=== PATIENT | female | born 2000 | race Caucasian/White ===

== ENCOUNTER 2025-01-25 10:46 | Outpatient (REF) | payer MEDICAID, SELFPAY ==
--- OUTSIDE RECORDS SUMMARY | 2025-01-26 12:17 | XMS_ITS | Encounter Summary ---
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/HCC) Brittni Vargas MD [address] [place] [address] Phone: tel: fax: Referral ID Status Reason Start Date Expiration Date Visits Requested Visits Authorized [id number] Authorized Specialty Services Required 01/25/2025 01/25/2026 1 1 * Hospital - Outpatient (Routine) - Authorized Specialty Diagnoses / Procedures Referred By Kwabena hall Referred To Contact Diagnoses Sleep apnea, unspecified type Procedures Home sleep test Brittni Vargas MD [address] [place] [address] Phone: tel: fax: [address] Phone: tel: fax: Referral ID Status Reason Start Date Expiration Date V isits Requested Visits Authorized [id number] Authorized 01/25/2025 01/25/2026 1 1 Reason for Visit * Reason Comments Cervical Cancer Screening Encounter Details Date Type Department Care Team (Latest Contact Info) Description 01/25/2025 11:00 AM EDT Procedure Visit [facility] [address] [place] [address] Brittni Vargas MD [address] [place] [address] Cervical cancer screening (Primary Dx); Sleep apnea, [...] 01/25/2025 11:26 AM E DT Respiratory Rate 01/25/2025 11:26 AM EDT Oxygen Saturation 98% [...] Exam Vitals reviewed. Exam conducted with a orientation and mobility instructor present. Constitutional: General: She is not in [...] in partial remission, most recent episode mixed ([facility]) Reports has not been able to obtain her psych medications given does not have her insurance card. Needs management by psychiatric provider, referral sent & called. Relevant Orders Referral to Behavioral Health Psychiatry Sleep apnea Patient reports was diagnosed with sleep apnea a couple of years ago in [place], reports she does nothave supplies, no reports [...] in partial remission, most recent episode mixed ([facility]) Reports has not been able to obtain her psych medications given does not have her insurance card. Needs management by psychiatric provider, referral sent & BH called. * Assessment & Plan Note - Brittni Vargas MD - 01/25/2025 12:00 PM EDT Associated Problem(s): Sleep apnea Patient reports was diagnosed with sleep apnea a couple of years ago in [place], reports she does nothave supplies, no reports available. At this moment will need to proceed with new study. Report using CPAP. documented in this encounter Plan of Treatment Upcoming Encounters Date Type Department Care Team (Late st Contact Info) Description 02/21/2025 1:15 PM EDT Office Visit [facility] [address] [place] [address] Brittni Vargas MD [address] [place] [address] Scheduled Orders Name Type Priority Associated Diagnoses Orde r Schedule Home sleep test Sleep Center Routine Sleep apnea, unspecified type Expected: 01/25/2025 (Approximate), Expires: 01/25/2026 STI testing add on (NG, CT, Trich) Pathology and Cytology Routine Cervical cancer screening Ordered: 01/25/2025 Pap Smear Pathology and Cytology Routine Cervical cancer screening Ordered: 01/25/2025 Scheduled Referrals Name Type Priority Associated Diagnoses Order Schedule Referral to Behavioral Health Psychiatry Outpatient Referral Routine Bipolar disorder, in partial remission, most recent episode mixed ([facility]) Expected: 01/25/2025 (Approximate), Expires: 01/25/2026 documented as of this encounter Procedures Procedure Name Priority Date/Time Associated Diagnosis Comments BACTERIAL VAGINOSIS PANEL Routine 01/25/2025 12:00 AM EDT Acute vaginitis documented in this encounter Results * Bacterial Vaginosis (01/25/2025 12:00 AM EDT) TRICHOMONAS VAGINALIS DETECTION BY PCR NOT DETECTED Not Detect [facility] BACTERIAL VAGINOSIS DETECTION BY PCR NEGATIVE Negative [facility] Comment:The BV organism targ ets of the Xpert Xpress MVP test can becommensal in women; Xpert Xpress MVP positive results forbacterial vaginosis should be considered in conjunction withother clinical and patient information to determine thedisease status. Organisms that are not detected by the XpertXpress MVP test have also been reported to be associatedwith BV and aerobic vaginitis.The Xpert Xpress MVP test performance has not been evaluatedin patients under the age of 14. QUYEN GROUP DETECTION BY PCR NOT DETECTED Not Detect [facility] Quyen glab krusei PCR NOT DETECTED Not Detect [facility] Swab Vaginal structure / Unknown 01/25/2025 01/25/2025 us Brittni Vargas MD LAB MICROBIOLOGY - GENERAL OR DERABLES Final Result [facility] [address] [place] [phone] documented in this encounter Visit Diagnoses Diagnosis Cervical cancer [...]
--- OUTSIDE RECORDS SUMMARY | 2025-01-26 12:17 | XMS_ITS | Clinical Summary ---
Author Organization [employer] Address [address] [facility] [address] [place] [address] Care Team Providers Care Residency Program Coordinator Name Role Phone Unavailable Primary Care [...] by mouth at bedtime. 90 tablet 01/12/20 25 Active FLUoxetine (PROzac) 20 MG capsule Take 2 capsules (40 mg) by mouth Once per day. 90 capsule 01/12/20 25 Active pramipexole (Mirapex) 0.25 MG tablet Take [...] Once per day. 28 tablet 3 01/12/20 25 Active metroNIDAZOLE (Flagyl) 500 MG tablet Take [...] Last pcp visit 6 months ago ER: stair fall April 2024 @ [facility] Hospitalizations: mental health 2023 Pmhx: autism, bipolar [...] Description 01/25/2025 11:00 AM EDT Procedure Visit [facility] [address] [place] [address] Brittni Vargas MD Cervical cancer screening (Primary Dx); Sleep apnea, unspecified type; Bipolar disorder, in partial remission, most recent episode mixed (CMS/HCC); Acute vaginitis 01/25/2025 Telephone [facility] [address] [place] [address] Brittni Vargas MD 01/25/2025 Travel 01/20/2025 Population Health Risk Score [facility] () Department [address] [place] [address] [phone] Provider, Population Health Generic 01/11/2025 1:00 PM EDT Telemedicine [facility] [address] [place] [address] Neville Barbosa MD Encounter for medical examination [...] Description 02/21/2025 1:15 PM EDT Office Visit [facility] [address] [place] [address] Brittni Vargas MD [address] [place] [address] Health Maintenance Due Date Last Done Comments SDOH Screening 1998 Disability Screening 1998 Alcohol/Substance Use Screening 2010 Family Planning (PISQ) 2013 HPV Vaccines (1 - 3-dose series) 2013 DTaP/Tdap/Td Vaccines (1 - Tdap) 2017 Hepatitis B Vaccines (1 of 3 - 19+ 3-dose series) 2017 Pap Smear 2019 COVID-19 Vaccine (1 - 2023-2 5 season) 2024 Influenza Vaccine (#1) 2024 Depression Screening 01/25/2026 01/25/2025, 01/25/2025 Tobacco Screening 01/25/2026 01/25/2025 Lipid Panel 01/25/2030 01/25/2025 Zoster Vaccines (1 of 2) 2048 RSV Patients and Patients Aged 60 years or older (1 - 1-dose 75+ series) 2073 HIV Screening Completed 01/25/2025 Hepatitis C Screening Completed 01/25/2025 HIB Vaccines Aged Out No longer eligi [...] on patient's age to complete this topic Procedures Procedure Name Priority Date/Time Associated Diagnosis Comments HEPATITIS C AB W/REFL TO HCV RNA, QN, PCR Routine 01/25/2025 1:22 PM EDT Encounter for medical examination to establish care HIV 1/2 ANTIGEN/ANTIBODY, FOURTH GENERATION W/RFL Routine 01/25/2025 1:22 PM EDT Encounter for medical examination to establish care TSH W/REFLEX TO FT4 Routine 01/25/2025 1 :22 PM EDT Encounter for medical examination to establish care LIPID PANEL, STANDARD Routine 01/25/2025 1:22 PM EDT Encounter for medical examination to establish care COMPREHENSIVE METABOLIC PANEL Routine 01/25/2025 1:22 PM EDT Encounter for medical examination to establish care HEMOGLOBIN A1C Routine 01/25/2025 1:22 PM EDT Encounter for medical examination to establish care HCG, TOTAL, QN Routine 01/25/2025 1:22 PM EDT Encounter for medical examination to establish care CBC WITH AUTO DIFFERENTIAL Routine 01/25/2025 1:22 PM EDT Encounter for medical examination to establish care BACTERIAL VAGINOSIS PANEL Routine 01/25/2025 12:00 AM EDT Acute vaginitis from Last 3 Months Results * TSH W/Reflex to FT4 (01/25/2025 1:22 PM EDT) Pathologist [facility] TSH reflex Free T4 2.37 0.32 - 4.0 uIU/mL [facility] Blood Venous blood specimen / Unknown 01/25/2025 1:22 PM EDT 01/25/2025 2:14 PM EDT Neville Monteiro MD LAB BLOOD ORDERABL ES Final Result [facility] [address] [place] [phone] * (ABNORMAL) CBC auto differential (01/25/2025 1:22 PM EDT) Pathologist [facility] White Blood Count 9.7 4.8 - 10.8 X10*3/uL [facility] Red Blood Count 4.60 4.20 - 5.50 X10*6/uL [facility] Hemoglobin 13.0 12.0 - 16.0 g/dl [facility] Hematocrit 38.2 37.0 - 47.0 % [facility] Mean Corpuscular Volume 83.0 80.0 - 98.0 fL [facility] Mean Corpuscular Hemoglobin 28.3 27.0 - 33.0 pg [facility] Mean Corpuscular HGB Conc 34.0 31.0 - 35.0 g/dl [facility] Red Cell Distribution Width 12.3 11.0 - 16.0 % [facility] Platelet Count 326 160 - 400 X10*3/uL [facility] Mean Platelet Volume 9.6 9.4 - 12.3 fL [facility] Neutrophils Percent Auto 68.9 45 - 73 % [facility] Imm Gran Pct Auto 0.9(H) 0.0 - 0.4 % [facility] Lymphocytes Percent Auto 23.0 20 - 40 % [facility] Monocytes Percent Auto 5.3 2 - 11 % [facility] Eosinophils Percent Auto 1.6 0 - 4 % [facility] Basophils Percent Auto 0.3 0 - 2 % [facility] NRBC Pct Auto 0.0 0.0 - 0.2 /100WBC [facility] Neutrophils Absolute Auto 6.7 2.0 - 8.3 x10*3/uL [facility] Imm Gran Abs Auto 0.09(H) 0.00 - 0.03 X10*3/uL [facility] Lymphocytes Absolute Auto 2.2 1.2 - 4.9 X10*3/uL [facility] Monocytes Absolute Auto 0.5 0.1 - 1.2 X10*3/uL [facility] Eosinophils Absolute Auto 0.2 0.0 - 0.4 X10*3/uL [facility] Basophils Absolute Auto 0.0 0.0 - 0.2 X10*3/uL [facility] NRBC Abs Auto 0.000 0.0 - 0.012 X10*3/uL [facility] Blood Venous blood specimen / Unknown 01/25/2025 1:22 PM EDT 01/25/2025 2:17 PM EDT us Neville Monteiro MD LAB BLOOD ORDERABL ES Final Result [facility] [address] [place] [phone] * Hepatitis C Antibody with Reflex to HCV, RNA, Quantitative, Real-Time PCR (01/25/2025 1:22 PM EDT) Hepatitis C Antibody Nonreactive Nonreactive [facility] Comment:Antibodies to HCV no t detected; does not exclude early acuteHCV infection. Blood Venous blood specimen / Unknown 01/25/2025 1:22 PM EDT 01/25/2025 2:14 PM EDT Neville Monteiro MD LAB BLOOD ORDERABL ES Final Result Performing Organization Address [facility] Co de Phone Number [facility] [address] [place] [phone] * HIV-1/2 Antigen and Antibodies, Fourth Generation, with Reflexes (01/25/2025 1:22 PM EDT) HIV AB/AG Nonreactive Nonreactive [facility] Comment:HIV-1 p24 Ag and/or HIV-1/HIV-2 Ab not detected.A test result that is nonreactive does not exclude thepossibility of exposure to or infection with HIV-1 and/orHIV-2. Nonreactive results in this assay for individualswith prior exposure to HIV-1 and/or HIV-2 may be due toantigen and antibody levels that are below the limit ofdetection of this assay.The [employer] HIV Ag/Ab Combo assay result andsupplemental assay results should be interpreted inconjunction with the patient's clinical presentation,history and other laboratory results. If the results areinconsistent with clinical evidence, additional testing issuggested to confirm the result. Blood Venous blood specimen / Unknown 01/25/2025 1:22 PM EDT 01/25/2025 2:14 PM EDT us Neville Monteiro MD LAB BLOOD ORDERABL ES Final Result Performing Organization Address [facility]/ZIP Co de Phone Number [facility] [address] [place] [phone] * hCG, Total, Quantitative (01/25/2025 1:22 PM EDT) HCG Quantitative <2 mIU/mL [facility] Comment:Weeks post LMP Appro ximate hCG(Last Menstrual Period) Range (mIU/ml)3 - 4 weeks 9 - 1304 - 5 weeks 75 - 2,6005 - 6 weeks 850 - 20,8006 - 7 weeks 4000 - 100,2007 - 12 weeks 11,500 - 289,94109 - 16 weeks 18,300 - 137,95320 - 29 weeks (2nd trimester) 1,400 - 53,48961 - 41 weeks (3rd trimester) 940 - 60,000The [employer] B- hCG assay is used for the early detection ofpregnancy; it cannot be used to diagnose any conditionunrelated to . If a B-hCG level is not supportedby the clinical evidence, results should be confirmed by analternative method (qualitative urine hCG, for example). Blood Venous blood specimen / Unknown 01/25/2025 1:22 PM EDT 01/25/2025 2:14 PM EDT Neville Monteiro MD LAB BLOOD ORDERABL ES Final Result [facility] [address] [place] [address] [phone] * Hemoglobin A1c (01/25/2025 1:22 PM EDT) Hemoglobin A1c 5.3 <6.0 % [facility] Comment:Hemoglobin A1C Refer ence Range Adults: 4.8 - 6.0 % Non diabetic: < 6.0 % Goal: < 7.0 %Additional Action Suggested: > 8.0 %Note: Hemoglobin A1c results are invalid for patients with abnormal amounts of HbF. Blood transfusions may impact the HbA1c concentration in the patient sample. Estimated Average Glucose 105 mg/dL [facility] Comment:eAG = Estimated ave rage glucose which is %A1C expressed asaverage glucose, using the formula of the K0E-FilprxcTeomsvv Glucose study (ADAG), Diabetes Care, Vol.31,#8,Apr. 2007 Blood Venous blood specimen / Unknown 01/25/2025 1:22 PM EDT 01/25/2025 2:17 PM EDT Neville Monteiro MD LAB BLOOD ORDERABL ES Final Result Performing Organization Address [facility]/ZIP Co de Phone Number [facility] [address] [place] [phone] * (ABNORMAL) Lipid Panel, Standard (01/25/2025 1:22 PM EDT) Triglycerides 93 <150 mg/dL [facility] Comment:Desirable Triglyceri de: less than 150 mg/dLBorderline High Triglyceride 150-199 mg/dLHigh Triglyceride: 200-499 mg/dLVery High Triglyceride: greater than or equal to 5OO mg/dL Cholesterol 161 <200 mg/dL [facility] Comment:Desirable Cholestero l: less than 200 mg/dLBorderline High Cholesterol: 200-239 mg/dLHigh Cholesterol: greater than 239 mg/dL LDL Cholesterol Calculated 114(H) <100 mg/dL [facility] Comment:Desirable LDL: less than 100 mg/dLNear Optimal/Above Optimal LDL: 110- 129 mg/dLBorderline High LDL: 130-159 mg/dLHigh LDL: 160-189 mg/dLVery High LDL: greater than or equal to 190 mg/dL HDL Cholesterol 29(L) >40 mg/dL [facility] Comment:Desirable HDL: great er than 40 mg/dL Note: This HDL assay may give artificially low results in patients with liver disease. Blood Venous blood specimen / Unknown 01/25/2025 1:22 PM EDT 01/25/2025 2:14 PM EDT Neville Monteiro MD LAB BLOOD ORDERABL ES Final Result Performing Organization Address City/[facility]/ZIP Co de Phone Number [facility] [address] [place] [phone] * (ABNORMAL) Comprehensive Metabolic Panel (01/25/2025 1:22 PM EDT) Sodium 138 135 - 145 mmol/L [facility] Potassium 4.3 3.3 - 5.1 mmol/L [facility] Chloride 108 96 - 108 mmol/L [facility] Carbon Dioxide 24 22 - 29 mmol/L [facility] Anion Gap 10(L) 12 - 20 [facility] Urea Nitrogen (BUN) 14 9 - 16 mg/dL [facility] Creatinine, Serum 0.72 0.5 - 1.4 mg/dL [facility] Estimated Glomerular Filt Rate >60 [facility] Comment:Chronic Kidney Disea se: Estimated GFR < 60 mL/min/1.51p8Uvftlg Kidney Disease: Estimated GFR < 15 mL/min/1.73m2 Glucose 94 60 - 115 mg/dL [facility] Calcium 9.1 8.4 - 10.2 mg/dL [facility] Bilirubin, Total 0.3 0.0 - 1.0 mg/dL [facility] Aspartate Amino Transferase 19 5 - 31 U/L [facility] Alanine Aminotransferase 15 0 - 31 U/L [facility] Total Protein 7.0 6.5 - 8.0 g/dL [facility] Albumin Level 3.9 3.5 - 5.0 g/dL [facility] Alkaline Phosphatase 60 39 - 117 U/L [facility] Blood Venous blood specimen / Unknown 01/25/2025 1:22 PM EDT 01/25/2025 2:14 PM EDT us Neville Monteiro MD LAB BLOOD ORDERABL ES Final Result [facility] [address] [place] [phone] * Bacterial Vaginosis (01/25/2025 12:00 AM EDT) TRICHOMONAS VAGINALIS DETECTION BY PCR NOT DETECTED Not Detect [facility] BACTERIAL VAGINOSIS DETECTION BY PCR NEGATIVE Negative [facility] Comment:The BV organism targ ets [...] DETECTION BY PCR NOT DETECTED Not Detect [facility] Quyen glab krusei PCR NOT DETECTED Not Detect [facility] Swab Vaginal structure / Unknown 01/25/2025 01/25/2025 us Brittni Vargas MD LAB MICROBIOLOGY - GENERAL OR DERABLES Final Result [facility] [address] [place] [phone] from Last 3 Months Insurance [facility] C3
--- OUTSIDE RECORDS SUMMARY | 2025-01-26 12:17 | XMS_ITS | Encounter Summary ---
Author Organization [employer] [facility] Address [address] [facility] [address] [place] [address] Care Team Providers Care Nutrition Educator Name Role Phone Unavailable Primary Care Provider [...] Author 11 01/25/2025 1:24 PM EDT Jabier Cordon * How difficult have these problems made [...] or on edge 3 01/25/2025 1:15 PM EDJabier Concepcion Not being able to stop or control [...] happen 1 01/25/2025 1:15 PM EDT Jabier Thurston GLENNA-7 Total Score 15 01/25/2025 1:15 PM EDT Jabier [place] documented as of this encounter Plan of Treatment Upcoming Encounters Date Type Department Care Team (Late st Contact Info) Description 02/21/2025 1:15 PM EDT Office Visit [facility] [address] [place] [address] Brittni Vargas MD [address] [place] [address] documented as of this encounter Visit Diagnoses Not on filedocumented in this encounter Additional Health Concerns Assessment Noted Time PHQ-9 Depression Total Score: 11 025 1:24 PM EDT documented as of this encounter
--- OUTSIDE RECORDS SUMMARY | 2025-01-26 12:17 | XMS_ITS | Encounter Summary ---
Author Organization [employer] Address [address] [facility] [address] [place] [address] Care Team Providers Care Coffee Taster Name Role Phone Unavailable Primary Care Provider Unavailabl e Encounter Details Date Type Department Care Team (Late st Contact Info) Description 01/25/2025 Telephone [facility] [address] [place], [place] [phone] Brittni Vargas MD [address] [place], [place] [phone] Social History Tobacco Use Types Packs/Day Years [...] t o TP appt next month with Dr Varags. * Telephone Encounter - Savanah Coppola RN [...] Description 02/21/2025 1:15 PM EDT Office Visit [facility]S [address] [place] [address] Brittni Vargas MD [address] [place] [address] documented as of this encounter Visit Diagnoses Not on filedocumented in this encounter Additional Health Concerns Assessment Noted Time PHQ-9 Depression Total Score: 11 025 1:24 PM EDT documented as of this encounter
[2025-01-27 19:48] LABS: C. trachomatis RNA TMA NOT DETECTED (NOT DETECTED); N. gonorrhoeae RNA TMA NOT DETECTED (NOT DETECTED); Trichomonas (NAAT) NOT DETECTED (NOT DETECTED)
== END 2025-01-25 10:47 | disposition home or self-care (01) ==
LOC: HO.HHCLNP 10:46
PROVIDERS: Visit Provider Family Medicine
DX: Z12.4 Encounter for screening for malignant neoplasm of cervix (principal); Z11.3 Encounter for screening for infections with a predominantly sexual mode of transmission
CPT/HCPCS: 87491; 87591; 87661; 88175

== ENCOUNTER 2025-01-25 13:12 | Outpatient (REF) | payer MEDICAID, SELFPAY ==
[2025-01-25 14:19] LABS: MANUAL DIFF FLAG NO
--- OUTSIDE RECORDS SUMMARY | 2025-01-25 14:22 | XMS_ITS | Encounter Summary ---
Author Organization [employer] Address [address] [facility] [address] [place] [address] Care Team Providers Care Aoc Plans Intelligence Officer Chief Name Role Phone Unavailable Primary Care Provider Unavailabl e Encounter Details Date Type Department Care Team ([facility] st Contact Info) Description 01/25/2025 Telephone [facility] MED & PEDS [address] [place] [address] Brittni Vargas MD [address] [place] [address] Social History Tobacco Use Types Packs/Day Years Used Date Smoking Tobacco: Never Smokeless Tobacco: Current Snuff Alcohol Use Standard Drinks/Week Comments Never 0 (1 standard drink = 0.6 oz pur e alcohol) Depression Answer Date Recorded Patient Health Questionnaire-9 Score 11 01/25/2025 Patient Health Questionnaire-9 Score 11 01/25/2025 Last PHQ-9: Questionnaire Data Not on file 0 01/25/2025 Depression Answer Date Recorded Patient Health Questionnaire-2 Score 6 01/25/2025 Comments Unknown Sex and Gender Information Value Date Recorded Sex Assigned at Female 01/07/2025 3:10 PM EDT Legal Sex Female 3:10 PM EDT Gender Identity Female 01/10/2025 2:25 PM EDT Sexual Orientation Don't know 01/10/2025 2: 25 PM EDT documented as of this encounter Miscellaneous Notes * Telephone Encounter - Savanah Coppola RN - 01/25/2025 11:23 AM EDT Pt came in for PAP. Pt was advised to come to [facility] to get TP appt scheduled . Pt agrees t o TP appt next month with . * Telephone Encounter - Savanah Coppola RN - 01/25/2025 11:23 AM EDT ----- Message from Lesvia Forrest sent at 01/11/2025 2:38 PM EDT ----- Regarding: wrap up Joo Young, This pt had a tele with on 01/11/25. Patient would like to be followed by a women provider. ( Follow up in about 3 months (around 04/13/2025) for 3-4 months, patient wants to be seen by a female provider. ) Thank you Kindly, documented in this encounter Plan of Treatment Upcoming Encounters Date Type Department Care Team (Late st Contact Info) Description 02/21/2025 1:15 PM EDT Office Visit [facility] MED & PEDS [address] [place] [address] Brittni Vargas MD [address] [place] [address] documented as of this encounter Visit Diagnoses Not on filedocumented in this encounter Additional Health Concerns Assessment Noted Time PHQ-9 Depression Total Score: 11 025 1:24 PM EDT documented as of this encounter
--- OUTSIDE RECORDS SUMMARY | 2025-01-25 14:22 | XMS_ITS | Clinical Summary ---
Author Organization [employer] Address [address] [facility] [address] [place] [address] Care Team Providers Care Site Safety Representative Name Role Phone Unavailable Primary Care Provider Unavailabl e Allergies Active Allergy Reactions Criticality Noted Date Comments Juniper Berries Anaphylaxis High 01/11/2025 Medications * This document contains information received from the source organization and may not represent a complete record from that organization. methocarbamol (Robaxin) 750 MG tablet Take 750 mg by mouth if needed each day for muscle spasms. Active diclofenac (Voltaren) 75 MG EC tablet Take 75 mg by mouth if needed in the morning and at bedtime (pain). Do not crush, chew, or split. Active propranolol (Inderal) 20 MG tabletIndicati ons:Anxiety Take 20 mg by mouth 2 times daily. Active traZODone (Desyrel) 100 MG tablet Take 200 mg by mouth at bedtime. Active montelukast (Singulair) 10 MG tablet Take 10 mg by mouth at bedtime. Active hyoscyamine (Levsin) 0.125 MG/5ML elixir Take 125 mcg by mouth every 12 (twelve) hours if needed for bladder spasms. Active hydrOXYzine HCl (Atarax) 25 MG tablet Take 1 tablet (25 mg) by mouth every 8 (eight) hours if needed for anxiety. 90 tablet 3 01/12/20 25 026 Active ferrous gluconate (Fergon) 324 (38 Fe) MG tablet Take 1 tablet (324 mg) by mouth with breakfast. 90 tablet 01/12/20 25 Active amphetamine-de xtroamphetamin e XR (Adderall XR) 15 MG 24 hr capsule Take 1 capsule (15 mg) by mouth in the morning. Do not crush or chew. 30 capsule 01/12/20 25 Active haloperidol (Haldol) 1 MG tablet Take 1 tablet (1 mg) by mouth at bedtime. 90 tablet 01/12/20 Active FLUoxetine (PROzac) 20 MG capsule Take 2 capsules (40 mg) by mouth Once per day. 90 capsule 01/12/20 Active pramipexole (Mirapex) 0.25 MG tablet Take 3 tablets (0.75 mg) by mouth Once per day. 90 tablet 01/12/20 25 Active albuterol 108 (90 Base) MCG/ACT inhaler Inhale 2 puffs every 6 (six) hours if needed for wheezing. 18 g 01/12/20 25 Active ketoconazole (NIZOral) 2 % cream Apply 1 Application. topically Once per day. Active drospirenone-e thinyl estradiol (Alejandrina, Gianvi) 3-0.02 MG tablet Take 1 tablet by mouth Once per day. 28 tablet 3 01/12/20 026 Active metroNIDAZOLE (Flagyl) 500 MG tablet Take 1 tablet (500 mg) by mouth 2 times daily for 7 days. 14 tablet 01/26/20 25 025 Active hydrOXYzine HCl (Atarax) 25 MG tablet Take 25 mg by mouth every 8 (eight) hours if needed for anxiety. 025 Discontinued(Re order (will not trigger notification to Pharmacy)) haloperidol (Haldol) 1 MG tablet Take 1 mg by mouth at bedtime. 025 Discontinued(Re order (will not trigger notification to Pharmacy)) amphetamine-de xtroamphetamin e XR (Adderall XR) 15 MG 24 hr capsule Take 15 mg by mouth in the morning. Do not crush or chew. 025 Discontinued(Re order (will not trigger notification to Pharmacy)) FLUoxetine (PROzac) 20 MG capsule Take 40 mg by mouth Once per day. 025 Discontinued(Re order (will not trigger notification to Pharmacy)) ferrous gluconate (Fergon) 324 (38 Fe) MG tablet Take 324 mg by mouth with breakfast. 025 Discontinued(Re order (will not trigger notification to Pharmacy)) Active Problems Problem Noted Date Diagnosed Date Sleep apnea 01/25/2025 Assessment & Plan (01/25/2025 12:00 PM EDT): Patient reports was diagnosed with sleep apnea a couple of years ago in [place], reports she does not have supplies, no reports available. At this moment will need to proceed with new study. Report using CPAP. Cervical cancer screening 01/25/2025 Assessment & Plan (01/25/2025 12:03 PM EDT): 24 y.o. here for cervical cancer screening. Will continue monitoring following ASCCP guidelines. Acute vaginitis 01/25/2025 Assessment & Plan (01/25/2025 12:03 PM EDT): Consistent with BV, will send swab and rx metronidazole 500 mg BID Anxiety with depression 01/25/2025 Encounter for medical examination to establish c are 01/11/2025 Assessment & Plan (01/11/2025 1:21 PM EDT): Last pcp visit 6 months ago ER: [facility] [address] April 2024 @ [place] Hospitalizations: mental health 2023 Pmhx: autism, bipolar depression, boderline personality, adhd, cptsd, sleep apnea, iron def anemia, pre diabetes PSHX: cholecystectomy 2020, All: juniper/gin Meds Bipolar disorder, in partial remission, most recent episode mixed 01/11/2025 Assessment & Plan (01/25/2025 12:03 PM EDT): Reports has not been able to obtain her psych medications given does not have her insurance card. Needs management by psychiatric provider, referral sent & called. Assessment & Plan (01/11/2025 1:42 PM EDT): Will renew medications, will refer to for evaluation, no active suicidal/homicidal ideas Chronic pain of both ankles 01/11/2025 Assessment & Plan (01/11/2025 1:43 PM EDT): Patient fell from stairs back on September that required a ER visit, patient is requesting a podiatry evaluation, will place referral Encounter for initial prescription of contracept pippa pills 01/11/2025 Encounters * This document contains information received from the source organization and may not represent a complete record from that organization. Date Type Department Care Team Description 01/25/2025 11:00 AM EDT Procedure Visit [facility] MED & PEDS [address] [place] [address] Brittni Vargas MD Cervical cancer screening (Primary Dx); Sleep apnea, unspecified type; Bipolar disorder, in partial remission, most recent episode mixed (CMS/HCC); Acute vaginitis 01/25/2025 Telephone [facility] MED & PEDS [address] [place] [address] Brittni Vargas MD 01/25/2025 Travel 01/20/2025 Population Health Risk Score [facility] ([facility]) Department [address] [place] [id number] Provider, Population Health Generic 01/11/2025 1:00 PM EDT Telemedicine [facility] MED & PEDS [address] [place] [address] Neville Barbosa MD Encounter for medical examination to establish care (Primary Dx); Bipolar disorder, in partial remission, most recent episode mixed (CMS/HCC); Chronic pain of both ankles; Encounter for initial prescription of contraceptive pills 01/11/2025 Travel from Last 3 Months Family History Medical History Relation Name Comments Asperger's syndrome Father Bipolar disorder Father Diabetes Father Leukemia Maternal Grandfather Ovarian cancer Maternal Grandmother Breast cancer Mother Coronary artery disease Mother Deep vein thrombosis Mother Diabetes Mother Hypertension Mother Relation Name Status Comments Father Maternal Grandfather Maternal Grandmother Mother Social History Tobacco Use Types Packs/Day Years Used Date Smoking Tobacco: Never Smokeless Tobacco: Current Snuff Tobacco Cessation:Ready to Q uit: Not Asked; Counseling Given: Not Answered Alcohol Use Standard Drinks/Week Comments Never 0 [...] Don't know 01/10/2025 2: 25 PM EDT Last Filed Vital Signs Vital Sign Reading Time Taken Comments Blood Pressure 127/72 01/25/2025 11:26 AM EDT Pulse 80 01/25/2025 11:26 AM EDT Temperature 36.5 ??C (97.7 ??F) 01/25/2025 11:26 AM E DT Respiratory Rate 20 01/25/2025 11:26 AM EDT Oxygen Saturation 98% 01/25/2025 11:26 AM EDT Inhaled Oxygen Concentration - - Weight 116 kg (255 lb) 01/25/2025 11:26 AM EDT Height 165.1 cm (5' 5 ) 01/25/2025 11:26 AM EDT Body Mass Index 42.43 01/25/2025 11:26 AM EDT Plan of Treatment Upcoming Encounters Date Type Department Care Team (Late st Contact Info) Description 02/21/2025 1:15 PM EDT Office Visit [facility] MED & PEDS [address] [place] [address] Brittni Vargas MD [address] [place] [address] Health Maintenance Due Date Last Done Comments HIV Screening 1998 Lipid Panel 1998 SDOH Screening 1998 Disability Screening 1998 Alcohol/Substance Use Screening 2010 Family Planning (PISQ) 2013 HPV Vaccines (1 - 3-dose series) 2013 Hepatitis C Screening 2016 DTaP/Tdap/Td Vaccines (1 - Tdap) 2017 Hepatitis B Vaccines (1 of 3 - 19+ 3-dose series) 2017 Pap Smear 2019 COVID-19 Vaccine (1 - 2023-2 5 season) 2024 Influenza Vaccine (#1) 2024 Depression Screening 01/25/2026 01/25/2025, 01/25/2025 Tobacco Screening 01/25/2026 01/25/2025 Zoster Vaccines (1 of 2) 2048 RSV Patients and Patients Aged 60 years or older (1 - 1-dose 75+ series) 2073 HIB Vaccines Aged Out No longer eligi ble based on patient's age to complete this topic Hepatitis A Vaccines Aged Out No long er eligible based on patient's age to complete this topic IPV Vaccines Aged Out No longer eligi ble based on patient's age to complete this topic Meningococcal B Vaccine Aged Out No l onger eligible based on patient's age to complete this topic Meningococcal Vaccine Aged Out No kelsi susan eligible based on patient's age to complete this topic Pneumococcal Vaccine: Pediatrics (0 to 5 Years) and At-Risk Patients (6 to 49) Years) Aged Out No longer eligible b ased on patient's age to complete this topic RSV under 20 months Aged Out No longe r eligible based on patient's age to complete this topic Rotavirus Vaccines Aged Out No longer eligible based on patient's age to complete this topic Insurance [facility] C[facility]
--- OUTSIDE RECORDS SUMMARY | 2025-01-25 14:22 | XMS_ITS | Encounter Summary ---
Author Organization [facility] [facility] Address [address] [facility] 7[address] [place] [address] Care Team Providers Care City Secretary Name Role Phone Unavailable Primary Care Provider Unavailabl e Encounter Details Date Type Department Care Team (Late Contact Info) Description 01/20/2025 Population Health Risk Score [facility] ([facility]) Department [address] [id number] Provider, Population Health Generic Social History Tobacco Use Types Packs/Day Years Used Date Smoking Tobacco: Never Smokeless Tobacco: Current Snuff Alcohol Use Standard Drinks/Week Comments Never 0 (1 standard drink = 0.6 oz pur e alcohol) Comments Unknown Sex and Gender Information Value Date Recorded Sex Assigned at Female 01/07/2025 3:10 PM EDT Legal Sex Female 3:10 PM EDT Gender Identity Female 01/10/2025 2:25 PM EDT Sexual Orientation Don't know 01/10/2025 2: 25 PM EDT documented as of this encounter Plan of Treatment Upcoming Encounters Date Type Department Care Team (Late st Contact Info) Description 02/21/2025 1:15 PM EDT Office Visit [facility] MED & PEDS [address] [place] [address] Brittni Vargas MD [address] [place] [address] documented as of this encounter Visit Diagnoses Not on filedocumented in this encounter
--- OUTSIDE RECORDS SUMMARY | 2025-01-25 14:22 | XMS_ITS | Encounter Summary ---
Author Organization [employer] Address [address] [facility] [address] [place] [address] Care Team Providers Care Auto Brake Technician Name Role Phone Unavailable Primary Care Provider Unavailabl e Encounter Details Date Type Department Care Team (Latest Contact Info) Description 01/25/2025 Travel Social History Tobacco Use Types Packs/Day Years [...] PM EDT documented as of this encounter Functional Status * Over the past 2 weeks, how often have you been bothered by any of the following problems? Question Answer Date of Assessment Author Patient Health Questionnaire-2 Score 6 01/25/2025 1:24 PM EDT Jabier Peña * Little interest or pleasure in doing things Answer Date of Assessment Author Nearly every day 01/25/2025 1:24 PM EDT Jabier Thurston * Feeling down, depressed, or hopeless Answer Date of Assessment Author Nearly every day 01/25/2025 1:24 PM EDT Jabier Thurston * Trouble falling or staying asleep, or sleeping too much Answer Date of Assessment Author More than half the days 01/25/2025 1:24 PM EDT Jabier Lee * Feeling tired or having little energy Answer Date of Assessment Author Several days 01/25/2025 1:24 PM EDT Jabier Cordon * Poor appetite or overeating Answer Date of Assessment Author Several days 01/25/2025 1:24 PM EDT Jabier Cordon * Feeling bad about yourself - or that you are a failure or have let yourself or your family down Answer Date of Assessment Author Several days 01/25/2025 1:24 PM EDT Jabier Cordon * Trouble concentrating on things, such as reading the newspaper or watching television Answer Date of Assessment Author Not at all 01/25/2025 1:24 PM EDT Jabier Cordon * Moving or speaking so slowly that other people could have noticed? Or the opposite - being so fidgety or restless that you have been moving around a lot more than usual. Answer Date of Assessment Author Not at all 01/25/2025 1:24 PM EDT Jabier Cordon * Thoughts that you would be better off or hurting yourself in some way Answer Date of Assessment Author Not at all 01/25/2025 1:24 PM EDT Jabier Cordon * Patient Health Questionnaire-9 Score Answer Date of Assessment Author 11 01/25/2025 1:24 PM EDT Jabier oCrdon * How difficult have these problems made it for you to do your work, take care of things at home, or get along with other people? Answer Date of Assessment Author Very difficult 01/25/2025 1:24 PM EDT Jabier Cordon * Over the last 2 weeks, how often have you been bothered by any of the following problems? Question Answer Date of Assessment Author Feeling nervous, anxious, or on edge 3 01/25/2025 1:15 PM EDT Jabier Kearney Not being able to stop or control worrying 3 01/25/2025 1:15 PM EDT Jabier Kearney Worrying too much about different things 3 01/25/2025 1:15 PM EDT Jabier Kearney Trouble relaxing 2 01/25/2025 1:15 PM EDT S Jabier Simpson Being so restless that it is hard to sit still 0 01/25/2025 1:15 PM EDT Jabier Kearney Becoming easily annoyed or irritable 3 01/25/2025 1:15 PM EDT Jabier Kearney Feeling afraid as if something awful might happen 1 01/25/2025 1:15 PM EDT Jabier Thurtson GLENNA-7 Total Score 15 01/25/2025 1:15 PM EDT Jabier Kearney documented as of this encounter Plan of Treatment Upcoming Encounters Date Type Department Care Team (Late st Contact Info) Description 02/21/2025 1:15 PM EDT Office Visit [facility] MED & PEDS [address] [place] [address] Brittni Vargas MD [address] [place] [address] documented as of this encounter Visit Diagnoses Not on filedocumented in this encounter Additional Health Concerns Assessment Noted Time PHQ-9 Depression Total Score: 11 025 1:24 PM EDT documented as of this encounter
--- OUTSIDE RECORDS SUMMARY | 2025-01-25 14:22 | XMS_ITS | Encounter Summary ---
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 Name Role Phone Unavailable Primary Care Provider Unavailabl e Reason for Referral * Consultation (Routine) - Authorized Specialty Diagnoses / Procedures Referred By Kwabena hall Referred To Contact Psychiatry / Behavioral Health Diagnoses Bipolar disorder, in partial remission, most recent episode mixed ([facility]/HCC) Brittni Vargas MD [address] [place] [address] Phone: tel: fax: Referral ID Status Reason Start Date Expiration Date Visits Requested Visits Authorized [id number] Authorized Specialty Services Required 01/25/2025 01/25/2026 1 1 * Hospital - Outpatient (Routine) - Pending Review Specialty Diagnoses / Procedures Referred By Kwabena hall Referred To Contact Diagnoses Sleep apnea, unspecified type Procedures Home sleep test Brittni Vargas MD [address] [place] [address] Phone: tel: fax: Sleep Medicine Service [facility] [address], [address] [place] [address] Phone: tel: fax: Referral ID Status Reason Start Date Expiration Date V isits Requested Visits Authorized [id number] Pending Review 01/25/2025 01/25/2026 1 1 Reason for Visit * Reason Comments Cervical Cancer Screening Encounter Details Date Type Department Care Team (Latest Contact Info) Description 01/25/2025 11:00 AM EDT Procedure Visit [facility] [address] [place] [address] Brittni Vargas MD [address] [place] [address] Cervical cancer screening (Primary Dx); Sleep apnea, unspecified type; Bipolar disorder, in partial remission, most recent episode mixed (CMS/HCC); Acute vaginitis Social History Tobacco Use Types Packs/Day Years [...] PM EDT documented as of this encounter Last Filed Vital Signs Vital Sign Reading [...] Mass Index 42.43 01/25/2025 11:26 AM EDT documented in this encounter Progress Notes * Brittni Vargas MD - 01/25/2025 11:00 AM EDT Subjective Patient ID: Silvia Parham is a 24 y.o. female who presents for Cervical Cancer Screening. 24 y.o. female here for annual well woman preventive exam. LMP: Patient's last menstrual period was 01/02/2025 (exact date). Sexual activity: Social History Substance and Sexual Activity Sexual activity: Yes Partners: Male control/protection: None intention: BC method: Smoking hx: Tobacco Use: High Risk (01/25/2025) Tobacco Smoking Tobacco Use: Never Smokeless Tobacco Use: Current Passive Exposure: Not on file Alcohol use hx: Social History Substance and Sexual Activity Alcohol use: Never OBHx: The patient has never been . IPV: Denies IPV Reviewed family hx Review of patient's family history indicates: Problem: Coronary artery disease Relation: Mother Name: Age of Onset: (Not Specified) Problem: Deep vein thrombosis Relation: Mother Name: Age of Onset: (Not Specified) Problem: Diabetes Relation: Mother Name: Age of Onset: (Not Specified) Problem: Breast cancer Relation: Mother Name: Age of Onset: 57 Problem: Hypertension Relation: Mother Name: Age of Onset: (Not Specified) Problem: Diabetes Relation: Father Name: Age of Onset: (Not Specified) Problem: Bipolar disorder Relation: Father Name: Age of Onset: (Not Specified) Problem: Asperger's syndrome Relation: Father Name: Age of Onset: (Not Specified) Problem: Ovarian cancer Relation: Maternal Grandmother Name: Age of Onset: (Not Specified) Problem: Leukemia Relation: Maternal Grandfather Name: Age of Onset: (Not Specified) Health Maintenance: No results found for: HMPAP , HMMAMMO , HMCOLON Review of Systems Constitutional: Negative for appetite change, fatigue and fever. HENT: Negative for congestion, postnasal drip and rhinorrhea. Eyes: Negative for discharge and redness. Respiratory: Negative for apnea, cough, chest tightness and shortness of breath. Cardiovascular: Negative for chest pain. Gastrointestinal: Negative for abdominal pain. Endocrine: Negative for polyphagia. Genitourinary: Negative for difficulty urinating, dysuria and urgency. Musculoskeletal: Negative for arthralgias. Neurological: Negative for dizziness, light-headedness, numbness and headaches. Hematological: Negative for adenopathy. Does not bruise/bleed easily. Objective Visit Vitals BP 127/72 (BP Location: Right arm, Patient Position: Sitting, BP Cuff Size: Large adult) Pulse 80 Temp 97.7 ??F (36.5 ??C) (Oral) Resp 20 Ht 5' 5 (1.651 m) Wt 255 lb (116 kg) LMP 01/02/2025 (Exact Date) SpO2 98% BMI 42.43 kg/m?? Smoking Status Never BSA 2.31 m?? Physical Exam Vitals reviewed. Exam conducted with a survey analyst present. Constitutional: General: She is not in acute distress. Appearance: She is obese. She is not ill-appearing. HENT: Head: Normocephalic and atraumatic. Nose: No congestion. Pulmonary: Effort: Pulmonary effort is normal. No respiratory distress. Breath sounds: Normal breath sounds. Chest: Chest wall: No deformity, tenderness or crepitus. Breasts: Breasts are symmetrical. Right: Normal. No inverted nipple, mass, nipple discharge, skin change or tenderness. Left: Normal. No inverted nipple, mass, nipple discharge, skin change or tenderness. Genitourinary: Urethra: No prolapse. Vagina: Normal. Cervix: Discharge present. Rectum: Normal. Musculoskeletal: Cervical back: Normal range of motion. Lymphadenopathy: Upper Body: Right upper body: No supraclavicular, axillary or pectoral adenopathy. Left upper body: No supraclavicular, axillary or pectoral adenopathy. Skin: Comments: Left arm with recent horizontal cuts (from cutting) Neurological: General: No focal deficit present. Mental Status: She is alert. Psychiatric: Mood and Affect: Mood normal. Assessment/Plan Problem List Items Addressed This Visit Bipolar disorder, in partial remission, most recent episode mixed ([facility]) Reports has not been able to obtain her psych medications given does not have her insurance card. Needs management by psychiatric provider, referral sent & BH called. Relevant Orders Referral to Behavioral Health Psychiatry Sleep apnea Patient reports was diagnosed with sleep apnea a couple of years ago in [place], reports she does nothave supplies, no reports available. At this moment will need to proceed with new study. Report using CPAP. Relevant Orders Home sleep test Cervical cancer screening - Primary 24 y.o. here for cervical cancer screening. Will continue monitoring following ASCCP guidelines. Relevant Orders STI testing add on (NG, CT, Trich) Pap Smear Acute vaginitis Consistent with BV, will send swab and rx metronidazole 500 mg BID Relevant Orders Bacterial Vaginosis Patient was scheduled TP appt with female provider per her request. documented in this encounter Miscellaneous Notes * Assessment & Plan Note - Brittni Vargas MD - 01/25/2025 12:03 PM EDT Associated Problem(s): Acute vaginitis Consistent with BV, will send swab and rx metronidazole 500 mg BID * Assessment & Plan Note - Brittni Vargas MD - 01/25/2025 12:03 PM EDT Associated Problem(s): Cervical cancer screening 24 y.o. here for cervical cancer screening. Will continue monitoring following ASCCP guidelines. * Assessment & Plan Note - Brittni Vargas MD - 01/25/2025 12:01 PM EDT Associated Problem(s): Bipolar disorder, in partial remission, most recent episode mixed ([facility]) Reports has not been able to obtain her psych medications given does not have her insurance card. Needs management by psychiatric provider, referral sent & BH called. * Assessment & Plan Note - Brittni Vargas MD - 01/25/2025 12:00 PM EDT Associated Problem(s): Sleep apnea Patient reports was diagnosed with sleep apnea a couple of years ago in [place], reports she does nothave supplies, no reports available. At this moment will need to proceed with new study. Report using CPAP. documented in this encounter Plan of Treatment Upcoming Encounters Date Type Department Care Team (Late st Contact Info) Description 02/21/2025 1:15 PM EDT Office Visit [facility] [address] [place] [address] Brittni Vargas MD [address] [place] [address] Scheduled Orders Name Type Priority Associated Diagnoses Orde r Schedule Home sleep test Sleep Center Routine Sleep apnea, unspecified type Expected: 01/25/2025 (Approximate), Expires: 01/25/2026 STI testing add on (NG, CT, Trich) Pathology and Cytology Routine Cervical cancer screening Ordered: 01/25/2025 Pap Smear Pathology and Cytology Routine Cervical cancer screening Ordered: 01/25/2025 Bacterial Vaginosis Microbiology Routine Acute vaginitis Ordered: 01/25/2025 Scheduled Referrals Name Type Priority Associated Diagnoses Order Schedule Referral to Behavioral Health Psychiatry Outpatient Referral Routine Bipolar disorder, in partial remission, most recent episode mixed (CMS/HCC) Expected: 01/25/2025 (Approximate), Expires: 01/25/2026 documented as of this encounter Visit Diagnoses Diagnosis Cervical cancer screening- Primary Screening for malignant neoplasm of the cervix Sleep apnea, unspecified type Bipolar disorder, in partial remission, most recent episode mixed (CMS/HCC) Acute vaginitis Unspecified vaginitis and vulvovaginitis documented in this encounter Additional Health Concerns Assessment Noted Time PHQ-9 Depression Total Score: 11 025 1:24 PM EDT documented as of this encounter
[2025-01-25 14:30] LABS: Basophils Percent Auto 0.3 % (0-2); Eosinophils Absolute Auto 0.2 X10*3/uL (0.0-0.4); Eosinophils Percent Auto 1.6 % (0-4); Hematocrit 38.2 % (37.0-47.0); Imm Gran Abs Auto 0.09 X10*3/uL (0.00-0.03); Imm Gran Pct Auto 0.9 % (0.0-0.4); Lymphocytes Absolute Auto 2.2 X10*3/uL (1.2-4.9); Mean Corpuscular Hemoglobin 28.3 pg (27.0-33.0); Mean Platelet Volume 9.6 fL (9.4-12.3); Monocytes Absolute Auto 0.5 X10*3/uL (0.1-1.2); Monocytes Percent Auto 5.3 % (2-11); Neutrophils Absolute Auto 6.7 x10*3/uL (2.0-8.3); Neutrophils Percent Auto 68.9 % (45-73); Platelet Count 326 X10*3/uL (160-400); Red Cell Distribution Width 12.3 % (11.0-16.0); White Blood Count 9.7 X10*3/uL (4.8-10.8)
[2025-01-25 14:40] LABS: Estimated Average Glucose 105 mg/dL; Hemoglobin A1C 119.5878 umol/L; Hemoglobin A1c % 5.3 % (<6.0); Total Hemoglobin (HGBA1C) 3499.9793 umol/L
[2025-01-25 15:20] LABS: Alanine Aminotransferase 15 U/L (0-31); Albumin Level 3.9 g/dL (3.5-5.0); Alkaline Phosphatase 60 U/L (39-117); Anion Gap 10 (12-20); Aspartate Amino Transferase 19 U/L (5-31); Bilirubin Total 0.3 mg/dL (0.0-1.0); Blood Urea Nitrogen 14 mg/dL (9-16); Calcium 9.1 mg/dL (8.4-10.2); Carbon Dioxide 24 mmol/L (22-29); Chloride 108 mmol/L (96-108); Cholesterol 161 mg/dL (<200); Estimated Glomerular Filt Rate > 60; Glucose Random 94 mg/dL (60-115); HDL Cholesterol 29 mg/dL (>40); LDL Cholesterol Calculated 114 mg/dL (<100); Potassium 4.3 mmol/L (3.3-5.1); Sodium 138 mmol/L (135-145); Triglycerides 93 mg/dL (<150)
[2025-01-25 15:42] LABS: HCG Quantitative < 2 mIU/mL; TSH reflex Free T4 2.37 uIU/mL (0.32-4.0)
[2025-01-26 03:45] LABS: HIV AB/AG Nonreactive (Nonreactive); HIV Num 1 0.06 S/CO (0.00-0.99); ~HepC Num1 0.15 S/CO (0.00-0.79); ~Hepatitis C Antibody Nonreactive (Nonreactive)
[2025-01-26 07:58] LABS: Bacterial Vaginosis PCR NEGATIVE (Negative); Candida Group PCR NOT DETECTED (Not Detect); Candida glab krusei PCR NOT DETECTED (Not Detect); Trichomonas vaginalis PCR NOT DETECTED (Not Detect)
== END 2025-01-25 13:13 | disposition home or self-care (01) ==
LOC: HO.CHCLDS 13:12
PROVIDERS: Family Medicine; Visit Provider Internal Medicine
DX: Z00.00 Encounter for general adult medical examination without abnormal findings (principal); N76.0 Acute vaginitis; Z12.4 Encounter for screening for malignant neoplasm of cervix
CPT/HCPCS: 36415; 80053; 80061; 81515; 83036; 84443; 84702; 85025; 86803; 87389

== ENCOUNTER 2025-02-21 14:56 | Emergency (ER) | payer MEDICAID, SELFPAY ==
--- NOTE | ~2025-02-21 | XR_ITS ---
EXAMINATION: XR CHEST CLINICAL INFORMATION: cp COMPARISON: None available. TECHNIQUE: Frontal view of the chest was obtained. FINDINGS: Poor inspiration. No consolidation, pleural effusion or pneumothorax. Cardiomediastinal silhouette size is normal. Osseous structures are intact. Patient's large body habitus/obesity. XR/XR chest 1V IMPRESSION: No acute airspace disease. Normal chest x-ray. Electronically signed by: Daniele Garnica MD 02/21/2025 03:39 PM EDT
[2025-02-21 15:20] VITALS: BP 122/94; PULSE 92; O2SAT 97
[2025-02-21 15:21] VITALS: BP 125/81; PULSE 88; RESP 16; TEMP 36.8; O2SAT 97; BMI 41.2
--- NOTE | 2025-02-21 15:25 | ECG_ITS ---
Test Reason : CHEST PAIN Blood Pressure : */* mmHG Vent. Rate : 75 BPM Atrial Rate : 75 BPM P-R Int : 124 ms QRS Dur : 90 ms QT Int : 412 ms P-R-T Axes : 44 7 26 degrees QTcB Int : 460 ms Normal sinus rhythm Nonspecific T wave abnormality Prolonged QT Abnormal ECG No previous ECGs available Referred By: Guero Curiel Electronically Signed By: Jaret Leigh
--- NOTE | 2025-02-21 15:27 | PC.NURSE ---
pt on continuous observation via patient observer
--- NOTE | 2025-02-21 15:39 | ED_ITS ---
HPI - Chest Pain General Chief Complaint: Chest Pain Stated Complaint: CHEST PRESSURE W/EXERTION FROM [place] PER EMS Time Seen by Provider: 02/21/25 15:23 Source: patient and EMS Mode of arrival: EMS Limitations: no limitations History of Present Illness ED Provider: DR. Curiel HPI narrative: 24-year-old female history of anxiety and mental health issues patient came from [facility] under section 21 for further evaluation of chest pain more when she stand up, patient with known history of anxiety taking propanolol for controlling anxiety symptoms has not taking propranolol for sometimes. No recent travel, no recent prolonged immobilization, no lower extremity swelling or edema, no shortness of breath, currently no chest pain. Related Data Allergies Allergy/AdvReac Type Severity Reaction Status Date / Time No Known Allergies Allergy Verified 02/21/25 15:24 Review of Systems Review of Systems: All other systems are reviewed and are negative Constitutional: Reports as per HPI and Reports no additional constitutional complaints Eyes: Reports as per HPI and Reports no additional eye complaints Reports system reviewed and no additional complaints, except as documented Cardiovascular: Reports as per HPI and Reports no additional cardiovascular complaints Respiratory: Reports as per HPI and Reports no additional respiratory complaints Gastrointestinal: Reports as per HPI and Reports no additional gastrointestinal complaints Genitourinary: Reports no additional female genitourinary complaints Musculoskeletal: Reports no additional musculoskeletal complaints Skin/Breast: Reports system reviewed and no additional complaints, except as docu Psychiatric: Reports no additional psychiatric complaints Endocrine: Reports no additional endocrine complaints Hematologic/Lymphatic: Reports no additional hematologic/lymphatic complaints Allergic/Immunologic: Reports no additional allergic/immunologic complaints Reports system reviewed and no additional complaints, except as documented and Reports Abnormal speech present [facility] Social History Social History Smoked in Last 30 Days: No Use of substances other than those prescribed or required for medical reasons: No Patient : No Physical Exam Vital Signs: Vital Signs: Last Vital Signs Temp 98.2 F 02/21/25 15:21 Pulse 88 02/21/25 15:21 Resp 16 02/21/25 15:21 BP 125/81 02/21/25 15:21 Pulse Ox 97 02/21/25 15:21 O2 Del Method Room Air 02/21/25 15:21 BMI result Body Mass Index 41.2 Vital signs have been reviewed and appear to be correct. Blood pressure elevated. Heart rate normal. Respiratory rate normal. Temperature normal. Oxygen saturation normal. Appearance: Alert. Oriented X3. No acute distress. Head: Normal external exam. Normocephalic. Atraumatic. No Javed signs noted. No raccoon eyes noted Eyes: PERRLA. EOMI. Conjunctiva and sclera normal. Eyelids normal. ENT: TM's Normal. Pharynx normal. Uvula midline. Moist mucous membranes. No trismus noted. No drooling noted. No muffled voice noted. Neck: Normal inspection. Neck supple. FROM. No adenopathy. Thyroid Normal. No meningeal signs. No neck mass noted. CVS: Normal heart rate and rhythm. Heart sound normal. No murmurs noted. Pulses normal throughout. Respiratory: No respiratory distress. Painless inspiration. Breath sounds normal. No wheezes/rales/rhonchi noted. Chest nontender. No accessory muscle usage noted or decreased air movement noted. Abdomen: Soft and nontender. Bowel sounds normal in all 4 quadrants. No distention noted. No organomegaly noted. No visible injury noted. Back: No CVA tenderness. Full range of motion noted. Skin: Skin warm and dry. Normal skin color. Normal skin turgor. No rashes/lesions/lacerations noted. Extremities: No lower extremity edema. Extremities exhibit normal range of motion. Extremities nontender. Neuro: Oriented X 3. Cranial nerve exam: II-XII are grossly intact No motor deficit. No sensory deficit. Reflexes normal. Course Reevaluation(s) Reevaluation #1: Anxiety, on propanolol that she is not taking currently, negative cardiac workup for chest pain today. Reassure and discharge patient in the process of changing PCP will see her new PCP this week. Time: 18:00 Medical Decision Making Differential Diagnosis Differential Diagnoses: The differential diagnosis associated with the presentation includes ( anxiety, ACS, pneumonia, pneumothorax, pleural effusion, palpitation.) Admission/Observation Consideration of admission/observation: Escalation of care including admission/observation considered Lab Data MDM Lab Attestation statement: I reviewed the patient's lab results. Independent Interpretation I performed an independent interpretation of an: EKG and Plain X-Ray ( Chest: No acute intrathoracic pathology.) Radiology Impression Discussion of test interpretation with radiology: I have reviewed the radiologist's reading. Discharge Plan Discharge Clinical Impression: Atypical chest pain, Anxiety Patient Disposition: Xfer SNF Transfer Details: Meagan Bradley Instructions: Anxiety (ED) Print Language: Nigerien
[2025-02-21 16:00] LABS: MANUAL DIFF FLAG NO
[2025-02-21 16:01] LABS: Basophils Absolute Auto 0.1 X10*3/uL (0.0-0.2); Basophils Percent Auto 0.5 % (0-2); Eosinophils Absolute Auto 0.2 X10*3/uL (0.0-0.4); Hematocrit 37.7 % (37.0-47.0); Imm Gran Abs Auto 0.03 X10*3/uL (0.00-0.03); Imm Gran Pct Auto 0.3 % (0.0-0.4); Lymphocytes Absolute Auto 2.7 X10*3/uL (1.2-4.9); Lymphocytes Percent Auto 26.4 % (20-40); Mean Corpuscular HGB Conc 34.5 g/dl (31.0-35.0); Mean Corpuscular Hemoglobin 28.4 pg (27.0-33.0); Mean Corpuscular Volume 82.5 fL (80.0-98.0); Mean Platelet Volume 9.2 fL (9.4-12.3); Monocytes Absolute Auto 0.7 X10*3/uL (0.1-1.2); Monocytes Percent Auto 6.4 % (2-11); Neutrophils Absolute Auto 6.6 x10*3/uL (2.0-8.3); Neutrophils Percent Auto 64.4 % (45-73); Platelet Count 306 X10*3/uL (160-400); Red Blood Count 4.57 X10*6/uL (4.20-5.50); Red Cell Distribution Width 12.1 % (11.0-16.0); White Blood Count 10.2 X10*3/uL (4.8-10.8)
[2025-02-21 16:21] LABS: Anion Gap 9 (12-20); Blood Urea Nitrogen 16 mg/dL (9-16); Calcium 8.9 mg/dL (8.4-10.2); Carbon Dioxide 24 mmol/L (22-29); Chloride 111 mmol/L (96-108); Creatinine Clr Calc Pharmacy 153.3; Estimated Glomerular Filt Rate > 60; Glucose Random 103 mg/dL (60-115); Lipase 32 U/L (8-78); Potassium 4.3 mmol/L (3.3-5.1); Sodium 140 mmol/L (135-145)
[2025-02-21 16:26] LABS: B Type Natriuretic Peptide < 10 pg/mL (<100)
[2025-02-21 16:28] LABS: Troponin-I High Sensitivity < 2.7 ng/L (<3.5-17.0)
--- OUTSIDE RECORDS SUMMARY | 2025-02-21 17:52 | XMS_ITS | Clinical Summary ---
Author Organization [employer] Address [address] [place] [address] Care Team Providers Care Program And Research Coordinator Name Role Phone Brittni Vargas MD Primary Care Provider [phone] Ajit Dueñas Unavailable Unavailable Allergies Active Allergy Reactions Criticality Noted Date [...] Once per day. 90 tablet 01/12/20 25 026 Active ketoconazole (NIZOral) 2 % cream Apply 1 Application. topically Once per day. Active drospirenone-e thinyl estradiol (Alejandrina, Gianvi) 3-0.02 MG tablet Take 1 tablet by mouth Once per day. 28 tablet 3 01/12/20 25 026 Active albuterol (Ventolin HFA) 108 (90 Base) MCG/ACT inhaler INHALE 2 PUFFS EVERY 6 HOURS IF NEEDED FOR WHEEZING. 18 g 5 02/22/20 25 Active albuterol 108 (90 Base) MCG/ACT inhaler Inhale 2 puffs every 6 (six) hours if needed for wheezing. 18 g 01/12/20 25 025 Discontinued metroNIDAZOLE (Flagyl) 500 MG tablet Take 1 tablet (500 mg) by mouth 2 times daily for 7 days. 14 tablet 01/26/20 25 025 Active Problems Problem Noted Date Diagnosed Date Sleep apnea 01/25/2025 Assessment & Plan (01/25/2025 12:00 PM EDT): Patient reports was diagnosed with sleep apnea a couple of years ago in [place], reports she does not have supplies, no [...] Last pcp visit 6 months ago ER: [facility] fall[facility] 2024 @ [place] Hospitalizations: mental health 2023 Pmhx: autism, bipolar [...] organization. Date Type Department Care Team Description 02/19/2025 Refill [facility] [address] [facility] [place] [address] Neville Barbosa MD 02/18/2025 Patient Outreach [facility] () Department [address] [place] [address] [phone] Ajit Dueñas 02/18/2025 Results Follow-Up [facility] [address] [place] [address] Neville Barbosa MD CBC auto differential, hCG, Total, Quantitative, Hemoglobin A1c, Additional followed-up results: 5 02/17/2025 [facility] Outreach [facility] Department [address] [place] [address] Ajit Dueñas 02/17/2025 Patient Outreach [facility] () Department [address] [place] [address] Ajit Dueñas 02/17/2025 Patient Outreach [facility] () Department [address] [place] [address] Ajit Dueñas 02/17/2025 Patient Outreach [facility] Care [facility] () Department [address] [place] [address] Ajit Dueñas 02/17/2025 Patient Outreach [facility] Care [facility] () Department [address] [place] [address] Ajit Dueñas 02/17/2025 Patient Outreach [facility] [address] [place] [address] Brittni Vargas MD Transition Of Care (Tcm) (Psychotherap[y/psyc hiatry visit) 02/17/2025 Patient Outreach [facility] Care [facility] () Department [address] [place] [address] Ajit Dueñas 02/17/2025 Patient Outreach [facility] () Department [address] [place] [address] Ajit Dueñas 02/17/2025 Patient Outreach [facility] () Department [address] [place] [address] Ajit Dueñas 02/17/2025 [facility] Outreach [facility] [address] [place] [address] Ajit Dueñas 02/17/2025 [facility] Outreach [facility] () Department [address] [place] [address] [phone] Ajit Dueñas 02/14/2025 Travel 02/10/2025 Telephone [facility] [address] [place] [address] Lizbeth Bender LPN 02/10/2025 Patient Outreach [facility] [address], [place] [phone] Reid Cerna MD Pre-visit Planning (SDOH screening negative and Tobacco screening negative) 01/25/2025 11:00 AM EDT Procedure Visit [facility] [address] [place] [address] Brittni Vargas MD Cervical cancer screening (Primary Dx); Sleep apnea, unspecified type; Bipolar disorder, in partial remission, most recent episode mixed (CMS/HCC); Acute vaginitis 01/25/2025 Telephone [facility] [address] [place] [address] Brittni Vargas MD 01/25/2025 Travel 01/20/2025 Population Health Risk Score [facility] [address] [place] [address] [phone] Provider, Population Health Generic 01/11/2025 1:00 PM EDT Telemedicine [facility] [address] [place] [address] Neville Barbosa MD Encounter for medical examination [...] Questionnaire Data Not on file 0 01/25/2025 Housing Stability Answer Date Recorded What is your housing situation today? I have cyrus bearden 02/10/[address] you li ve. Do you have problems with any of the following? None of the above 02/10/2025 Food Insecurity Answer Date Recorded Within the past 12 months, y ou worried that your food would run out before you got money to buy more: Never True 02/10/2025 Within the past 12 months,th e food you bought just didn't last and you didn't have enough money to get more: Never True 01/2025 Transportation Answer Date Recorded In the past 12 months, has l ack of transportation kept you from medical appts, meetings, work or from getting things needed for daily living? No 02/10/2025 Utilities Answer Date Recorded In the past 12 months, has t he electric, gas, oil or water company threatened to shut off services in your home? No 02/10/2025 Depression Answer Date Recorded Patient Health Questionnaire-2 Score 6 01/25/2025 Internet Access Answer Date Recorded Internet Access Q1 Yes 02/10/2025 Internet Access Q2 Not on file 02/10/2025 Comments Unknown Sex and Gender Information Value Date Recorded Sex Assigned at Female 01/07/2025 3:10 PM EDT Legal Sex Female 3:10 PM EDT Gender Identity Female 01/10/2025 2:25 PM EDT Sexual Orientation Bisexual 01/28/2025 3: 57 PM EDT Last Filed Vital Signs Vital [...] 01/25/2025 11:26 AM EDT Plan of Treatment Health Maintenance Due Date Last Done Comments Alcohol/Substance Use Screening 2010 Family Planning (PISQ) 2013 HPV Vaccines (1 - 3-dose series) 2013 DTaP/Tdap/Td Vaccines (1 - Tdap) 2017 Hepatitis B Vaccines (1 of 3 - 19+ 3-dose series) 2017 COVID-19 Vaccine ( - 2023-2 5 season) 2024 Influenza Vaccine (Season Ended) 2025 Depression Monitoring 07/28/2025 01/25/2025 , 01/25/2025 Tobacco Screening 01/25/2026 01/25/2025 SDOH Screening 02/10/2026 02/10/2025 Disability Screening 02/14/2026 02/14/2025 Pap Smear 01/26/2028 01/25/2025 Lipid Panel 01/25/2030 01/25/2025 Zoster Vaccines [...] Years) and At-Risk Patients (6 to 49) Years Aged Out No longer eligible b ased [...] Encounter for medical examination to establish care PAP SMEAR Routine 01/25/2025 1:09 PM EDT Cervical cancer screening CHLAMYDIA/N. GONORRHOEAE AND T. VAGINALIS RNA, QUAL,TMA Routine 01/25/2025 1:09 PM EDT Cervical cancer screening BACTERIAL VAGINOSIS PANEL Routine 01/25/2025 12:00 AM EDT Acute vaginitis from Last 3 Months Results * TSH W/Reflex to FT4 (01/25/2025 1:22 PM EDT) TSH reflex Free T4 2.37 0.32 - 4.0 uIU/mL [facility] Blood Venous blood specimen / Unknown 01/25/2025 1:22 PM EDT 01/25/2025 2:14 PM EDT us Neville Monteiro MD LAB BLOOD ORDERABL ES Final Result [facility] [address] [place] [phone] [phone] * (ABNORMAL) CBC auto differential (01/25/2025 1:22 PM EDT) White Blood Count 9.7 4.8 - 10.8 X10*3/uL [facility] Red Blood Count 4.60 4.20 - 5.50 X10*6/uL [facility] Hemoglobin 13.0 12.0 - 16.0 g/dl [facility] Hematocrit 38.2 37.0 - 47.0 % [facility] Mean Corpuscular Volume 83.0 80.0 - 98.0 fL [facility] Mean Corpuscular Hemoglobin 28.3 27.0 - 33.0 pg [facility] Mean Corpuscular HGB Conc 34.0 31.0 - 35.0 g/dl [facility] Red Cell Distribution Width 12.3 11.0 - 16.0 % [facility] Platelet Count 326 160 - 400 X10*3/uL [facility] Mean Platelet Volume 9.6 9.4 - 12.3 fL [facility] Neutrophils Percent Auto 68.9 45 - 73 % [facility] Imm Gran Pct Auto 0.9(H) 0.0 - 0.4 % [facility] Lymphocytes Percent Auto 23.0 20 - 40 % [facility] Monocytes Percent Auto 5.3 2 - 11 % [facility] Eosinophils Percent Auto 1.6 0 - 4 % [facility] Basophils Percent Auto 0.3 0 - 2 % [facility] NRBC Pct Auto 0.0 0.0 - 0.2 /100WBC [facility] Neutrophils Absolute Auto 6.7 2.0 - 8.3 x10*3/uL [facility] Imm Gran Abs Auto 0.09(H) 0.00 - 0.03 X10*3/uL [facility] Lymphocytes Absolute Auto 2.2 1.2 - 4.9 X10*3/uL [facility] Monocytes Absolute Auto 0.5 0.1 - 1.2 X10*3/uL [facility] Eosinophils Absolute Auto 0.2 0.0 - 0.4 X10*3/uL [facility] Basophils Absolute Auto 0.0 0.0 - 0.2 X10*3/uL [facility] NRBC Abs Auto 0.000 0.0 - 0.012 X10*3/uL [facility] Blood Venous blood specimen / Unknown 01/25/2025 1:22 PM EDT 01/25/2025 2:17 PM EDT Neville Monteiro MD LAB BLOOD ORDERABL ES Final Result Performing Organization Address [facility]/ZIP Co de Phone Number [facility] [address] [place] [phone] * Hepatitis C Antibody with Reflex to HCV, RNA, Quantitative, Real-Time PCR (01/25/2025 1:22 PM EDT) Hepatitis C Antibody Nonreactive Nonreactive [facility] Comment:Antibodies to HCV no t detected; does not exclude early acuteHCV infection. Blood Venous blood specimen / Unknown 01/25/2025 1:22 PM EDT 01/25/2025 2:14 PM EDT us Neville Monteiro MD LAB BLOOD ORDERABL ES Final Result Performing Organization Address [facility]/ZIP Co de Phone Number [facility] [address] [place] [phone] [phone] * HIV-1/2 Antigen and Antibodies, Fourth Generation, with Reflexes (01/25/2025 1:22 PM EDT) HIV AB/AG Nonreactive Nonreactive [facility] Comment:HIV-1 p24 Ag and/or HIV-1/HIV-2 Ab not detected.A test result that is nonreactive does not exclude thepossibility of exposure to or infection with HIV-1 and/orHIV-2. Nonreactive results in this assay for individualswith prior exposure to HIV-1 and/or HIV-2 may be due toantigen and antibody levels that are below the limit ofdetection of this assay.The [employer] HIV Ag/Ab Combo assay result andsupplemental assay results should be interpreted inconjunction with the patient's clinical presentation,history and other laboratory results. If the results areinconsistent with clinical evidence, additional testing issuggested to confirm the result. Blood Venous blood specimen / Unknown 01/25/2025 1:22 PM EDT 01/25/2025 2:14 PM EDT us Neville Monteiro MD LAB BLOOD ORDERABL ES Final Result [facility] [address] [place] [phone] * hCG, Total, Quantitative (01/25/2025 1:22 PM EDT) HCG Quantitative <2 mIU/mL [facility] Comment:Weeks post LMP Appro ximate hCG(Last Menstrual Period) Range (mIU/ml)3 - 4 weeks 9 - 1304 - 5 weeks 75 - 2,6005 - 6 weeks 850 - 20,8006 - 7 weeks 4000 - 100,2007 - 12 weeks 11,500 - 289,36508 - 16 weeks 18,300 - 137,31346 - 29 weeks (2nd trimester) 1,400 - 53,13530 - 41 weeks (3rd trimester) 940 - [...] ORDERABL ES Final Result Performing Organization Address [facility] Co de Phone Number [facility] [address] [place] [phone] * Hemoglobin A1c (01/25/2025 1:22 PM EDT) Hemoglobin A1c 5.3 <6.0 % [facility] Comment:Hemoglobin A1C Refer ence Range Adults: 4.8 - 6.0 % Non diabetic: < 6.0 % Goal: < 7.0 %Additional Action Suggested: > 8.0 %Note: Hemoglobin A1c results are invalid for patients with abnormal amounts of HbF. Blood transfusions may impact the HbA1c concentration in the patient sample. Estimated Average Glucose 105 mg/dL [facility] Comment:eAG = Estimated ave rage glucose which is %A1C expressed asaverage glucose, using the formula of the Q2L-TkfmchlDostwcp Glucose study (ADAG), Diabetes Care, Vol.31,#8,Apr. 2007 Blood Venous blood specimen / Unknown 01/25/2025 1:22 PM EDT 01/25/2025 2:17 PM EDT us Neville Monteiro MD LAB BLOOD ORDERABL ES Final Result Performing Organization Address [facility]/ZIP Co de Phone Number [facility] [address] [place] [phone] * (ABNORMAL) Lipid Panel, Standard (01/25/2025 1:22 PM EDT) Triglycerides 93 <150 mg/dL [facility] Comment:Desirable Triglyceri de: less than 150 mg/dLBorderline High Triglyceride 150-199 mg/dLHigh Triglyceride: 200-499 mg/dLVery High Triglyceride: greater than or equal to 5OO mg/dL Cholesterol 161 <200 mg/dL [facility] Comment:Desirable Cholestero l: less than 200 mg/dLBorderline High Cholesterol: 200-239 mg/dLHigh Cholesterol: greater than 239 mg/dL LDL Cholesterol Calculated 114(H) <100 mg/dL [facility] Comment:Desirable LDL: less than 100 mg/dLNear Optimal/Above Optimal LDL: 110- 129 mg/dLBorderline High LDL: 130-159 mg/dLHigh LDL: 160-189 mg/dLVery High LDL: greater than or equal to 190 mg/dL HDL Cholesterol 29(L) >40 mg/dL [facility] Comment:Desirable HDL: great er than 40 mg/dL Note: This HDL assay may give artificially low results in patients with liver disease. Blood Venous blood specimen / Unknown 01/25/2025 1:22 PM EDT 01/25/2025 2:14 PM EDT us Neville Monteiro MD LAB BLOOD ORDERABL ES Final Result [facility] [address] [place] [phone] * (ABNORMAL) Comprehensive Metabolic Panel (01/25/2025 1:22 PM EDT) Sodium 138 135 - 145 mmol/L [facility] Potassium 4.3 3.3 - 5.1 mmol/L [facility] Chloride 108 96 - 108 mmol/L [facility] Carbon Dioxide 24 22 - 29 mmol/L [facility] Anion Gap 10(L) 12 - 20 [facility] Urea Nitrogen (BUN) 14 9 - 16 mg/dL [facility] Creatinine, Serum 0.72 0.5 - 1.4 mg/dL [facility] Estimated Glomerular Filt Rate >60 [facility] Comment:Chronic Kidney Disea se: Estimated GFR < 60 mL/min/1.04m9Mfxwit Kidney Disease: Estimated GFR < 15 mL/min/1.73m2 Glucose 94 60 - 115 mg/dL [facility] Calcium 9.1 8.4 - 10.2 mg/dL [facility] Bilirubin, Total 0.3 0.0 - 1.0 mg/dL [facility] Aspartate Amino Transferase 19 5 - 31 U/L [facility] Alanine Aminotransferase 15 0 - 31 U/L [facility] Total Protein 7.0 6.5 - 8.0 g/dL [facility] Albumin Level 3.9 3.5 - 5.0 g/dL [facility] Alkaline Phosphatase 60 39 - 117 U/L [facility] Blood Venous blood specimen / Unknown 01/25/2025 1:22 PM EDT 01/25/2025 2:14 PM EDT us Neville Monteiro MD LAB BLOOD ORDERABL ES Final Result Performing Organization Address [facility]/ZIP Co de Phone Number [facility] [address] [place] [phone] * STI testing add on (NG, CT, Trich) (01/25/2025 1:09 PM EDT) Trichomonas (NAAT) NOT DETECTED NOT DETECTED [facility] Comment:The analytical perfo rmance characteristics of thisassay have been determined by [employer]. Themodifications have not been cleared or approved bythe FDA. This assay has been validated pursuant to theIA regulations and is used for clinical purposes.For additional information, please refer tohttp://education.scanR/faq/Trichomonastma(This link is being provided for information/educational purposes only.)THIS TEST WAS PERFORMED AT:[facility] [place] [phone] ESPARZA MD CTNG Ref Lab NOT DETECTED NOT DETECTED [facility] NG Ref Lab NOT DETECTED NOT DETECTED [facility] ThinPrep?? vial Cervix uteri structure / Unknown 01/25/2025 1:09 PM EDT 01/26/2025 9:30 AM EDT us Brittni Vargas MD LAB CYTOLOGY ORDERABLES Final Result Performing Organization Address City/[facility]/ZIP Co de Phone Number [facility] [address] [place] [phone] * Pap Smear (01/25/2025 1:09 PM EDT) Swab Cervical swab / Unknown 01/25/2025 1:09 PM EDT 01/26/2025 9:30 AM EDT [facility] - 01/28/2025 9:27 AM EDT ----- ------- Name: Silvia Parham ? Age/Sex: 24/F ? : 2000 Unit#: [id number] ?? Attend Dr: Brittni Vargas MD ?Re01/25/25 ?Status: DEP REF ? Location: HO.HHCLNP ? Disch: ? ----- ------- SPEC : [id number] ? RECD: 01/26/25-929 ? STATUS: ??SOUT ? REQ NUM: [id number] ? FABIANO: 01/25/25-1309 ? SUBM DR: Brittni Vargas MD ? ENTERED: ??01/26/25-1020 ?SP TYPE: Pap Smr ?OTHR : ? ORDERED: ??Pap Smear ? Interpretation ?? Satisfactory for evaluation. ?? Negative for intraepithelial lesion or malignancy. ?? Moderate inflammation. ?Clinical Information LMP: 01/02/2025 Previous PAP test: Unknown date/findings ? Material Received ?? ThinPrep-Cervical ----- ------- Signed (signature on file) OLGA Babin (ASCP) 01/28/2599 ? ----- ------- ? END OF REPORT ? Brittni Vargas MD LAB CYTOLOGY ORDERABLES Final Result Performing Organization Address [facility] Co de Phone Number [facility] [address] [place] [phone] * Bacterial Vaginosis (01/25/2025 12:00 AM EDT) TRICHOMONAS VAGINALIS DETECTION BY PCR NOT DETECTED Not Detect [facility] BACTERIAL VAGINOSIS DETECTION BY PCR NEGATIVE Negative [facility] Comment:The BV organism targ ets [...] DETECTION BY PCR NOT DETECTED Not Detect [facility] Quyen glab krusei PCR NOT DETECTED Not Detect [facility] Swab Vaginal structure / Unknown 01/25/2025 01/25/2025 Brittni Vargas MD LAB MICROBIOLOGY - GENERAL OR DERABLES Final Result Performing Organization Address [facility] Co de Phone Number [facility] [address] [place] [phone] from Last 3 Months Insurance [facility] C3 Care Teams Program And Research Coordinator Relationship Specialty Start Date End Date Brittni Vargas MD [address] [place] [address] PCP - General Family Medicine 02/21/25 Ajit Dueñas 02/17/25
[2025-02-21 17:53] VITALS: BP 128/76; PULSE 86; RESP 19; TEMP 36.7; O2SAT 98
[2025-02-21 19:07] LABS: Troponin-I High Sensitivity < 2.7 ng/L (<3.5-17.0)
--- NOTE | 2025-02-21 19:14 | PC.NURSE ---
assumed care of pt at 1900. report received from Leila BUSH.
--- NOTE | 2025-02-21 19:46 | PC.NURSE ---
attempted to call manoj vieira x 2 to give report over the phone prior to d/c but no answer on the phone
[2025-02-21 21:41] VITALS: BP 121/71; PULSE 80; RESP 16; TEMP 36.7; O2SAT 97
== END 2025-02-21 21:43 | disposition skilled nursing facility (03) ==
PROVIDERS: Emergency Provider Emergency Medicine; PCP Family Medicine
DX: R07.89 Other chest pain (principal); F41.9 Anxiety disorder, unspecified; Z79.899 Other long term (current) drug therapy
CPT/HCPCS: 36415; 71045; 80048; 83690; 83880; 84484; 85025; 93005; 99284

== ENCOUNTER → 2025-02-21 15:25 | Outpatient (BNV) | payer MEDICAID, SELFPAY | PROVIDERS: Emergency Provider Emergency Medicine; Visit Provider Radiology Diagnostic Radiology | DX: R07.9 Chest pain, unspecified (principal) | CPT/HCPCS: 71045 ==

== ENCOUNTER → 2025-02-21 15:25 | Outpatient (BNV) | payer MEDICAID, SELFPAY | PROVIDERS: Emergency Provider Emergency Medicine; PCP Family Medicine; Visit Provider Internal Medicine Cardiovascular Disease | DX: R94.31 Abnormal electrocardiogram [ECG] [EKG] (principal); R07.9 Chest pain, unspecified | CPT/HCPCS: 93010 ==

== ENCOUNTER 2025-03-21 13:06 | Outpatient (REF) | payer MEDICAID, SELFPAY ==
--- NOTE | ~2025-03-21 | XR_ITS ---
EXAMINATION: XR KNEE, RIGHT CLINICAL INFORMATION: right knee pain COMPARISON: None available. TECHNIQUE: Three views of the right knee. FINDINGS: There is no joint effusion. There is mild medial joint space narrowing. No fracture or deformity is identified. XR/XR knee RT 3V IMPRESSION: Mild nonspecific medial joint space narrowing. Electronically signed by: Luis Alberto Fields MD 03/21/2025 02:21 PM EDT
[2025-03-21 13:52] LABS: MANUAL DIFF FLAG NO
--- OUTSIDE RECORDS SUMMARY | 2025-03-21 14:07 | XMS_ITS | Clinical Summary ---
Author Organization [employer] Address [address] [place] [address] Care Team Providers Care Emergency Room Doctor Name Role Phone Brittni Vargas MD Primary Care Provider [phone] Allergies Active Allergy Reactions Criticality Noted Date Comments Juniper Berries Anaphylaxis High 01/11/2025 Medications * This document contains information received from the source organization and may not represent a complete record from that organization. methocarbamol (Robaxin) 750 MG tablet Take 750 mg by mouth if needed each day for muscle spasms. Active propranolol (Inderal) 20 MG tabletIndicatio ns:Anxiety Take 20 mg by mouth 2 times daily. Active traZODone (Desyrel) 100 MG tablet Take 200 mg by mouth at bedtime. Active montelukast (Singulair) 10 MG tablet Take 10 mg by mouth at bedtime. Active hydrOXYzine HCl (Atarax) 25 MG tablet Take 1 tablet (25 mg) by mouth every 8 (eight) hours if needed for anxiety. 90 tablet 3 01/12/20 25 026 Active ferrous gluconate (Fergon) 324 (38 Fe) MG tablet Take 1 tablet (324 mg) by mouth with breakfast. 90 tablet 01/12/20 25 Active amphetamine-dex troamphetamine XR (Adderall XR) 15 MG 24 hr [...] per day. 90 capsule 01/12/20 25 Active ketoconazole (NIZOral) 2 % cream Apply 1 Application. topically Once per day. Active drospirenone-et hinyl estradiol (Alejandrina, Gianvi) 3-0.02 MG tablet Take 1 tablet by mouth Once per day. 28 tablet 3 01/12/20 25 026 Active albuterol (Ventolin HFA) 108 (90 Base) MCG/ACT inhaler INHALE 2 PUFFS EVERY 6 HOURS IF NEEDED FOR WHEEZING. 18 g 5 02/22/20 25 Active pramipexole (Mirapex) 0.25 MG tablet TAKE 3 TABLETS BY MOUTH ONCE PER DAY. 90 tablet 2 02/26/20 25 Active Blood Pressure kitIndications: Elevated BP without diagnosis of hypertension To check the BP daily 1 kit 02/29/20 25 Active diclofenac (Voltaren) 75 MG EC tabletIndicatio ns:Chronic pain of right knee Take 1 tablet (75 mg) by mouth if needed in the morning and at bedtime (pain). Do not crush, chew, or split. 60 tablet 1 02/29/20 25 025 Active diclofenac (Voltaren) 75 MG EC tablet Take 75 mg by mouth if needed in the morning and at bedtime (pain). Do not crush, chew, or split. 025 Discontinued(Re order (will not trigger notification to Pharmacy)) hyoscyamine (Levsin) 0.125 MG/5ML elixir Take 125 mcg by mouth every 12 (twelve) hours if needed for bladder spasms. 025 Discontinued( erapy completed) pramipexole (Mirapex) 0.25 MG tablet Take 3 tablets (0.75 mg) by mouth Once per day. 90 tablet 01/12/20 25 025 Discontinued albuterol 108 (90 Base) MCG/ACT inhaler Inhale 2 puffs every 6 (six) hours if needed for wheezing. 18 g 01/12/20 25 025 Discontinued Active Problems Problem Noted Date Diagnosed Date Sleep apnea 01/25/2025 Assessment & Plan (01/25/2025 12:00 PM EDT): Patient reports was diagnosed with sleep apnea a couple of years ago in [place], reports she does not have supplies, no [...] Last pcp visit 6 months ago ER: [facility] 2024 @ [facility] Hospitalizations: mental health 2023 Pmhx: autism, bipolar [...] organization. Date Type Department Care Team Description 03/04/2025 Telephone [facility] MEDICINE [address] [place] [address] Brittni Vargas MD Letter for School/Work 03/01/2025 Patient Outreach [facility] ([facility]) Department [address] [place] [address] [phone] Ajit Dueñas 02/28/2025 11:15 AM EDT Office Visit [facility] MED [facility] PEDS [address] [place] [address] Misty Chapa MD Other chest pain (Primary Dx); Bipolar disorder, in partial remission, most recent episode mixed (CMS/HCC); Anxiety with depression; Dietary counseling; Exercise counseling; Class 3 severe obesity due to excess calories with serious comorbidity and body mass index (BMI) of 40.0 to 44.9 in adult; Chronic pain of right knee; Elevated BP without diagnosis of hypertension 02/28/2025 Travel 02/25/2025 Telephone [facility] MEDIC[facility] [address] [place] [address] Brittni Vargas MD Medication Question 02/25/2025 Results Follow-Up [facility] PEDS [address] [place] [address] Brittni Vargas MD STI testing add on (NG, CT, Trich), Pap Smear, Bacterial Vaginosis 02/24/2025 Refill [facility] [address] [place] [address] Neville Barbosa MD 02/23/2025 Patient Outreach [facility] ([facility]) Department [address] [place] [phone] Ajit Dueñas 02/22/2025 Telephone [facility] MED [facility] PED[facility] [address] [place] [address] Brittni Vargas MD Nurse Triage 02/21/2025 Orders Only GENERIC EXTERNAL DATA DEPARTMENT Provider, Generic External Data 02/19/2025 Refill [facility] [address] [place] [address] Neville Barbosa MD 02/18/2025 Patient Outreach [facility] ([facility]) Department [address] [phone] Ajit Dueñas 02/18/2025 Results Follow-Up [facility]EDS [address] [place] [address] Neville Barbosa MD CBC auto differential, hCG, Total, Quantitative, Hemoglobin A1c, Additional followed-up results: 5 02/17/2025 Patient Outreach [facility] ([facility] Department [address] [place] [address] Ajit Dueñas 02/17/2025 Patient Outreach [facility] ([facility] Department [address] [place] [address] Ajit Dueñas 02/17/2025 Patient Outreach [facility] ([facility] Department [address] [place] [address] Ajit Dueñas 02/17/2025 Patient Outreach [facility] ([facility] Department [address] [place] [address] Ajit Dueñas 02/17/2025 Patient Outreach [facility] ([facility] Department [address] [place] [address] Ajit Dueñas 02/17/2025 Patient Outreach [facility] [address] [place] [address] Brittni Vargas MD Transition Of Care (Tcm) (Psychotherap[y/psyc hiatry visit) 02/17/2025 Patient Outreach [facility] ([facility] Department [address] [place] [address] Ajit Dueñas 02/17/2025 Patient Outreach [facility] ([facility] Department [address] [place] [address] Ajit Dueñas 02/17/2025 Patient Outreach [facility] ([facility] Department [address] [place] [address] Ajit Dueñas 02/17/2025 Patient Outreach [facility] ([facility] Department [address] [place] [phone] Ajit Dueñas 02/17/2025 Patient Outreach [facility] () Department [address] [place] [phone] Ajit Dueñas 02/14/2025 Travel 02/10/2025 Telephone [facility] [address] [place] [address] Lizbeth Bender LPN 02/10/2025 Patient Outreach [facility] [address] [place] [address] Reid Cerna MD Pre-visit Planning (SDOH screening negative and Tobacco screening negative) 01/25/2025 11:00 AM EDT Procedure Visit [facility] [address] [place] [address] Brittni Vargas MD Cervical cancer screening (Primary Dx); Sleep apnea, unspecified type; Bipolar disorder, in partial remission, most recent episode mixed (CMS/HCC); Acute vaginitis 01/25/2025 Telephone [facility] [address] [place] [address] Brittni Vargas MD 01/25/2025 Travel 01/20/2025 Population Health Risk Score [facility] () Department [address] [place] [phone] Provider, Population Health Generic 01/11/2025 1:00 PM EDT Telemedicine [facility] [address] [place] [address] Neville Barbosa MD Encounter for medical examination [...] Sign Reading Time Taken Comments Blood Pressure 142/87 02/28/2025 10:40 AM EDT Pulse 76 02/28/2025 10:40 AM EDT Temperature 36.7 C (98.1 F) 02/28/2025 10:40 AM EDT Respiratory Rate 18 02/28/2025 10:40 AM EDT Oxygen Saturation 98% 02/28/2025 10:40 AM EDT Inhaled Oxygen Concentration - - Weight 115 kg (254 lb) 02/28/2025 10:40 AM EDT Height 165.1 cm (5' 5 ) 02/28/2025 10:40 AM EDT Body Mass Index 42.27 02/28/2025 10:40 AM EDT Plan of Treatment Upcoming Encounters Date Type Department Care Team (Late st Contact Info) Description 03/30/2025 2:45 PM EDT Clinical Support [facility] P[facility] [address] [place] [address] 04/11/2025 9:30 AM EDT Office Visit [facility] MED [facility] PED[facility] [address] [place] [address] Brittni Vargas MD [address] [place] [address] Health Maintenance Due Date Last Done Comments Alcohol/Substance Use Screening 2010 Family Planning (PISQ) 2013 HPV Vaccines (1 - 3-dose series) 2013 DTaP/Tdap/Td Vaccines (1 - Tdap) 2017 Hepatitis B Vaccines (1 of 3 - 19+ 3-dose series) 2017 COVID-19 Vaccine ( - 2023-2 5 season) 2024 Influenza Vaccine (#1) 2025 Depression Monitoring 07/28/2025 01/25/2025 , 01/25/2025 SDOH Screening 02/10/2026 02/10/2025 Disability Screening 02/14/2026 02/14/2025 Tobacco Screening 02/28/2026 02/28/2025 Pap Smear 01/26/2028 01/25/2025 Lipid Panel 01/25/2030 [...] Procedure Name Priority Date/Time Associated Diagnosis Comments HIGH SENSITIVITY TROPONIN I Routine 02/21/2025 6:35 PM EDT HEPATITIS C AB W/REFL TO HCV RNA, [...] vaginitis from Last 3 Months Results * High Sensitivity Troponin I (02/21/2025 6:35 PM EDT) TROPONIN I HIGH SENSITIVITY <2.7 <3.5 - 17.0 ng/L LABS Comment:The [facility] high sens itivity Troponin-I results should beused in conjunction with other diagnostic information suchas ECG, clinical observations and information, and patientsymptoms to aid in the diagnosis of [place]. 02/21/2025 6:35 PM EDT 02/21/2025 6:45 PM EDT us Generic External Data Provider LAB BLOOD ORDERAB LES Final Result Performing Organization Address [facility]/ZIP Co de Phone Number LABS [address] [place] [address] [phone] * TSH W/Reflex to FT4 (01/25/2025 1:22 PM EDT) Pathologist [facility] TSH reflex Free T4 2.37 0.32 - 4.0 uIU/mL LABS Blood Venous blood specimen / Unknown 01/25/2025 1:22 PM EDT 01/25/2025 2:14 PM EDT us Neville Monteiro MD LAB BLOOD ORDERABL ES Final Result Performing Organization Address [facility]/ZIP Co de Phone Number LABS [address] [place] [phone] * (ABNORMAL) CBC auto differential (01/25/2025 1:22 PM EDT) White Blood Count 9.7 4.8 - 10.8 X10*3/uL LABS Red Blood Count 4.60 4.20 - 5.50 X10*6/uL LABS Hemoglobin 13.0 12.0 - 16.0 g/dl LABS Hematocrit 38.2 37.0 - 47.0 % LABS Mean Corpuscular Volume 83.0 80.0 - 98.0 fL LABS Mean Corpuscular Hemoglobin 28.3 27.0 - 33.0 pg LABS Mean Corpuscular HGB Conc 34.0 31.0 - 35.0 g/dl LABS Red Cell Distribution Width 12.3 11.0 - 16.0 % LABS Platelet Count 326 160 - 400 X10*3/uL LABS Mean Platelet Volume 9.6 9.4 - 12.3 fL LABS Neutrophils Percent Auto 68.9 45 - 73 % LABS Imm Gran Pct Auto 0.9(H) 0.0 - 0.4 % LABS Lymphocytes Percent Auto 23.0 20 - 40 % LABS Monocytes Percent Auto 5.3 2 - 11 % LABS Eosinophils Percent Auto 1.6 0 - 4 % LABS Basophils Percent Auto 0.3 0 - 2 % LABS NRBC Pct Auto 0.0 0.0 - 0.2 /100WBC LABS Neutrophils Absolute Auto 6.7 2.0 - 8.3 x10*3/uL LABS Imm Gran Abs Auto 0.09(H) 0.00 - 0.03 X10*3/uL LABS Lymphocytes Absolute Auto 2.2 1.2 - 4.9 X10*3/uL LABS Monocytes Absolute Auto 0.5 0.1 - 1.2 X10*3/uL LABS Eosinophils Absolute Auto 0.2 0.0 - 0.4 X10*3/uL LABS Basophils Absolute Auto 0.0 0.0 - 0.2 X10*3/uL LABS NRBC Abs Auto 0.000 0.0 - 0.012 X10*3/uL LABS Blood Venous blood specimen / Unknown 01/25/2025 1:22 PM EDT 01/25/2025 2:17 PM EDT Neville Monteiro MD LAB BLOOD ORDERABL ES Final Result Performing Organization Address [facility] Co de Phone Number LABS [address] [place] [phone] * Hepatitis C Antibody with Reflex to HCV, RNA, Quantitative, Real-Time PCR (01/25/2025 1:22 PM EDT) Hepatitis C Antibody Nonreactive Nonreactive LABS Comment:Antibodies to HCV no t detected; does not exclude early acuteHCV infection. Blood Venous blood specimen / Unknown 01/25/2025 1:22 PM EDT 01/25/2025 2:14 PM EDT us Neville Monteiro MD LAB BLOOD ORDERABL ES Final Result Performing Organization Address [facility] de Phone Number LABS [address] [place] [address] [phone] * HIV-1/2 Antigen and Antibodies, Fourth Generation, with Reflexes (01/25/2025 1:22 PM EDT) HIV AB/AG Nonreactive Nonreactive [facility] LABS Comment:HIV-1 p24 Ag and/or HIV-1/HIV-2 Ab not detected.A test result that is nonreactive does not exclude thepossibility of exposure to or infection with HIV-1 and/orHIV-2. Nonreactive results in this assay for individualswith prior exposure to HIV-1 and/or HIV-2 may be due toantigen and antibody levels that are below the limit ofdetection of this assay.The [employer] HIV Ag/Ab Combo assay result andsupplemental assay results should be interpreted inconjunction with the patient's clinical presentation,history and other laboratory results. If the results areinconsistent with clinical evidence, additional testing issuggested to confirm the result. Blood Venous blood specimen / Unknown 01/25/2025 1:22 PM EDT 01/25/2025 2:14 PM EDT Neville Monteiro MD LAB BLOOD ORDERABL ES Final Result Performing Organization Address [facility] Co de Phone Number LABS [address] [place] [phone] * hCG, Total, Quantitative (01/25/2025 1:22 PM EDT) HCG Quantitative <2 mIU/mL [facility] LABS Comment:Weeks post LMP Appro ximate hCG(Last Menstrual Period) Range (mIU/ml)3 - 4 weeks 9 - 1304 - 5 weeks 75 - 2,6005 - 6 weeks 850 - 20,8006 - 7 weeks 4000 - 100,2007 - 12 weeks 11,500 - 289,99185 - 16 weeks 18,300 - 137,10093 - 29 weeks (2nd trimester) 1,400 - 53,11373 - 41 weeks (3rd trimester) 940 - [...] ORDERABL ES Final Result Performing Organization Address City/[facility]/ZIP Co de Phone Number LABS [address] [place] [address] [phone] * Hemoglobin A1c (01/25/2025 1:22 PM EDT) Hemoglobin A1c 5.3 <6.0 % [facility] LABS Comment:Hemoglobin A1C Refer ence Range Adults: 4.8 - 6.0 % Non diabetic: < 6.0 % Goal: < 7.0 %Additional Action Suggested: > 8.0 %Note: Hemoglobin A1c results are invalid for patients with abnormal amounts of HbF. Blood transfusions may impact the HbA1c concentration in the patient sample. Estimated Average Glucose 105 mg/dL LABS Comment:eAG = Estimated ave rage glucose which is %A1C expressed asaverage glucose, using the formula of the G4P-NkmfqhzQemytnm Glucose study (ADAG), Diabetes Care, Vol.31,#8,2007 Blood Venous blood specimen / Unknown 01/25/2025 1:22 PM EDT 01/25/2025 2:17 PM EDT us Neville Monteiro MD LAB BLOOD ORDERABL ES Final Result LABS [address] [place] [phone] * (ABNORMAL) Lipid Panel, Standard (01/25/2025 1:22 PM EDT) Triglycerides 93 <150 mg/dL [facility] LABS Comment:Desirable Triglyceri de: less than 150 mg/dLBorderline High Triglyceride 150-199 mg/dLHigh Triglyceride: 200-499 mg/dLVery High Triglyceride: greater than or equal to 5OO mg/dL Cholesterol 161 <200 mg/dL LABS Comment:Desirable Cholestero l: less than 200 mg/dLBorderline High Cholesterol: 200-239 mg/dLHigh Cholesterol: greater than 239 mg/dL LDL Cholesterol Calculated 114(H) <100 mg/dL LABS Comment:Desirable LDL: less than 100 mg/dLNear Optimal/Above Optimal LDL: 110- 129 mg/dLBorderline High LDL: 130-159 mg/dLHigh LDL: 160-189 mg/dLVery High LDL: greater than or equal to 190 mg/dL HDL Cholesterol 29(L) >40 mg/dL [facility] LABS Comment:Desirable HDL: great er than 40 mg/dL Note: This HDL assay may give artificially low results in patients with liver disease. Blood Venous blood specimen / Unknown 01/25/2025 1:22 PM EDT 01/25/2025 2:14 PM EDT us Neville Monteiro MD LAB BLOOD ORDERABL ES Final Result LABS [address] [place] [phone] * (ABNORMAL) Comprehensive Metabolic Panel (01/25/2025 1:22 PM EDT) Sodium 138 135 - 145 mmol/L LABS Potassium 4.3 3.3 - 5.1 mmol/L LABS Chloride 108 96 - 108 mmol/L LABS Carbon Dioxide 24 22 - 29 mmol/L LABS Anion Gap 10(L) 12 - 20 LABS Urea Nitrogen (BUN) 14 9 - 16 mg/dL LABS Creatinine, Serum 0.72 0.5 - 1.4 mg/dL LABS Estimated Glomerular Filt Rate >60 LABS Comment:Chronic Kidney Disea se: Estimated GFR < 60 mL/min/1.86b2Trqaam Kidney Disease: Estimated GFR < 15 mL/min/1.73m2 Glucose 94 60 - 115 mg/dL LABS Calcium 9.1 8.4 - 10.2 mg/dL LABS Bilirubin, Total 0.3 0.0 - 1.0 mg/dL LABS Aspartate Amino Transferase 19 5 - 31 U/L LABS Alanine Aminotransferase 15 0 - 31 U/L LABS Total Protein 7.0 6.5 - 8.0 g/dL LABS Albumin Level 3.9 3.5 - 5.0 g/dL LABS Alkaline Phosphatase 60 39 - 117 U/L LABS Blood Venous blood specimen / Unknown 01/25/2025 1:22 PM EDT 01/25/2025 2:14 PM EDT Neville Monteiro MD LAB BLOOD ORDERABL ES Final Result Performing Organization Address [facility] de Phone Number LABS [address] [place] [phone] * STI testing add on (NG, CT, Trich) (01/25/2025 1:09 PM EDT) Trichomonas (NAAT) NOT DETECTED NOT DETECTED LABS Comment:The analytical perfo rmance characteristics of thisassay have been determined by [employer]. Themodifications have not been cleared or approved bythe FDA. This assay has been validated pursuant to theCLIA regulations and is used for clinical purposes.For additional information, please refer [email or web address](This link is being provided for information/educational purposes only.)THIS TEST WAS PERFORMED AT:[facility] [place] [phone] ESPARZA MD CTNG Ref Lab NOT DETECTED NOT DETECTED LABS NG Ref Lab NOT DETECTED NOT DETECTED LABS ThinPrep vial Cervix uteri structure / Unknown 01/25/2025 1:09 PM EDT 01/26/2025 9:30 AM EDT us Brittni Vargas MD LAB CYTOLOGY ORDERABLES Final Result Performing Organization Address [facility] Co de Phone Number LABS [address] [place] [phone] * Pap Smear (01/25/2025 1:09 PM EDT) Swab Cervical swab / Unknown 01/25/2025 1:09 PM EDT 01/26/2025 9:30 AM EDT Narrative LABS - 01/28/2025 9:27 AM EDT ----- ------- Name: Silvia Parham Age/Sex: 24/F : 2000 Unit#: [id number] Attend Dr: Brittni Vargas MD Re01/25/25 [address]: ----- ------- SPEC : [id number] RECD: 01/26/25 STATUS: JULI REBlair NUM: [id number] FABIANO: 01/25/25-1308 [facility] DR: Brittni Vargas MD ENTERED: 01/26/25-1021 SP TYPE: Pap Smr [facility] DR: ORDERED: Pap Smear Interpretation Satisfactory for evaluation. Negative for intraepithelial lesion or malignancy. Moderate inflammation. Clinical Information LMP: 01/02/2025 Previous PAP test: Unknown date/findings Material Received ThinPrep-Cervical ----- ------- Signed (signature on file) OLGA Babin (ASCP) 01/28/25 [id number] ----- ------- END OF REPORT Brittni Vargas MD LAB CYTOLOGY ORDERABLES Final Result Performing Organization Address [facility] de Phone Number LABS [address] [place] [phone] * Bacterial Vaginosis (01/25/2025 12:00 AM EDT) TRICHOMONAS VAGINALIS DETECTION BY PCR NOT DETECTED Not Detect LABS BACTERIAL VAGINOSIS DETECTION BY PCR NEGATIVE Negative LABS Comment:The BV organism targ ets of [...] DETECTION BY PCR NOT DETECTED Not Detect LABS Quyen glab krusei PCR NOT DETECTED Not Detect LABS Swab Vaginal structure / Unknown 01/25/2025 01/25/2025 Brittni Vargas MD LAB MICROBIOLOGY - GENERAL OR DERABLES Final Result Performing Organization Address [facility] de Phone Number LABS [address] [place] [address] [phone] from Last 3 Months Insurance [facility] C3 Care Teams Emergency Room Doctor Relationship Specialty Start Date End Date Brittni Vargas MD [address] [place] [phone] PCP - General Family Medicine 02/21/25
--- OUTSIDE RECORDS SUMMARY | 2025-03-21 14:08 | XMS_ITS | Clinical Summary ---
Author Organization 175 [facility] Address [address] [place] [address] Phone Care Team Providers Care Office Assistant Name Role Phone Neville Barbosa Primary Care Provide r Allergies Active Allergy Reactions Criticality Noted Date Comments Adhesive Rash 02/15/2025 Medications ferrous gluconate (FERGON) 324 mg (38 mg iron) tablet Take 1 tablet (324 mg total) by mouth daily. 01/11/2025 Active FLUoxetine (PROzac) 20 mg capsule Take 2 capsules (40 mg total) by mouth daily. 01/11/2025 Active methocarbamoL (ROBAXIN) 750 mg tablet Take 1 tablet (750 mg total) by mouth. Active hydrOXYzine HCL (ATARAX) 25 mg tablet take 1 tablet (25 mg) by mouth every 8 (eight) hours if needed for anxiety. Active haloperidoL (HALDOL) 1 mg tablet Take 1 tablet (1 mg total) by mouth. at bedtime. Active Caridad, 28, 3-0.02 mg per tablet Take 1 tablet by mouth 1 (one) time each day. Active pramipexole (MIRAPEX) 0.25 mg tablet take 3 tablets by mouth once per day. Active traZODone (DESYREL) 100 mg tablet Take 2 tablets (200 mg total) by mouth. Active montelukast (SINGULAIR) 10 mg tablet Take 1 tablet (10 mg total) by mouth at bedtime. Active Encounters Date Type Department Care Team Description 02/16/2025 Lab Requisition [facility] - Main Lab [address] [facility] [place] [address] Teodora Fernandes NP Other intermission coordinator (current) drug therapy 02/16/2025 Lab Requisition [facility] - Main Lab [address] [facility] [place] [phone] Teodora Fernandes NP Other longterm (current) drug therapy 02/14/2025 8:37 PM EDT - 02/15/2025 6:08 PM EDT Emergency [facility] Emergency [address] [place] [phone] Ammon Blake MD Cauchon, Matthew C, Suicidal ideation (Primary Dx) Discharge Disposition: Short Term Hospital from Last 3 Months Medical History Medical History Date Comments Autism Adhd Borderline personality disorder (CMS/HCC V24, CM S/HCC V28) Social History Tobacco Use Types Packs/Day Years Used Date Smoking Tobacco: Never Assessed Comments Unknown Sex and Gender Information Value Date Recorded Sex Assigned at Not on file Legal Sex Female 8:45 AM EDT Gender Identity Not on file Sexual Orientation Not on file Obstetrics History Last Filed Vital Signs Vital Sign Reading Time Taken Comments Blood Pressure 127/74 02/15/2025 3:59 PM EDT Pulse 75 02/15/2025 3:59 PM EDT Temperature 36.8 C (98.2 F) 02/15/2025 3:59 PM EDT Respiratory Rate 18 02/15/2025 3:59 PM EDT Oxygen Saturation 98% 02/15/2025 3:59 PM EDT Inhaled Oxygen Concentration - - Weight 115 kg (253 lb) 02/14/2025 9:02 PM EDT Height 162.6 cm (5' 4 ) 02/14/2025 9:02 PM EDT Body Mass Index 43.43 02/14/2025 9:02 PM EDT Plan of Treatment Upcoming Encounters Date Type Department Care Team (Late st Contact Info) Description 04/13/2025 3:00 PM EDT Consult Orthopedic Surgery - [place] [address] [phone] Enrrique Herman DPM [address] [address] Health Maintenance Due Date Last Done Comments HPV Vaccines (1 - 3-dose series) 2013 DTaP,Tdap,and Td Vaccines (1 - Tdap) 2017 Hepatitis B Vaccines (1 of 3 - 19+ 3-dose series) 2017 COVID-19 Vaccine (1 - 2023-2 5 season) 2024 Social Influencers of Health Screening 01/17/2025 Influenza Vaccine (#1) 2025 Depression Screening 01/25/2026 01/25/2025 Cervical Cancer Screening: P ap Smear 01/26/2028 01/25/2025 Cholesterol Screening (Lipid Panel) 02/16/2030 02/16/2025, 01/25/2025 HIV Screening Completed 01/25/2025 Hepatitis C Screening Completed 01/25/2025 HIB Vaccines Aged Out No longer eligi ble based on patient's age to complete this topic Hepatitis A Vaccines Aged Out No long er eligible based on patient's age to complete this topic IPV Vaccines Aged Out No longer eligi ble based on patient's age to complete this topic MMR Vaccines Aged Out No longer eligi ble based on patient's age to complete this topic Meningococcal ACWY Vaccine Aged Out N o longer eligible based on patient's age to complete this topic Meningococcal B Vaccine Aged Out No l onger eligible based on patient's age to complete this topic Pneumococcal Vaccine: Pediatrics (0 to 5 Years) and At-Risk Patients (6 to 49 Years) Aged Out No longer eligible b ased on patient's age to complete this topic RSV Immunization Patients Under 20 months Aged Out No longer eligible b ased on patient's age to complete this topic Varicella Vaccines Aged Out No longer eligible based on patient's age to complete this topic Procedures Procedure Name Priority Date/Time Associated Diagnosis Comments LIPID PANEL WITH REFLEX TO DIRECT LDL Routine 02/16/2025 7:00 AM EDT Other intermission coordinator (current) drug therapy GLUCOSE, RANDOM Routine 02/16/2025 7:00 AM EDT Other longterm (current) drug therapy HEMOGLOBIN A1C Routine 02/16/2025 7:00 AM EDT Other intermission coordinator (current) drug therapy CBC WITH AUTO DIFFERENTIAL STAT 02/14/2025 8:57 PM EDT METHADONE SCREEN, URINE STAT 02/14/2025 8:57 PM EDT PHENCYCLIDINE, URINE STAT 02/14/2025 8:57 PM EDT BUPRENORPHINE SCREEN, URINE STAT 02/14/2025 8:57 PM EDT DRUG ABUSE SCREEN 8A PANEL, URINE STAT 02/14/2025 8:57 PM EDT SALICYLATE LEVEL STAT 02/14/2025 8:57 PM EDT ACETAMINOPHEN LEVEL STAT 02/14/2025 8 :57 PM EDT ETHANOL STAT 02/14/2025 8:57 PM EDT COMPREHENSIVE METABOLIC PANEL STAT 02/14/2025 8:57 PM EDT CBC AND DIFFERENTIAL STAT 02/14/2025 8:57 PM EDT from Last 3 Months Results * (ABNORMAL) Lipid panel with reflex to direct LDL (02/16/2025 7:00 AM EDT) Cholesterol 144 0 - 200 mg/dL LAB CHEMISTRY METHOD 02/16/2025 12:14 PM EDT [facility] Triglycerides 130 0 - 150 mg/dL LAB CHEMISTRY METHOD 02/16/2025 12:14 PM EDT [facility] HDL 34(L) >=40 mg/dL LAB CHEMISTRY METHOD 02/16/2025 12:14 PM EDT [facility] LDL Calculated 84 0 - 100 mg/dL LAB CHEMISTRY METHOD 02/16/2025 12:14 PM EDT [facility] VLDL Cholesterol Pedro 26 mg/dL LAB CHEMISTRY METHOD 02/16/2025 12:14 PM EDT [facility] Non HDL Chol. (LDL+VLDL) 110 <145 mg/dL LAB CHEMISTRY METHOD 02/16/2025 12:14 PM EDT [facility] Chol/HDL Ratio 4.2 0.0 - 4.4 LAB CHEMISTRY METHOD 02/16/2025 12:14 PM EDT [facility] Blood Venous blood specimen / Unknown Venipuncture / Unknown 02/16/2025 7:00 AM EDT 02/16/2025 10:36 AM EDT [facility] BLOOD ORDERABLES Final Resu lt Performing Organization Address City/[facility]/ZIP Co de Phone Number [facility] [address] [place] [address], [place] [phone] * Hemoglobin A1c (02/16/2025 7:00 AM EDT) Hemoglobin A1C 5.5 <6.5 % LAB CHEMISTRY METHOD 02/16/2025 8:46 PM EDT [facility] Mean Bld Glu Estim. 111 mg/dL LAB CHEMISTRY METHOD 02/16/2025 8:46 PM EDT [facility] Blood Venous blood specimen / Unknown Venipuncture / Unknown 02/16/2025 7:00 AM EDT 02/16/2025 10:[address] [facility] LAB BLOOD ORDERABLES Final Resu lt [facility] [address] [place] [address], [place] [phone] * Glucose, random (02/16/2025 7:00 AM EDT) Glucose 90 70 - 100 mg/dL LAB CHEMISTRY METHOD 02/16/2025 12:26 PM EDT [facility] Blood Venous blood specimen / Unknown Venipuncture / Unknown 02/16/2025 7:00 AM EDT 02/16/2025 10:36 AM EDT us Teodora Fernandes [employer] LAB BLOOD ORDERABLES Final Resu lt [facility] [address] [place] [address], * Drug abuse screen 8a panel, urine (02/14/2025 8:57 PM EDT) [facility] Signature Amphetamine Screen, Ur Negative Negative LAB CHEMISTRY METHOD 02/14/2025 9:44 PM EDT [facility] Comment:Certain OTC medicati ons containing ephedrine, phenylephrine, pseudoephedrine and phenylpropanolamine can cause false positive results. Barbiturate Screen, Ur Negative Negative LAB CHEMISTRY METHOD 02/14/2025 9:44 PM EDT [facility] Benzodiazepine Screen, Ur Negative Negative LAB CHEMISTRY METHOD 02/14/2025 9:44 PM EDT [facility] Cocaine Screen, Ur Negative Negative LAB CHEMISTRY METHOD 02/14/2025 9:44 PM EDT [facility] Opiate Screen, Ur Negative Negative LAB CHEMISTRY METHOD 02/14/2025 9:44 PM EDT [facility] Cannabinoid (THC) Screen, Ur Negative Negative LAB CHEMISTRY METHOD 02/14/2025 9:44 PM EDT [facility] Comment:Specimens from patie nts taking pantoprazole sodium (Protonix) have been shown to produce false positive results. Oxycodone Screen, Ur Negative Negative LAB CHEMISTRY METHOD 02/14/2025 9:44 PM EDT [facility] Fentanyl, Ur Negative Negative LAB CHEMISTRY METHOD 02/14/2025 9:44 PM EDT [facility] Urine Urine specimen obtained by clean catch procedure / Unknown Non-blood Collection / Unknown 02/14/2025 8:57 PM EDT 02/14/2025 9:12 PM EDT Narrative [facility] - 02/14/2025 9:44 PM EDT Assay cutoffs: Amphetamines 1000 ng/mL Barbiturates 200 ng/mL Benzodiazepines 200 ng/mL Cocaine 300 ng/mL Fentanyl 1 ng/mL Opiates 300 ng/mL Oxycodone 100 ng/mL THC 50 ng/mL Semi-quantitative assay for screening purposes only. Unconfirmed screening result should not be used for non-medical purposes. *ALTERNATE METHOD CONFIRMATION DONE UPON REQUEST ONLY* [facility] URINE ORDERABLES Dian l Result Performing Organization Address [facility]/ZIP Co de Phone Number [facility] [address] [place] [address], [place] [phone] * Buprenorphine screen, urine (02/14/2025 8:57 PM EDT) Buprenorphine Screen Urine Negative Negative LAB CHEMISTRY METHOD 02/14/2025 9:44 PM EDT [facility] Urine Urine specimen obtained by clean catch procedure / Unknown Non-blood Collection / Unknown 02/14/2025 8:57 PM EDT 02/14/2025 9:12 PM EDT [facility] - 02/14/2025 9:44 PM EDT Assay cutoff 5 ng/mL Semi-quantitative assay for screening purposes only. Unconfirmed screening result should not be used for non-medical purposes. *ALTERNATE METHOD CONFIRMATION DONE UPON REQUEST ONLY* [facility] LAB URINE ORDERABLES Dian l Result Performing Organization Address [facility]/ZIP Co de Phone Number [facility] [address] [place] [address], [place] [phone] * Methadone, urine (02/14/2025 8:57 PM EDT) Methadone Screen, Urine Negative Negative LAB CHEMISTRY METHOD 02/14/2025 9:44 PM EDT [facility] Comment: Assay cutoff 300 ng/mL Semi-quantitative assay for screening purposes only. Unconfirmed screening result should not be used for non-medical purposes. *ALTERNATE METHOD CONFIRMATION DONE UPON REQUEST ONLY* Urine Urine specimen obtained by clean catch procedure / Unknown Non-blood Collection / Unknown 02/14/2025 8:57 PM EDT 02/14/2025 9:12 PM EDT us Hedy Brooks DO LAB URINE ORDERABLES Dian l Result [facility] [address] [place] [address], [place] [phone] * CBC auto differential (02/14/2025 8:57 PM EDT) WBC 10.6 4.8 - 10.8 K/mcL LAB HEMETOLOGY METHOD 02/14/2025 9:21 PM EDT [facility] RBC 4.50 3.80 - 4.80 M/mcL LAB HEMETOLOGY METHOD 02/14/2025 9:21 PM EDT [facility] Hemoglobin 12.7 11.5 - 16.0 g/dL LAB HEMETOLOGY METHOD 02/14/2025 9:21 PM EDT [facility] Hematocrit 38.8 35.0 - 47.0 % LAB HEMETOLOGY METHOD 02/14/2025 9:21 PM EDT [facility] MCV 86.2 79.0 - 98.0 FL LAB HEMETOLOGY METHOD 02/14/2025 9:21 PM EDT [facility] MCH 28.2 27.0 - 32.0 pcg LAB HEMETOLOGY METHOD 02/14/2025 9:21 PM EDT [facility] MCHC 32.7 32.0 - 37.0 g/dL LAB HEMETOLOGY METHOD 02/14/2025 9:21 PM EDT [facility] RDW 12.2 11.0 - 15.0 % LAB HEMETOLOGY METHOD 02/14/2025 9:21 PM [facility] Platelets 330 130 - 400 K/mcL LAB HEMETOLOGY METHOD 02/14/2025 9:21 PM [facility] MPV 9.4 7.0 - 11.0 FL LAB HEMETOLOGY METHOD 02/14/2025 9:21 PM [facility] NRBC 0.0 <1.0 % LAB HEMETOLOGY METHOD 02/14/2025 9:21 PM [facility] NRBC Absolute 0.00 <0.10 K/mcL LAB HEMETOLOGY METHOD 02/14/2025 9:21 PM [facility] Neutrophils Relative 64.6 % LAB HEMETOLOGY METHOD 02/14/2025 9:21 PM [facility] Lymphocytes Relative 28.6 % LAB HEMETOLOGY METHOD 02/14/2025 9:21 PM [facility] Monocytes Relative 5.1 % LAB HEMETOLOGY METHOD 02/14/2025 9:21 PM [facility] Eosinophils Relative 1.2 % LAB HEMETOLOGY METHOD 02/14/2025 9:21 PM [facility] Basophils Relative 0.3 % LAB HEMETOLOGY METHOD 02/14/2025 9:21 PM [facility] Immature Granulocytes Relative 0.2 % LAB HEMETOLOGY METHOD 02/14/2025 9:21 PM [facility] Neutrophils Absolute 6.85 1.50 - 7.00 K/mcL LAB HEMETOLOGY METHOD 02/14/2025 9:21 PM [facility] Lymphocytes Absolute 3.03 1.00 - 5.00 K/mcL LAB HEMETOLOGY METHOD 02/14/2025 9:21 PM [facility] Monocytes Absolute 0.54 0.20 - 1.00 K/mcL LAB HEMETOLOGY METHOD 02/14/2025 9:21 PM EDT [facility] Eosinophils Absolute 0.13 0.00 - 0.50 K/[facility] LAB HEMETOLOGY METHOD 02/14/2025 9:21 PM EDT [facility] Basophils Absolute 0.03 0.00 - 0.20 K/[facility] LAB HEMETOLOGY METHOD 02/14/2025 9:21 PM EDT [facility] Immature Granulocytes Absolute 0.02 0.00 - 0.03 K/[facility] LAB HEMETOLOGY METHOD 02/14/2025 9:21 PM EDT [facility] Blood Venous blood specimen / Unknown Venipuncture / Unknown 02/14/2025 8:57 PM EDT 02/14/2025 9:12 PM EDT [employer] [facility] LAB BLOOD ORDERABLES Dian l Result Performing Organization Address [facility]/ZIP Co de Phone Number [facility] [address] [place] [address], [place] [phone] * Phencyclidine, urine (02/14/2025 8:57 PM EDT) PCP Scrn, Ur Negative Negative LAB CHEMISTRY METHOD 02/14/2025 9:44 PM EDT [facility] Comment: Assay cutoff 25 ng/mL Semi-quantitative assay for screening purposes only. Unconfirmed screening result should not be used for non-medical purposes. *ALTERNATE METHOD CONFIRMATION DONE UPON REQUEST ONLY* Urine Urine specimen obtained by clean catch procedure / Unknown Non-blood Collection / Unknown 02/14/2025 8:57 PM EDT 02/14/2025 9:12 PM EDT [employer] LAB URINE ORDERABLES Dian l Result Performing Organization Address [facility]/ZIP Co de Phone Number [facility] [address] [place] [address], [place] [phone] * Ethanol (02/14/2025 8:57 PM EDT) Ethanol Level <3 0 - 10 mg/dL LAB CHEMISTRY METHOD 02/14/2025 9:43 PM EDT [facility] Blood Venous blood specimen / Unknown Venipuncture / Unknown 02/14/2025 8:57 PM EDT 02/14/2025 9:12 PM EDT Hedy Brooks LAB BLOOD ORDERABLES Dian l Result Performing Organization Address [facility]/ZIP Co de Phone Number [facility] [address] [place] [address], [place] [phone] * (ABNORMAL) Acetaminophen level (02/14/2025 8:57 PM EDT) Acetaminophen Level <2.0(L) 10.0 - 30.0 mcg/mL LAB CHEMISTRY METHOD 02/14/2025 9:42 PM EDT [facility] Blood Venous blood specimen / Unknown Venipuncture / Unknown 02/14/2025 8:57 PM EDT 02/14/2025 9:12 PM EDT Hedy Brooks LAB BLOOD ORDERABLES Dian l Result Performing Organization Address [facility]/ZIP Co de Phone Number [facility] [address] [place] [address], [place] [phone] * (ABNORMAL) Salicylate level (02/14/2025 8:57 PM EDT) Salicylate Level <1.7(L) 2.0 - 29.0 mg/dL LAB CHEMISTRY METHOD 02/14/2025 9:42 PM EDT [facility] Blood Venous blood specimen / Unknown Venipuncture / Unknown 02/14/2025 8:57 PM EDT 02/14/2025 9:12 PM EDT us Hedy Brooks DO LAB BLOOD ORDERABLES Dian l Result [facility] [address] [place] [address], * (ABNORMAL) Comprehensive metabolic panel (02/14/2025 8:57 PM EDT) Sodium 139 133 - 145 mmol/L LAB CHEMISTRY METHOD 02/14/2025 9:42 PM EDT [facility] Potassium 4.1 3.5 - 5.5 mmol/L LAB CHEMISTRY METHOD 02/14/2025 9:42 PM [facility] Chloride 111(H) 96 - 110 mmol/L LAB CHEMISTRY METHOD 02/14/2025 9:42 PM [facility] CO2 22 21 - 32 mmol/L LAB CHEMISTRY METHOD 02/14/2025 9:42 PM [facility] Anion Gap 6 3 - 11 LAB CHEMISTRY METHOD 02/14/2025 9:42 PM [facility] Glucose 122(H) 70 - 100 mg/dL LAB CHEMISTRY METHOD 02/14/2025 9:42 PM [facility] BUN 17 5 - 25 mg/dL LAB CHEMISTRY METHOD 02/14/2025 9:42 PM [facility] Creatinine 0.82 0.50 - 1.10 mg/dL LAB CHEMISTRY METHOD 02/14/2025 9:42 PM [facility] eGFR 101 >=60 mL/min/1. 73m2 LAB CHEMISTRY METHOD 02/14/2025 9:42 PM [facility] Comment:Calculation based on the Chronic Kidney Disease Epidemiology Collaboration (CKD-EPI) equation refit without adjustment for race. BUN/Creatinine Ratio 20.7 LAB CHEMISTRY METHOD 02/14/2025 9:42 PM [facility] Calcium 8.8 8.5 - 10.5 mg/dL LAB CHEMISTRY METHOD 02/14/2025 9:42 PM EDT [facility] AST (SGOT) 17 10 - 42 unit/L LAB CHEMISTRY METHOD 02/14/2025 9:42 PM EDT [facility] ALT (SGPT) 31 10 - 60 unit/L LAB CHEMISTRY METHOD 02/14/2025 9:42 PM EDT [facility] Alkaline Phosphatase 60 42 - 121 unit/L LAB CHEMISTRY METHOD 02/14/2025 9:42 PM EDT [facility] Total Protein 6.7 6.0 - 8.0 g/dL LAB CHEMISTRY METHOD 02/14/2025 9:42 PM EDT [facility] Albumin 3.2 3.2 - 5.0 g/dL LAB CHEMISTRY METHOD 02/14/2025 9:42 PM EDT [facility] Total Bilirubin 0.3 0.0 - 1.4 mg/dL LAB CHEMISTRY METHOD 02/14/2025 9:42 PM EDT [facility] Blood Venous blood specimen / Unknown Venipuncture / Unknown 02/14/2025 8:57 PM EDT 02/14/2025 9:12 PM EDT us Hedy Brooks DO LAB BLOOD ORDERABLES Dian l Result [facility] [address] [place] [address], from Last 3 Months Insurance MEDICAID - [place] Care Teams Office Assistant Relationship Specialty Start Date End Date Neville Barbosa [address] [place] [id number] PCP - General Internal Medicine 01/17/25
[2025-03-21 14:09] LABS: Hematocrit 38.5 % (37.0-47.0); Hemoglobin 12.9 g/dl (12.0-16.0); Imm Gran Abs Auto 0.02 X10*3/uL (0.00-0.03); Imm Gran Pct Auto 0.2 % (0.0-0.4); Lymphocytes Absolute Auto 2.9 X10*3/uL (1.2-4.9); Mean Corpuscular HGB Conc 33.5 g/dl (31.0-35.0); Mean Corpuscular Hemoglobin 28.1 pg (27.0-33.0); Mean Corpuscular Volume 83.9 fL (80.0-98.0); NRBC Abs Auto 0.000 X10*3/uL (0.0-0.012); NRBC Pct Auto 0.0 /100WBC (0.0-0.2); Platelet Count 312 X10*3/uL (160-400); Red Blood Count 4.59 X10*6/uL (4.20-5.50); White Blood Count 9.2 X10*3/uL (4.8-10.8)
[2025-03-21 17:30] LABS: Alanine Aminotransferase 27 U/L (0-31); Albumin Level 3.8 g/dL (3.5-5.0); Alkaline Phosphatase 57 U/L (39-117); Anion Gap 11 (12-20); Aspartate Amino Transferase 27 U/L (5-31); Blood Urea Nitrogen 9 mg/dL (9-16); Calcium 8.9 mg/dL (8.4-10.2); Carbon Dioxide 22 mmol/L (22-29); Chloride 111 mmol/L (96-108); Estimated Glomerular Filt Rate > 60; Potassium 3.9 mmol/L (3.3-5.1); Sodium 140 mmol/L (135-145); Total Protein 6.7 g/dL (6.5-8.0)
== END 2025-03-21 13:07 | disposition home or self-care (01) ==
LOC: HO.XRAY 13:06
PROVIDERS: Referring Provider Family Medicine; Visit Provider Internal Medicine
DX: R03.0 Elevated blood-pressure reading, without diagnosis of hypertension (principal); M25.561 Pain in right knee; G89.29 Other chronic pain
CPT/HCPCS: 36415; 73562; 80053; 85025

== ENCOUNTER → 2025-03-21 13:46 | Outpatient (BNV) | payer MEDICAID, SELFPAY | PROVIDERS: Referring Provider Family Medicine; Visit Provider Radiology Diagnostic Radiology | DX: M25.561 Pain in right knee (principal) | CPT/HCPCS: 73562 ==

== ENCOUNTER 2025-05-30 10:13 | Emergency (ER) | payer MEDICAID, SELFPAY ==
--- OUTSIDE RECORDS SUMMARY | 2025-05-30 09:40 | XMS_ITS | Encounter Summary ---
Author Organization [employer] Address [address] [place] [address] Care Team Providers Care Male Impersonator Name Role Phone Brittni Vargas MD Primary Care Provider [phone] Reason for Visit * Reason Comments Headache Encounter Details Date Type Department Care Team ([facility] Contact Info) Description 05/30/2025 9:40 AM EDT Office Visit [facility] [address] [place] [address] Iqra Mars MD [address] [place] [address] Other migraine with status migrainosus, not intractable (Primary Dx); Dehydration Social History Tobacco Use Types Packs/Day Years [...] Orientation Bisexual 01/28/2025 3: 57 PM EDT documented as of this encounter Last Filed Vital Signs Vital Sign Reading Time Taken Comments Blood Pressure 140/93 05/30/2025 9:14 AM EDT Pulse 80 05/30/2025 9:14 AM EDT Temperature 36.8 C (98.3 F) 05/30/2025 9:14 AM EDT Respiratory Rate 18 05/30/2025 9:14 AM EDT Oxygen Saturation 99% 05/30/2025 9:14 AM EDT Inhaled Oxygen Concentration - - Weight 113 kg (249 lb) 05/30/2025 9:14 AM EDT Height - - Body Mass Index 41.99 04/11/2025 9:04 AM EDT documented in this encounter Progress Notes * Iqra Mars MD - 05/30/2025 9:40 AM EDT Subjective Patient ID: Silvia Parham is a 25 y.o. female who presents for Headache. Headache This is a new problem. The current episode started yesterday. The problem occurs constantly. The problem has been gradually worsening. The pain is located in the Frontal and occipital region. The pain does not radiate. The pain quality is similar to prior headaches. The quality of the pain is described as aching, throbbing and band-like. The pain is at a severity of 9/10. The pain is severe. Associated symptoms include dizziness, photophobia and scalp tenderness. Pertinent negatives include no blurred vision, neck pain, seizures, sinus pressure, sore throat, swollen glands, tingling, tinnitus, visual change, vomiting, weakness or weight loss. She has tried Excedrin for the symptoms. The treatment provided no relief. Her past medical history is significant for migraine headaches. Review of Systems Constitutional: Negative. Negative for weight loss. HENT: Negative for sinus pressure, sore throat and tinnitus. Eyes: Positive for photophobia. Negative for blurred vision. Respiratory: Negative. Negative for shortness of breath. Cardiovascular: Negative for chest pain and palpitations. Gastrointestinal: Negative. Negative for vomiting. Genitourinary: Negative. Musculoskeletal: Negative for neck pain. Neurological: Positive for dizziness and headaches. Negative for tingling, seizures and weakness. Objective Physical Exam Constitutional: Appearance: She is ill-appearing. Cardiovascular: Rate and Rhythm: Normal rate and regular rhythm. Pulmonary: Effort: Pulmonary effort is normal. Breath sounds: Normal breath sounds. Assessment/Plan Diagnoses and all orders for this visit: Other migraine with status migrainosus, not intractable Comments: Pt given ibuprofen 800 in the office Orders: - ibuprofen tablet 800 mg Dehydration Comments: Pt has not had any urine output since yesterday Pt sent to [facility] via ambulance for fluid management * Miranda Lujan RN - 05/30/2025 9:40 AM EDT Ambulance called for transport to ED. Security and Walk In Team aware. documented in this encounter Plan of Treatment Upcoming Encounters Date Type Department Care Team (Late st Contact Info) Description 06/29/2025 9:15 AM EDT Office Visit [facility] CHC MED & PEDS [address] [place] [address] Brittni Vargas MD [address] [place] [address] 07/19/2025 1:45 PM EST Office Visit [facility] OPTOMETRY [address] [place] [address] Peggy Connor, OD [address] [place] [address] documented as of this encounter Visit Diagnoses Diagnosis Other migraine with status migrainosus, not intractable- Primary Dehydration documented in this encounter Administered Medications Inactive Administered Medications - up to 3 most recent administrations Medication Order MAR Action Action Date Dose Rate Site ibuprofen tablet 800 mg 800 mg, Oral, Once, On Fri05/30/25 at 0945, For 1 doseIndications:Other migraine with status migrainosus, not intractable Given 05/30/2025 9:48 AM EDT 800 mg documented in this encounter Additional Health Concerns Assessment Noted Time PHQ-9 Depression Total Score: 11 025 1:24 PM EDT documented as of this encounter Care Teams Male Impersonator Relationship Specialty Start Date End Date Brittni Vargas MD [address] [place] [address] PCP - General Family Medicine 04/11/25 documented as of this encounter
[2025-05-30 10:22] VITALS: BP 131/83; BP 138/80; PULSE 64; PULSE 68; RESP 16; TEMP 36.9; O2SAT 98; O2SAT 99; BMI 42.5
[2025-05-30 10:29] VITALS: BP 131/83; PULSE 64; RESP 16; TEMP 36.9; O2SAT 98
--- NOTE | 2025-05-30 10:33 | PC.NURSE ---
Patient presents to ED c/o urinary retention with foul odor urine. Patient did urinate small amount today. No distention noted, non tender on palpation. Denies discharge. Patient also c/o headache 7/10 painful behind eyes, hx of tension headaches. Patient received 800mg of ibuprofen at urgent care this AM. Denies vision changes and SOB VSS lights dimmed for comfort Provider in to see patient Plan of care on going
--- NOTE | 2025-05-30 10:39 | ED_ITS ---
HPI - Female Genitourinary General Chief complaint: Urogenital-Female Stated complaint: UNABLE TO URINATE,GRADY PER EMS Time Seen by Provider: 05/30/25 10:25 Source: patient and EMS Mode of arrival: EMS Limitations: no limitations History of Present Illness ED Provider: HPI Narrative: 25-year-old woman with a history of tension headaches, ADHD, states she has episodes of prefrontal headaches last time was in September in [place] when this happens sometimes she has decreased appetite and does not drink fluids and the headache gets worse and sometimes she goes to the ER and headaches improve with IV fluids. This episode started 3 days ago in the progressively gotten worse she has been using ibuprofen without much response. No no visual changes no fever or chills no weakness in upper or lower extremities reported Related Data Previous Rx's ?Medication ?Instructions ?Recorded propranolol 10 mg tablet 10 mg PO BID #14 tabs Allergies Allergy/AdvReac Type Severity Reaction Status Date / Time No Known Allergies Allergy Verified 05/30/25 10:24 Review of Systems 2 Constitutional: Constitutional: Reports as per [facility] Social History Social History Smoked in Last 30 Days: No Use of substances other than those prescribed or required for medical reasons: No Advance Directives: No Advance Directives Information Provided: No Do you have a plan to hurt others: No Plan Patient : No Physical Exam 2 Vital Signs: Vital Signs: Last Vital Signs Temp 97.9 F 05/30/25 12:26 Pulse 64 05/30/25 12:26 Resp 17 05/30/25 12:26 BP 133/88 05/30/25 12:26 Pulse Ox 100 05/30/25 12:26 O2 Del Method Room Air 05/30/25 12:26 BMI result Body Mass Index 42.5 Const: Other: * Gen: ?Overall well-appearing patient * HEENT: Dry oral mucosa, pupils 3 mm reactive bilaterally * Neck: Supple, no LAD * CV: RRR, no obvious murmurs appreciated * Resp: ?No wheezing rales rhonchi no stridor moving air well * Abd: Obese,?Bowel sounds are present, no tenderness no rebound no rigidity * MSK: FROM, strength 5/5 all extremities * Skin: Warm, dry, intact, * Neuro: ?Alert and oriented x3, moving upper and lower extremities symmetrically, no obvious facial asymmetry noted Medications Administered Discontinued Medications Generic Name Dose Route Start Last Admin Trade Name Prasanth PRN Reason Stop Dose Admin Sodium Chloride 1,000 mls @ 999 mls/hr 05/30/25 10:45 05/30/25 12:03 Ns IV 05/30/25 11:45 Infused .Q1H1M FUAD Infusion Acetaminophen 1,000 mg in 100 mls @ 400 mls/hr 05/30/25 10:45 05/30/25 11:16 Ofirmev IV 05/30/25 10:59 Infused ONCE ONE Infusion Medical Decision Making Medical Decision Making MDM Narrative: 10:48 AM 05/30/2025 (Dr. Thiago Barbosa): No red flags for encephalitis or meningitis such as fevers, no meningismus on exam, nothing to suspect cavernous venous thrombosis, subarachnoid hemorrhage, we will check blood work for dehydration provide fluids and medications for pain disposition to be determined. 1:08 PM 05/30/2025 (Dr. Thiago Barbosa): Patient re-evaluated, discussed workup with her, she states she still has some symptoms but ready for discharge, her blood work as I discussed with the is reassuring Differential Diagnosis Differential Diagnoses: The differential diagnosis associated with the presentation includes (Subarachnoid hemorrhage, cavernous venous thrombosis, acute angle closure glaucoma, temporal arteritis, meningitis, migraine headache, tension headache) Admission/Observation Consideration of admission/observation: Escalation of care including admission/observation considered Lab Data [facility] Lab Attestation statement: I reviewed the patient's lab results. 05/30/25 10:57 05/30/25 10:57 Labs: Lab Results 05/30/25 Range/Units 10:57 WBC 10.2 (4.8-10.8) X10*3/uL RBC 4.57 (4.20-5.50) X10*6/uL Hgb 13.2 (12.0-16.0) g/dl Hct 37.6 (37.0-47.0) % MCV 82.3 (80.0-98.0) fL MCH 28.9 (27.0-33.0) pg MCHC 35.1 H (31.0-35.0) g/dl RDW 11.9 (11.0-16.0) % Plt Count 326 (160-400) X10*3/uL MPV 9.4 (9.4-12.3) fL Immature Gran % (Auto) 0.3 (0.0-0.4) % Neut % (Auto) 75.5 H (45-73) % Lymph % (Auto) 18.6 L (20-40) % Rhea % (Auto) 4.4 (2-11) % Eos % (Auto) 0.9 (0-4) % Baso % (Auto) 0.3 (0-2) % Lymph # (Auto) 1.9 (1.2-4.9) X10*3/uL Rhea # (Auto) 0.5 (0.1-1.2) X10*3/uL Eos # (Auto) 0.1 (0.0-0.4) X10*3/uL Baso # (Auto) 0.0 (0.0-0.2) X10*3/uL Abs Immat Gran (auto) 0.03 (0.00-0.03) X10*3/uL Absolute Neuts (auto) 7.7 (2.0-8.3) x10*3/uL Absolute Nucleated RBC 0.000 (0.0-0.012) X10*3/uL Nucleated RBC % (auto) 0.0 (0.0-0.2) /100WBC Sodium 137 (135-145) mmol/L Potassium 4.2 (3.3-5.1) mmol/L Chloride 107 (96-108) mmol/L Carbon Dioxide 24 (22-29) mmol/L Anion Gap 10 L (12-20) BUN 16 (9-16) mg/dL Creatinine 0.64 (0.5-1.4) mg/dL Estim Creat Clear Calc 162.0 Estimated GFR > 60 Random Glucose 109 (60-115) mg/dL Calcium 8.9 (8.4-10.2) mg/dL Beta HCG, Quant < 2 mIU/mL Tests considered The following testing was considered but not selected: CT brain Prescription Management I considered prescription management with: Pain Medication Discharge Plan Discharge Clinical Impression: Bad headache Patient Disposition: Home, Self-Care Additional Instructions: As discussed avoid screen time as much as possible, stay well hydrated, Tylenol 975 mg or ibuprofen 400 mg every 6 hours needed for pain, do not need to use more than 400 mg of ibuprofen at a time, follow up with the PCP, your blood work has been reassuring, there was no evidence for dehydration Prescriptions: No Action propranolol 10 mg tablet 10 mg PO BID Qty: 14 0RF Print Language: Vietnamese
[2025-05-30 11:07] LABS: MANUAL DIFF FLAG NO
[2025-05-30 11:09] LABS: Hematocrit 37.6 % (37.0-47.0); Hemoglobin 13.2 g/dl (12.0-16.0); Imm Gran Abs Auto 0.03 X10*3/uL (0.00-0.03); Imm Gran Pct Auto 0.3 % (0.0-0.4); Lymphocytes Absolute Auto 1.9 X10*3/uL (1.2-4.9); Mean Corpuscular HGB Conc 35.1 g/dl (31.0-35.0); Mean Corpuscular Hemoglobin 28.9 pg (27.0-33.0); Mean Corpuscular Volume 82.3 fL (80.0-98.0); NRBC Abs Auto 0.000 X10*3/uL (0.0-0.012); NRBC Pct Auto 0.0 /100WBC (0.0-0.2); Platelet Count 326 X10*3/uL (160-400); Red Blood Count 4.57 X10*6/uL (4.20-5.50); White Blood Count 10.2 X10*3/uL (4.8-10.8)
[2025-05-30 11:32] LABS: Anion Gap 10 (12-20); Blood Urea Nitrogen 16 mg/dL (9-16); Calcium 8.9 mg/dL (8.4-10.2); Carbon Dioxide 24 mmol/L (22-29); Chloride 107 mmol/L (96-108); Creatinine Clr Calc Pharmacy 162.0; Estimated Glomerular Filt Rate > 60; Potassium 4.2 mmol/L (3.3-5.1); Sodium 137 mmol/L (135-145)
[2025-05-30 12:26] VITALS: BP 133/88; PULSE 64; RESP 17; TEMP 36.6; O2SAT 100
--- OUTSIDE RECORDS SUMMARY | 2025-05-30 13:09 | XMS_ITS | Encounter Summary ---
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 Answer Date of Assessment Author No 02/14/2025 9:46 PM EDT Yesika Gould RN * Are you blind or do you have serious difficulty seeing, even when wearing glasses? Answer Date of Assessment Author No 02/14/2025 9:46 PM EDT Yesika Gould RN * Do you have serious difficulty walking or climbing stairs? Answer Date of Assessment Author No 02/14/2025 9:46 PM EDT Yesika Gould RN * Do you have serious difficulty dressing or bathing? 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 GLUCOSE, RANDOM Routine 02/16/2025 7:00 AM EDT Other snf (current) drug therapy documented in this encounter Results * (ABNORMAL) Lipid panel with reflex to direct LDL (02/16/2025 7:00 AM EDT) Cholesterol 144 0 - 200 mg/dL LAB CHEMISTRY METHOD 02/16/2025 12:14 PM EDT [facility] Triglycerides 130 0 - 150 mg/dL LAB CHEMISTRY METHOD 02/16/2025 12:14 PM EDT [facility] HDL 34(L) >=40 mg/dL LAB CHEMISTRY METHOD 02/16/2025 12:14 PM EDT [facility] LDL Calculated 84 0 - 100 mg/dL LAB CHEMISTRY METHOD 02/16/2025 12:14 PM EDT [facility] VLDL Cholesterol Pedro 26 mg/dL LAB CHEMISTRY METHOD 02/16/2025 12:14 PM T [facility] Non HDL Chol. (LDL+VLDL) 110 <145 mg/dL LAB CHEMISTRY METHOD 02/16/2025 12:14 PM EDT [facility] Chol/HDL Ratio 4.2 0.0 - 4.4 LAB CHEMISTRY METHOD 02/16/2025 12:14 PM T [facility] Blood Venous blood specimen / Unknown Venipuncture / Unknown 02/16/2025 7:00 AM EDT 02/16/2025 10:36 AM EDT us Teodora Fernandes NP LAB BLOOD ORDERABLES Final Resu lt [facility] [address] [place] [address], [place] [phone] * Glucose, random (02/16/2025 7:00 AM EDT) Glucose 90 70 - 100 mg/dL LAB CHEMISTRY METHOD 02/16/2025 12:26 PM EDT [facility] Blood Venous blood specimen / Unknown Venipuncture / Unknown 02/16/2025 7:00 AM EDT 02/16/2025 10:36 AM EDT Teodora Fernandes RESEARCH/PROGRAM DIRECTOR LAB BLOOD ORDERABLES Final Resu lt Performing Organization Address City/[facility]/ZIP Co de Phone Number [facility] [address] [place] [address], [place] [phone] * Hemoglobin A1c (02/16/2025 7:00 AM EDT) Hemoglobin A1C 5.5 <6.5 % LAB CHEMISTRY METHOD 02/16/2025 8:46 PM EDT [facility] Mean Bld Glu Estim. 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
--- OUTSIDE RECORDS SUMMARY | 2025-05-30 13:09 | XMS_ITS | Clinical Summary ---
Author Organization [address] [facility] Address [address] [place] [address] Phone Care Team Providers Care Conservation Scientist Name Role Phone Neville Barbosa Primary Care [...] mg total) by mouth at bedtime. Active Medical History Medical History Date Comments Autism [...] 02/14/2025 9:02 PM EDT Plan of Treatment Health Maintenance Due Date Last Done Comments DTaP,Tdap,and Td Vaccines (1 - Tdap) 2017 Hepatitis B Vaccines (1 of 3 - 19+ 3-dose series) 2017 Depression Screening 09/08/2024 Social Influencers of Health Screening 01/17/2025 COVID-19 Vaccine (1 - 2023-2 5 season) 2025 Influenza Vaccine (#1) 2025 Cervical Cancer Screening: P ap Smear 01/26/2028 01/25/2025 Cholesterol Screening (Lipid Panel) 02/16/2030 02/16/2025, 01/25/2025 RSV Immunization Adult Patients (1 - 1-dose 75+ series) 2073 HIV Screening Completed 01/25/2025 Hepatitis C Screening Completed 01/25/2025 HIB Vaccines Aged Out No longer eligi ble based on patient's age to complete this topic HPV Vaccines Aged Out No longer eligi ble [...] LDL Routine 02/16/2025 7:00 AM EDT Other residential (current) drug therapy from Last 3 Months or Most Recently Relevant to Health Maintenance Results * (ABNORMAL) Lipid panel with reflex to direct LDL (02/16/2025 7:00 AM EDT) Cholesterol 144 0 - 200 mg/dL LAB CHEMISTRY METHOD 02/16/2025 12:14 PM EDT [facility] Triglycerides 130 0 - 150 mg/dL LAB CHEMISTRY METHOD 02/16/2025 12:14 PM [facility] HDL 34(L) >=40 mg/dL LAB CHEMISTRY METHOD 02/16/2025 12:14 PM [facility] LDL Calculated 84 0 - 100 mg/dL LAB CHEMISTRY METHOD 02/16/2025 12:14 PM [facility] VLDL Cholesterol Pedro 26 mg/dL LAB CHEMISTRY METHOD 02/16/2025 12:14 PM [facility] Non HDL Chol. (LDL+VLDL) 110 <145 mg/dL LAB CHEMISTRY METHOD 02/16/2025 12:14 PM [facility] Chol/HDL Ratio 4.2 0.0 - 4.4 LAB CHEMISTRY METHOD 02/16/2025 12:14 PM [facility] Blood Venous blood specimen / Unknown Venipuncture / Unknown 02/16/2025 7:00 AM EDT 02/16/2025 10:[address] PRODUCTION GENERAL MANAGER LAB BLOOD ORDERABLES Final Resu lt [facility] [address] [place] [address], from Last 3 Months or Most Recently Relevant to Health Maintenance Insurance MEDICAID - [place] Care Teams Conservation Scientist Relationship Specialty Start Date End Date Neville Barbosa [address] [place] [id number] PCP - General Internal Medicine 01/17/25
--- OUTSIDE RECORDS SUMMARY | 2025-05-30 13:09 | XMS_ITS | Clinical Summary ---
Author Organization [employer] Address [address] [facility] 7t [place] [address] Care Team Providers Care Public Health Outreach Worker Name Role Phone Brittni Vargas MD Primary Care Provider [phone] Allergies Active Allergy Reactions Criticality Noted Date Comments Juniper Berries Anaphylaxis High 01/11/2025 Wound Dressing Adhesive Rash Low 02/15/2025 Medications * This document contains information received from the source organization and may not represent a complete record from that organization. methocarbamol (Robaxin) 750 MG tablet Take 750 mg by mouth if needed each day for muscle spasms. Active FLUoxetine (PROzac) 20 MG capsule Take 2 capsules (40 mg) by mouth Once per day. 90 capsule 5 Active ketoconazole (NIZOral) 2 % cream Apply 1 Application. topically Once per day. Active albuterol (Ventolin HFA) 108 (90 Base) MCG/ACT inhaler INHALE 2 PUFFS EVERY 6 HOURS IF NEEDED FOR WHEEZING. 18 g 5 5 Active Blood Pressure kitIndications:Trixie vated BP without diagnosis of hypertension To check the BP daily 1 kit 5 Active ferrous gluconate (Fergon) 324 (37.5 Fe) MG tablet TAKE 1 TABLET BY MOUTH WITH BREAKFAST. 5 Active pramipexole (Mirapex) 0.75 MG tablet Take 0.75 mg by mouth at bedtime. 5 Active Multiple Vitamin (multivitamin) tabletIndications: Healthcare maintenance Take 1 tablet by mouth Once per day. 30 tablet 3 5 Active propranolol (Inderal) 10 MG tabletIndications: Anxiety with depression Take 1 tablet (10 mg) by mouth 2 times daily. 60 tablet 5 Active traZODone (Desyrel) 100 MG tabletIndications: Anxiety with depression Take 2 tablets (200 mg) by mouth at bedtime. 60 tablet 5 Active montelukast (Singulair) 10 MG tabletIndications: Asthma, unspecified asthma severity, unspecified whether complicated, unspecified whether persistent Take 1 tablet (10 mg) by mouth at bedtime. 30 tablet 2 5 Active hydrOXYzine pamoate (Vistaril) 25 MG capsuleIndications :Anxiety with depression Take 1 capsule (25 mg) by mouth every 6 (six) hours if needed for itching. 30 capsule 2 5 Active amphetamine-dextro amphetamine XR (Adderall XR) 15 MG 24 hr capsuleIndications :Attention deficit hyperactivity disorder (ADHD), unspecified ADHD type Take 1 capsule (15 mg) by mouth in the morning. Do not crush or chew. 30 capsule 5 Active Caridad 3-0.02 MG tablet TAKE 1 TABLET BY MOUTH EVERY DAY 84 tablet 5 Active haloperidol (Haldol) 1 MG tablet TAKE 1 TABLET BY MOUTH AT BEDTIME 90 tablet 5 Active Hospital, Clinic, or Other Facility Administered Medication Ordered Dose Route Frequency Start Date End Date Status ibuprofen tablet 800 mgIndications:Other migraine with status migrainosus, not intractable 800 mg PO Once 05/30/2025 05/30/2025 Ended Active Problems Problem Noted Date Diagnosed Date Sleep apnea 01/25/2025 Assessment & Plan (01/25/2025 12:00 PM EDT): Patient reports was diagnosed with sleep apnea a couple of years ago in [place], reports she does not have supplies, no [...] pcp visit 6 months ago ER: [facility] Hospitalizations: mental health 2023 Pmhx: autism, bipolar [...] prescription of contracept pippa pills 01/11/2025 Encounters Date Type Department Care Team Description 05/30/2025 9:40 AM EDT Office Visit [facility] [address], [place] [phone] Iqra Mars MD Other migraine with status migrainosus, not intractable (Primary Dx); Dehydration 05/30/2025 Travel 04/21/2025 Refill [facility] [address] [place] [address] Neville Barbosa MD 04/20/2025 Refill [facility] [address] [place] [address] Neville Barbosa MD 04/19/2025 Refill [facility] [address] [place] [address] Neville Barbosa MD 04/11/2025 9:30 AM EDT Office Visit [facility] [address] [place] [address] Brittni Vargas MD Scabies (Primary Dx); Insect bite, unspecified site, initial encounter; Healthcare maintenance; Bipolar disorder, in partial remission, most recent episode mixed ([facility]); Anxiety with depression; Dietary counseling; Exercise counseling; Class 3 severe obesity due to excess calories with serious comorbidity and body mass index (BMI) of 40.0 to 44.9 in adult; Asthma, unspecified asthma severity, unspecified whether complicated, unspecified whether persistent; Attention deficit hyperactivity disorder (ADHD), unspecified ADHD type; Growth of ear canal; CARMEL (obstructive sleep apnea) 04/11/2025 Travel 04/04/2025 Patient Outreach [address] [address] Brittni Vargas MD Pre-visit Planning (Pre visit planning LVM ) 04/01/2025 Patient Outreach [address] [address] Brittni Vargas MD Care Coordination (CHW outreach for SDOH housing search-referral completed ) 03/31/2025 Results Follow-Up [facility] [address] [place] [address] Brittni Vargas MD CBC auto differential, Comprehensive Metabolic Panel 03/31/2025 Patient Outreach [address] [address] Brittni Vargas MD Care Coordination (CHW outreach for SDOH housing search-LVM ) 03/30/2025 5:00 PM EDT Office Visit [facility] [address] [place] [phone] Naila Redman NP Blister of skin (Primary Dx); Rash; Homelessness 03/30/2025 Telephone [facility] [address] [place], [place] [phone] Brittni Vargas MD Care Coordination 03/30/2025 Travel 03/22/2025 Results Follow-Up [facility] [address] [place] [address] Brittni Vargas MD XR Knee 3 Views Right 03/04/2025 Telephone [facility] [address] [place] [address] Brittni Vargas MD Letter for School/Work 03/01/2025 Patient Outreach [facility] () Department [address] [place] [phone] Ajit Dueñas 02/28/2025 11:15 AM EDT Office Visit [facility] [address] [place] [address] Misty Chapa MD Other chest pain (Primary Dx); Bipolar disorder, in partial remission, most recent episode mixed (CMS/HCC); Anxiety with depression; Dietary counseling; Exercise counseling; Class 3 severe obesity due to excess calories with serious comorbidity and body mass index (BMI) of 40.0 to 44.9 in adult; Chronic pain of right knee; Elevated BP without diagnosis of hypertension 02/28/2025 Travel from Last 3 Months Family History [...] Q2 Not on file 02/10/2025 Comments Unknown Intention Date Recorded No desire to become (finding) 0 04/11/2025 Sex and Gender Information Value Date Recorded [...] (249 lb) 05/30/2025 9:14 AM EDT Height 164 cm (5' 4.57 ) 04/11/2025 9:04 AM EDT Body Mass Index 41.99 04/11/2025 9:04 AM EDT Plan of Treatment Upcoming Encounters Date Type Department Care Team (Late st Contact Info) Description 06/29/2025 9:15 AM EDT Office Visit [facility] [address] [place] [address] Brittni Vargas MD [address] [place] [address] 07/19/2025 1:45 PM EST Office Visit [facility] [address] [place] [address] Peggy Connor, OD [address] [place] [address] Health Maintenance Due Date Last Done Comments Derm Melanoma Skin Check 1998 Alcohol/Substance Use Screening 2010 HPV Vaccines (1 - 3-dose series) 2013 DTaP/Tdap/Td Vaccines (1 - Tdap) 2017 Hepatitis A Vaccines (1 of 2 - Risk 2-dose series) 2017 Hepatitis B Vaccines (1 of 3 - 19+ 3-dose series) 2017 Pneumococcal Vaccine: Pediatrics (0 to 5 Years) and At-Risk Patients (6 to 49) Years (1 of 2 - PCV) 2017 COVID-19 Vaccine (1 - 2023-2 5 season) 2025 Depression Monitoring 07/28/2025 01/25/2025 , 01/25/2025 SDOH Screening 02/10/2026 02/10/2025 Disability Screening 02/14/2026 02/14/2025 Family Planning (PISQ) 04/11/2026 04/11/2025 Tobacco Screening 05/30/2026 05/30/2025 Pap Smear 01/26/2028 01/25/2025 Lipid Panel 01/25/2030 01/25/2025 Zoster Vaccines (1 of 2) 2048 RSV Patients and Patients Aged 60 years or older (1 - 1-dose 75+ series) 2073 HIV Screening Completed 01/25/2025 Hepatitis C Screening Completed 01/25/2025 Influenza Vaccine Completed 05/05/2025 HIB Vaccines Aged Out No longer eligi [...] Procedure Name Priority Date/Time Associated Diagnosis Comments HCG, TOTAL, QN Routine 05/30/2025 10:57 AM EDT BASIC METABOLIC PANEL Routine 05/30/2025 10:57 AM EDT CBC WITH AUTO DIFFERENTIAL Routine 05/30/2025 10:57 AM EDT XR KNEE 3 VIEWS RIGHT Routine 03/21/2025 2:00 PM EDT Chronic pain of right knee COMPREHENSIVE METABOLIC PANEL Routine 03/21/2025 1:10 PM EDT Elevated BP without diagnosis of hypertension CBC WITH AUTO DIFFERENTIAL Routine 03/21/2025 1:10 PM EDT Elevated BP without diagnosis of hypertension HEPATITIS C AB W/REFL TO HCV RNA, [...] 01/25/2025 1:09 PM EDT Cervical cancer screening from Last 3 Months or Most Recently Relevant to Health Maintenance Results * (ABNORMAL) CBC auto differential (05/30/2025 10:57 AM EDT) Only the most recent of2 resultswithin the time period is included. White Blood Count 10.2 4.8 - 10.8 X10*3/uL [facility] Red Blood Count 4.57 4.20 - 5.50 X10*6/uL [facility] Hemoglobin 13.2 12.0 - 16.0 g/dl [facility] Hematocrit 37.6 37.0 - 47.0 % [facility] Mean Corpuscular Volume 82.3 80.0 - 98.0 fL [facility] Mean Corpuscular Hemoglobin 28.9 27.0 - 33.0 pg [facility] Mean Corpuscular HGB Conc 35.1(H) 31.0 - 35.0 g/dl [facility] Red Cell Distribution Width 11.9 11.0 - 16.0 % [facility] Platelet Count 326 160 - 400 X10*3/uL [facility] Mean Platelet Volume 9.4 9.4 - 12.3 fL [facility] Neutrophils Percent Auto 75.5(H) 45 - 73 % [facility] Imm Gran Pct Auto 0.3 0.0 - 0.4 % [facility] Lymphocytes Percent Auto 18.6(L) 20 - 40 % [facility] Monocytes Percent Auto 4.4 2 - 11 % [facility] Eosinophils Percent Auto 0.9 0 - 4 % [facility] Basophils Percent Auto 0.3 0 - 2 % [facility] NRBC Pct Auto 0.0 0.0 - 0.2 /100WBC [facility] Neutrophils Absolute Auto 7.7 2.0 - 8.3 x10*3/uL [facility] Imm Gran Abs Auto 0.03 0.00 - 0.03 X10*3/uL [facility] Lymphocytes Absolute Auto 1.9 1.2 - 4.9 X10*3/uL [facility] Monocytes Absolute Auto 0.5 0.1 - 1.2 X10*3/uL [facility] Eosinophils Absolute Auto 0.1 0.0 - 0.4 X10*3/uL [facility] Basophils Absolute Auto 0.0 0.0 - 0.2 X10*3/uL [facility] NRBC Abs Auto 0.000 0.0 - 0.012 X10*3/uL [facility] 05/30/2025 10:5 7 AM EDT 05/30/2025 11:06 AM EDT Generic External Data Provider LAB BLOOD ORDERAB LES Final Result Performing Organization Address [facility]/ZIP Co de Phone Number [facility] [address] [place] [phone] * hCG, Total, Quantitative (05/30/2025 10:57 AM EDT) HCG Quantitative <2 mIU/mL [facility] Comment:Weeks post LMP Appro ximate hCG(Last Menstrual Period) Range (mIU/ml)3 - 4 weeks 9 - 1304 - 5 weeks 75 - 2,6005 - 6 weeks 850 - 20,8006 - 7 weeks 4000 - 100,2007 - 12 weeks 11,500 - 289,24654 - 16 weeks 18,300 - 137,43036 - 29 weeks (2nd trimester) 1,400 - 53,63929 - 41 weeks (3rd trimester) 940 - 60,000The [place]askins B- hCG assay is used for the early detection ofpregnancy; it cannot be used to diagnose any conditionunrelated to . If a B-hCG level is not supportedby the clinical evidence, results should be confirmed by analternative method (qualitative urine hCG, for example). 05/30/2025 10:5 7 AM EDT 05/30/2025 11:06 AM EDT Generic External Data Provider LAB BLOOD ORDERAB LES Final Result Performing Organization Address [facility] Co de Phone Number [facility] [address] [place] [phone] * (ABNORMAL) Basic Metabolic Panel (05/30/2025 10:57 AM EDT) Sodium 137 135 - 145 mmol/L [facility] Potassium 4.2 3.3 - 5.1 mmol/L [facility] Comment:Slight Hemolysis.Int erpret result with caution. Chloride 107 96 - 108 mmol/L [facility] Carbon Dioxide 24 22 - 29 mmol/L [facility] Anion Gap 10(L) 12 - 20 [facility] Urea Nitrogen (BUN) 16 9 - 16 mg/dL [facility] Creatinine, Serum 0.64 0.5 - 1.4 mg/dL [facility] Creatinine Clr Calc Pharmacy 162.0 [facility] Comment:Provided height and weight: 162.56 cm,112.3 kg.eGFR (calculated from the MDRD study equation) and eCrCl(calculated from the Cockcroft-Gault equation) are based ondifferent parameters and may not yield comparable results.If eCrCl result is absurd, please check patient'sheight/weight. Estimated Glomerular Filt Rate >60 [facility] Comment:Chronic Kidney Disea se: Estimated GFR < 60 mL/min/1.24x0Lpikdv Kidney Disease: Estimated GFR < 15 mL/min/1.73m2 Glucose 109 60 - 115 mg/dL [facility] Calcium 8.9 8.4 - 10.2 mg/dL [facility] 05/30/2025 10:5 7 AM EDT 05/30/2025 11:06 AM EDT us Generic External Data Provider LAB BLOOD ORDERAB LES Final Result Performing Organization Address City/State/[facility] Co de Phone Number [facility] [address] [place] [phone] * XR Knee 3 Views Right (03/21/2025 2:00 PM EDT) Anatomical Region Laterality Modality Lower Extremities, Knee Right Radiogra phic Imaging 03/21/2025 2:00 PM EDT Narrative 03/21/2025 2:23 PM EDT [address] [address] XRay Report Signed Patient: Silvia Parham MR#: [id number] : 2000 Acct:[id number] Age/Sex: 24 / F ADM Date: 03/21/25 Loc: [facility] Attending Dr: Misty Chapa MD Ordering Physician: Misty Chapa MD Date of Service: 03/21/25 Procedure(s): XR knee RT 3V Accession Number(s): [id number] cc: Misty Chapa MD; Physician,Unknown EXAMINATION: XR KNEE, RIGHT CLINICAL INFORMATION: right knee pain COMPARISON: None available. TECHNIQUE: Three views of the right knee. FINDINGS: There is no joint effusion. There is mild medial joint space narrowing. No fracture or deformity is identified. XR/XR knee RT 3V IMPRESSION: Mild nonspecific medial joint space narrowing. Electronically signed by: Luis Alberto Fields MD 03/21/2025 02:21 PM EDT Dictated By: Luis Alberto Fields MD Signed By: <Electronically signed by Luis Alberto Fields MD in OV> 03/21/25 1421 DD/ 1400 TD/TT: 03/21/25 1405 Aws Architect: Procedure Note Donotuseinterpreter, Image - 03/21/2025 [place] [address] XRay Report Signed Patient: Silvia Parham [facility]#: [id number] : 2000Acct:[id number] Age/Sex: 24 / FADM Date: 03/21/25 Loc: [facility] Attending Dr: Misty Chapa MD Ordering Physician: Misty Chapa MD Date of Service: 03/21/25 Procedure(s): XR knee RT 3V Accession Number(s): [id number] cc: Misty Chapa MD; Physician,Unknown EXAMINATION: XR KNEE, RIGHT CLINICAL INFORMATION: right knee pain COMPARISON: None available. TECHNIQUE: Three views of the right knee. FINDINGS: There is no joint effusion. There is mild medial joint space narrowing. No fracture or deformity is identified. XR/XR knee RT 3V IMPRESSION: Mild nonspecific medial joint space narrowing. Electronically signed by: Luis Alberto Fields MD 03/21/2025 02:21 PM EDT RP Dictated By: Luis Alberto Fields MD Signed By: <Electronically signed by Luis Alberto Fields MD in OV> 03/21/25 1421 DD/ 1400 TD/TT: 03/21/25 1405 Aws Architect: us Misty Chapa MD IMG XR PROCEDURES Final Res ult * (ABNORMAL) Comprehensive Metabolic Panel (03/21/2025 1:10 PM EDT) Sodium 140 135 - 145 mmol/L [facility] Potassium 3.9 3.3 - 5.1 mmol/L [facility] Chloride 111(H) 96 - 108 mmol/L [facility] Carbon Dioxide 22 22 - 29 mmol/L [facility] Anion Gap 11(L) 12 - 20 [facility] Urea Nitrogen (BUN) 9 9 - 16 mg/dL [facility] Creatinine, Serum 0.71 0.5 - 1.4 mg/dL [facility] Estimated Glomerular Filt Rate >60 [facility] Comment:Chronic Kidney Disea se: Estimated GFR < 60 mL/min/1.49p8Fghztc Kidney Disease: Estimated GFR < 15 mL/min/1.73m2 Glucose 100 60 - 115 mg/dL [facility] Calcium 8.9 8.4 - 10.2 mg/dL [facility] Bilirubin, Total 0.3 0.0 - 1.0 mg/dL [facility] Aspartate Amino Transferase 27 5 - 31 U/L [facility] Alanine Aminotransferase 27 0 - 31 U/L [facility] Total Protein 6.7 6.5 - 8.0 g/dL [facility] Albumin Level 3.8 3.5 - 5.0 g/dL [facility] Alkaline Phosphatase 57 39 - 117 U/L [facility] Blood Venous blood specimen / Unknown 03/21/2025 1:10 PM EDT 03/21/2025 4:50 PM EDT us Brittni Vargas MD LAB BLOOD ORDERABLES Final Re sult Performing Organization Address [facility]/ZIP Co de Phone Number [facility] [address] [place] [phone] * Hepatitis C Antibody with Reflex to HCV, RNA, Quantitative, Real-Time PCR (01/25/2025 1:22 PM EDT) Hepatitis C Antibody Nonreactive Nonreactive [facility] Comment:Antibodies to HCV no t detected; does not exclude early acuteHCV infection. Blood Venous blood specimen / Unknown 01/25/2025 1:22 PM EDT 01/25/2025 2:14 PM EDT Neville Monteiro MD LAB BLOOD ORDERABL ES Final Result Performing Organization Address [facility] Co de Phone Number [facility] [address] [place] [phone] * HIV-1/2 Antigen and Antibodies, Fourth Generation, with Reflexes (01/25/2025 1:22 PM EDT) Pathologist [facility] HIV AB/AG Nonreactive Nonreactive [facility] Comment:HIV-1 p24 Ag and/or HIV-1/HIV-2 Ab not detected.A test result that is nonreactive does not exclude thepossibility of exposure to or infection with HIV-1 and/orHIV-2. Nonreactive results in this assay for individualswith prior exposure to HIV-1 and/or HIV-2 may be due toantigen and antibody levels that are below the limit ofdetection of this assay.The 3Scannisharing.it HIV Ag/Ab Combo assay result andsupplemental assay results should be interpreted inconjunction with the patient's clinical presentation,history and other laboratory results. If the results areinconsistent with clinical evidence, additional testing issuggested to confirm the result. Blood Venous blood specimen / Unknown 01/25/2025 1:22 PM EDT 01/25/2025 2:14 PM EDT us Neville Monteiro MD LAB BLOOD ORDERABL ES Final Result Performing Organization Address [facility] Co de Phone Number [facility] [address] [place] [phone] * (ABNORMAL) Lipid Panel, Standard (01/25/2025 1:22 PM EDT) Triglycerides 93 <150 mg/dL [facility] Comment:Desirable Triglyceri de: less than 150 mg/dLBorderline High Triglyceride 150-199 mg/dLHigh Triglyceride: 200-499 mg/dLVery High Triglyceride: greater than or equal to 5OO mg/dL Cholesterol 161 <200 mg/dL [facility] Comment:Desirable Cholestero l: less than 200 mg/dLBorderline High Cholesterol: 200-239 mg/dLHigh Cholesterol: greater than 239 mg/dL LDL Cholesterol Calculated 114(H) <100 mg/dL [facility] Comment:Desirable LDL: less than 100 mg/dLNear Optimal/Above Optimal LDL: 110- 129 mg/dLBorderline High LDL: 130-159 mg/dLHigh LDL: 160-189 mg/dLVery High LDL: greater than or equal to 190 mg/dL HDL Cholesterol 29(L) >40 mg/dL [facility] Comment:Desirable HDL: great er than 40 mg/dL Note: This HDL assay may give artificially low results in patients with liver disease. Blood Venous blood specimen / Unknown 01/25/2025 1:22 PM EDT 01/25/2025 2:14 PM EDT us Neville Monteiro MD LAB BLOOD ORDERABL ES Final Result Performing Organization Address [facility]/ZIP Co de Phone Number [facility] [address] [place] [phone] * Pap Smear (01/25/2025 1:09 PM EDT) Swab Cervical swab / Unknown 01/25/2025 1:09 PM EDT 01/26/2025 9:30 AM EDT Jacques [facility] - 01/28/2025 9:27 AM EDT ----- ------- Name: Silvia Parham Age/Sex: / : 2000 Unit#: [id number] Attend Dr: Brittni Vargas MD Re01/25/25 Status: DEP [facility] ----- ------- SPEC : [id number] RECD: 01/26/25 STATUS: JULI MOISE NUM: [id number] FABIANO: 01/25/25-1309 [facility] DR: Brittni Vargas MD ENTERED: 01/26/25-1021 SP TYPE: Pap Smr OT DR: ORDERED: Pap Smear Interpretation Satisfactory for evaluation. Negative for intraepithelial lesion or malignancy. Moderate inflammation. Clinical Information LMP: 01/02/2025 Previous PAP test: Unknown date/findings Material Received ThinPrep-Cervical ----- ------- Signed (signature on file) OLGA Babin ([facility]) 01/28/25 0927 ----- ------- END OF REPORT us Brittni Vargas MD LAB CYTOLOGY ORDERABLES Final Result [facility] [address] [place] [phone] from Last 3 Months or Most Recently Relevant to Health Maintenance Insurance [facility] C3 Care Teams Public Health Outreach Worker Relationship Specialty Start Date End Date Brittni Vargas MD [address] [place] [phone] PCP - General Family Medicine 04/11/25
--- OUTSIDE RECORDS SUMMARY | 2025-05-30 13:09 | XMS_ITS | Encounter Summary ---
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
--- OUTSIDE RECORDS SUMMARY | 2025-05-30 13:09 | XMS_ITS | Encounter Summary ---
Author Organization [employer] Address [address] [facility] [address]t [place] [address] Care Team Providers Care Home And Family Living Professor Name Role Phone Brittni Vargas MD Primary Care Provider [phone] Brittni Vargas MD Primary Care Provider [phone] Encounter Details Date Type Department Care Team (Latest Contact Info) Description 03/31/2025 Results Follow-Up [facility] CHC MED & PEDS [address] [place], [place] [phone] Brittni Vargas MD [address] [place] [address] CBC auto differential, Comprehensive Metabolic Panel Social History Tobacco Use Types Packs/Day Years [...] Description 06/29/2025 9:15 AM EDT Office Visit [facility] CHC MED & PEDS [address] [place] [address] Brittni Vargas MD [address] [place] [address] 07/19/2025 1:45 PM EST Office Visit [facility] OPTOMETRY [address] [place] [address] Tarka, Peggy, OD [address] [place] [address] documented as of this encounter Visit Diagnoses Not on filedocumented in this encounter Additional Health Concerns Assessment Noted Time PHQ-9 Depression Total Score: 11 025 1:24 PM EDT documented as of this encounter Care Teams Home And Family Living Professor Relationship Specialty Start Date End Date Brittni Vargas MD [address] [place] [address] PCP - General Family Medicine 02/21/25 04/10/25 Brittni Vargas MD [address] [place] [address] PCP - General Family Medicine 04/11/25 documented as of this encounter
--- OUTSIDE RECORDS SUMMARY | 2025-05-30 13:09 | XMS_ITS | Encounter Summary ---
Author Organization [employer] Address [address] [facility] 7t [place] [address] Care Team Providers Care Soil Tester Name Role Phone Brittni Vargas MD Primary Care Provider [phone] Reason for Visit * Reason Comments Med Refill Encounter Details Date Type Department Care Team ([facility] Contact Info) Description 04/19/2025 Refill [facility] CHC MED & PEDS [address] [place], [place] [phone] Neville Barbosa MD [address] [place] [address] Social History Tobacco Use Types Packs/Day Years [...] Description 06/29/2025 9:15 AM EDT Office Visit [facility] CHC MED & PEDS [address] [place] [address] Brittni Vargas MD [address] [place] [address] 07/19/2025 1:45 PM EST Office Visit [facility] OPTOMETRY [address] [place] [address] Tarka, Peggy, OD [address] [place] [address] documented as of this encounter Visit Diagnoses Not on filedocumented in this encounter Additional Health Concerns Assessment Noted Time PHQ-9 Depression Total Score: 11 025 1:24 PM EDT documented as of this encounter Care Teams Soil Tester Relationship Specialty Start Date End Date Brittni Vargas MD [address] [place] [address] PCP - General Family Medicine 04/11/25 documented as of this encounter
--- OUTSIDE RECORDS SUMMARY | 2025-05-30 13:09 | XMS_ITS | Encounter Summary ---
Author Organization [employer] Address [address] [facility] [address] [place] [address] Care Team Providers Care Program Director Substance Abuse Name Role Phone Brittni Vargas MD Primary Care Provider [phone] Encounter Details Date Type Department Care Team (Latest Contact Info) Description 05/30/2025 Travel Social History Tobacco Use Types Packs/Day [...] Description 06/29/2025 9:15 AM EDT Office Visit [facility] CHC MED & PEDS [address] [place] [address] Brittni Vargas MD [address] [place] [address] 07/19/2025 1:45 PM EST Office Visit [facility] OPTOMETRY [address] [place] [address] Tarka, Peggy, OD [address] [place] [address] documented as of this encounter Visit Diagnoses Not on filedocumented in this encounter Additional Health Concerns Assessment Noted Time PHQ-9 Depression Total Score: 11 025 1:24 PM EDT documented as of this encounter Care Teams Program Director Substance Abuse Relationship Specialty Start Date End Date Brittni Vargas MD [address] [place] [address] PCP - General Family Medicine 04/11/25 documented as of this encounter
[2025-05-30 13:33] VITALS: BP 133/88; PULSE 64; RESP 17; TEMP 36.6; O2SAT 100
== END 2025-05-30 13:38 | disposition home or self-care (01) ==
PROVIDERS: Emergency Provider Emergency Medicine
DX: R51.9 Headache, unspecified (principal); Z79.899 Other long term (current) drug therapy
CPT/HCPCS: 36415; 80048; 84702; 85025; 96361; 96374; 99284; 99285; J0131

== ENCOUNTER 2025-07-19 15:28 | Outpatient (REF) | payer MEDICAID, SELFPAY ==
--- NOTE | ~2025-07-19 | XR_ITS ---
EXAMINATION: X-ray bilateral knees CLINICAL INFORMATION: Right knee medial joint line tenderness COMPARISON: X-ray right knee 03/21/2025 TECHNIQUE: AP bilateral knees one view. Right knee 2 views. Left knee 2 views. FINDINGS: Right knee: No acute fracture or dislocation. Joint spaces are maintained. No effusion. No abnormal soft tissue calcification. Left knee: No acute fracture or dislocation. No effusion. No significant joint space narrowing. No abnormal soft tissue calcification. XR/XR Knee Juan 4V IMPRESSION: No acute findings Electronically signed by: Kameron Reynolds MD 07/20/2025 11:14 AM JEAN-PIERRE
--- OUTSIDE RECORDS SUMMARY | 2025-07-19 13:45 | XMS_ITS | Encounter Summary ---
Author Organization [employer] Address [address] [facility] [address] [place] [address] Care Team Providers Care Church Supervisor Name Role Phone Brittni Vargas MD Primary Care Provider [phone] Encounter Details Date Type Department Care Team ([facility] Contact Info) Description 07/19/2025 1:45 PM EST Office Visit [facility] OPTOMETRY [address] [place], [place] [phone] Peggy Connor, OD [address] [place] [address] Subjective visual disturbance (Primary Dx); Regular astigmatism, bilateral Social History Tobacco Use Types Packs/Day Years [...] PM EDT documented as of this encounter Progress Notes * Peggy Connor, HALEY - 07/19/2025 1:45 PM EST Eye Care Progress Note Patient ID: Silvia Parham is a 25 y.o. female. HPI Patient complains of episode a few months ago of pink dots in her vision that lasted about half an hour. She is not sure which eye was affected. Patient did not have a headache before, during or after this event. Patient denies presence of flashes or rainbows but said she remembers some yellow areas in her vision as well. Patient reports diplopia when focusing up close. She says this usually happens when she gets tired and has gotten worse over time. Patient often takes off her glasses at the end of the day when she is on her phone/game in bed. RANJEET: 1 year ago in [facility] Last edited by Peggy Connor OD on 07/19/2025 2:09 PM. Current Medications[1] Medical History[2] Surgical History[3] Family History[4] Tobacco Use: High Risk (07/19/2025) Tobacco Smoking Tobacco Use: Never Smokeless Tobacco Use: Current Passive Exposure: Not on file Allergies[5] ROS Positive for: Eyes Negative for: Constitutional, Gastrointestinal, Neurological, Skin, Genitourinary, Musculoskeletal,HENT, Endocrine, Cardiovascular, Respiratory, Psychiatric, Allergic/Imm, Heme/Lymph Last edited by Peggy Connor OD on 07/19/2025 1:23 PM. Base Eye Exam Visual Acuity (Snellen - Linear) Right Left Dist cc 20/20-2 20/25-1 Intermittent diplopia OS Tonometry ([facility] , 1:52 PM) Right Left Pressure 14 14 Pupils Pupils APD Right PERRL None Left PERRL None Visual Bennett (Counting fingers) Left Right Full Full Extraocular Movement Right Left Full Full Neuro/Psych Oriented x3: Yes Mood/Affect: Normal Dilation Both eyes: 1.0% tropicamide @ 1:52 PM Additional Tests Stereo Circles: 4/10 (100 ) RanDot global stereo: able to see all shapes (250 ) Additional Notes Cover test: ortho at distance, flick (~2) XP at near both with and without correction NPC (without correction (SC)): TTN Slit Lamp and Fundus Exam External Exam Right Left External Normal Normal Slit Lamp Exam Right Left Lids/Lashes Clean and clear Clean and clear Conjunctiva/Sclera White and quiet White and quiet Cornea Clear Clear Anterior Chamber Deep and quiet, angles open Deep and quiet, angles open Iris Flat, round Flat, round Lens Clear Clear Fundus Exam Right Left Vitreous Clear Clear Disc Wauna and healthy Wauna and healthy C/D Ratio Vertical 0.50 0.50 C/D Ratio Horizontal 0.50 0.50 Macula Flat, even pigmentation Flat, even pigmentation Vessels AV 2/3, normal course and caliber AV 2/3, normal course and caliber Periphery No holes/tears/detachments 360 No holes/tears/detachments 360 Refraction Wearing Rx Sphere Cylinder [place] Right -1.00 -0.75 088 Left -1.25 -1.25 066 Manifest Refraction (Subjective) Sphere Cylinder [place] Dist [place] Right -1.25 -0.75 110 20/20 Left -1.75 -1.25 065 20/20 Comments: Binocular balanced Final Rx Sphere Cylinder [place] Dist VA Right -1.25 -0.75 110 20/20 Left -1.75 -1.25 065 20/20 Expiration Date: 07/19/2027 Assessment and Plan Diagnoses and all orders for this visit: Subjective visual disturbance - Patient reports episode of pink and yellow moving spots in her vision that lasted about 30 minutes - No ocular pathology present on examination today. Discussed symptoms of retinal detachment and toRTC immediately if flashes/floaters/curtains over vision occur - Possible ocular migraine. Advised to contact the clinic if episodes recur and last longer than 1 hour - Patient also reports diplopia at near when fatigued but all binocular vision testing WNL. Discussed convergence required for near activities and to try wearing glasses at near to promote convergence if diplopia recurs. Regular astigmatism, bilateral - Dispensed updated spec Rx RTC in 1 year for comprehensive eye exam per patient request or sooner as needed Peggy Connor, OD 07/19/2025, 2:12 PM [1] Current Outpatient Medications Medication Sig Dispense Refill albuterol (Ventolin HFA) 108 (90 Base) MCG/ACT inhaler INHALE 2 PUFFS EVERY 6 HOURS IF NEEDED FOR WHEEZING. 18 g 5 amphetamine-dextroamphetamine XR (Adderall XR) 15 MG 24 hr capsule Take 1 capsule (15 mg) by mouth in the morning. Do not crush or chew. 30 capsule 0 ascorbic acid (Vitamin C) 500 MG tablet Take 1 tablet (500 mg) by mouth Once per day. 30 tablet 11 borbrzi-jehugnmyhwnei-pkbpclmb (Excedrin Migraine) 250-250-65 MG tablet Take 2 tablets by mouth every 8 (eight) hours if needed for headaches. 60 tablet 0 Blood Pressure kit To check the BP daily 1 kit 0 busPIRone (Buspar) 5 MG tablet TAKE 1 TABLET TWICE PER DAY FOR ANXIETY diclofenac (Cataflam) 50 MG tablet Take 1 tablet (50 mg) by mouth 3 times daily. 90 tablet 0 ferrous gluconate (Fergon) 324 (37.5 Fe) MG tablet Take 1 tablet (324 mg) by mouth with breakfast. 90 tablet 1 FLUoxetine (PROzac) 40 MG capsule Take 1 capsule by mouth Once per day. haloperidol (Haldol) 1 MG tablet TAKE 1 TABLET BY MOUTH AT BEDTIME 90 tablet 0 hydrOXYzine HCl (Atarax) 10 MG tablet TAKE 2 TABLETS (20 MG ) UP TO THREE TIMES A DAY NEEDED FORANXIETY ketoconazole (NIZOral) 2 % cream Apply 1 Application. topically Once per day. Multiple Vitamin (multivitamin) tablet Take 1 tablet by mouth Once per day. 120 tablet 3 Caridad 3-0.02 MG tablet TAKE 1 TABLET BY MOUTH EVERY DAY 84 tablet 0 pramipexole (Mirapex) 0.75 MG tablet Take 0.75 mg by mouth at bedtime. propranolol (Inderal) 10 MG tablet Take 1 tablet (10 mg) by mouth 2 times daily. 60 tablet 0 traZODone (Desyrel) 100 MG tablet Take 2 tablets (200 mg) by mouth at bedtime. 60 tablet 0 No current facility-administered medications for this visit. [2] Past Medical History: Diagnosis Date ADHD Autism spectrum disorder Bipolar disorder (HCC) PTSD (post-traumatic stress disorder) Restless leg syndrome Sleep apnea [3] Past Surgical History: Procedure Laterality Date CHOLECYSTECTOMY [4] Family History Problem Relation Name Age of Onset Coronary artery disease Mother Deep vein thrombosis Mother Diabetes Mother Breast cancer Mother 57 Hypertension Mother Diabetes Father Bipolar disorder Father Asperger's syndrome Father Ovarian cancer Maternal Grandmother Leukemia Maternal Grandfather [5] Allergies Allergen Reactions Juniper Berries Anaphylaxis Wound Dressing Adhesive Rash documented in this encounter Plan of Treatment Upcoming Encounters Date Type Department Care Team (Late st Contact Info) Description 08/12/2025 2:15 PM EST Office Visit [facility] MED & PEDS [address] [place] [address] Brittni Vargas MD [address] [place] [address] 09/22/2025 2:00 PM EST Clinical Support [facility] DIABETES/NTRN [address] [place], [place] [phone] Savanna Simmons, RD [address] [place], [place] [phone] documented as of this encounter Visit Diagnoses Diagnosis Subjective visual disturbance- Primary Unspecified subjective visual disturbance Regular astigmatism, bilateral documented in this encounter Additional Health Concerns Assessment Noted Time PHQ-9 Depression Total Score: 025 1:24 PM EDT documented as of this encounter Care Teams Church Supervisor Relationship Specialty Start Date End Date Brittni Vargas MD [address] [place] [address] PCP - General Family Medicine 04/11/25 Alex Martinez NP Nurse Practitioner Psychiatry 04/29/25 documented as of this encounter
[2025-07-19 16:10] LABS: MANUAL DIFF FLAG NO
[2025-07-19 16:25] LABS: Hematocrit 41.0 % (37.0-47.0); Hemoglobin 13.3 g/dl (12.0-16.0); Imm Gran Abs Auto 0.08 X10*3/uL (0.00-0.03); Imm Gran Pct Auto 0.5 % (0.0-0.4); Lymphocytes Absolute Auto 3.4 X10*3/uL (1.2-4.9); Mean Corpuscular HGB Conc 32.4 g/dl (31.0-35.0); Mean Corpuscular Hemoglobin 27.9 pg (27.0-33.0); Mean Corpuscular Volume 86.1 fL (80.0-98.0); NRBC Abs Auto 0.000 X10*3/uL (0.0-0.012); NRBC Pct Auto 0.0 /100WBC (0.0-0.2); Platelet Count 388 X10*3/uL (160-400); Red Blood Count 4.76 X10*6/uL (4.20-5.50); White Blood Count 15.3 X10*3/uL (4.8-10.8)
--- OUTSIDE RECORDS SUMMARY | 2025-07-19 17:07 | XMS_ITS | Encounter Summary ---
Author Organization [employer] Address [address] [facility] 7t [place] [address] Care Team Providers Care Banking Pin Adjuster Name Role Phone Brittni Vargas MD Primary Care Provider [phone] Reason for Visit * Reason Comments Med Refill Encounter Details Date Type Department Care Team ([facility] Contact Info) Description 04/19/2025 Refill [facility] CHC MED & PEDS [address] [place], [place] [phone] Neville Barbosa MD [address] [place] [address] Social History Tobacco Use Types Packs/Day Years [...] Description 08/12/2025 2:15 PM EST Office Visit [facility] MED & PEDS [address] [place] [address] Brittni Vargas MD [address] [place] [address] 09/22/2025 2:00 PM EST Clinical Support [facility] DIABETES/NTRN [address] [place], [place] [phone] Savanna Simmons, RD [address] [place], [place] [phone] documented as of this encounter Visit Diagnoses Not on filedocumented in this encounter Additional Health Concerns Assessment Noted Time PHQ-9 Depression Total Score: 11 025 1:24 PM EDT documented as of this encounter Care Teams Banking Pin Adjuster Relationship Specialty Start Date End Date Brittni Vargas MD [address] [place] [address] PCP - General Family Medicine 04/11/25 Alex Martinez, ELECTRICAL AND INSTRUMENT MECHANIC Nurse Practitioner Psychiatry 04/29/25 documented as of this encounter
--- OUTSIDE RECORDS SUMMARY | 2025-07-19 17:07 | XMS_ITS | Clinical Summary ---
Author Organization [employer] Address [address] [facility] 7[address] [place] [address] Care Team Providers Care Almond Paste Mixer Name Role Phone Brittni Vargas MD Primary Care Provider [phone] Allergies Active Allergy Reactions Criticality Noted Date Comments Juniper Berries Anaphylaxis High 01/11/2025 Wound Dressing Adhesive Rash Low 02/15/2025 Medications * This document contains information received from the source organization and may not represent a complete record from that organization. ketoconazole (NIZOral) 2 % cream Apply 1 Application. topically Once per day. Active albuterol (Ventolin HFA) 108 (90 Base) MCG/ACT inhaler INHALE 2 PUFFS EVERY 6 HOURS IF NEEDED FOR WHEEZING. 18 g 5 02/22/20 25 Active Blood Pressure kitIndications:E levated BP without diagnosis of hypertension To check the BP daily 1 kit 02/29/20 25 Active pramipexole (Mirapex) 0.75 MG tablet Take 0.75 mg by mouth at bedtime. 02/24/20 25 Active propranolol (Inderal) 10 MG tabletIndication s:Anxiety with depression Take 1 tablet (10 mg) by mouth 2 times daily. 60 tablet 04/11/20 25 Active traZODone (Desyrel) 100 MG tabletIndication s:Anxiety with depression Take 2 tablets (200 mg) by mouth at bedtime. 60 tablet 04/11/20 25 Active amphetamine-dext roamphetamine XR (Adderall XR) 15 MG 24 hr capsuleIndicatio ns:Attention deficit hyperactivity disorder (ADHD), unspecified ADHD type Take 1 capsule (15 mg) by mouth in the morning. Do not crush or chew. 30 capsule 04/11/20 25 Active Caridad 3-0.02 MG tablet TAKE 1 TABLET BY MOUTH EVERY DAY 84 tablet 04/20/20 25 Active haloperidol (Haldol) 1 MG tablet TAKE 1 TABLET BY MOUTH AT BEDTIME 90 tablet 04/22/20 25 Active busPIRone (Buspar) 5 MG tablet TAKE 1 TABLET TWICE PER DAY FOR ANXIETY 05/12/20 25 Active hydrOXYzine HCl (Atarax) 10 MG tablet TAKE 2 TABLETS (20 MG ) UP TO THREE TIMES A DAY NEEDED FOR ANXIETY 05/12/20 25 Active FLUoxetine (PROzac) 40 MG capsule Take 1 capsule by mouth Once per day. 05/17/20 25 Active Multiple Vitamin (multivitamin) tabletIndication s:Healthcare maintenance Take 1 tablet by mouth Once per day. 120 tablet 3 06/29/20 25 Active ferrous gluconate (Fergon) 324 (37.5 Fe) MG tablet Take 1 tablet (324 mg) by mouth with breakfast. 90 tablet 1 06/29/20 25 Active ascorbic acid (Vitamin C) 500 MG tablet Take 1 tablet (500 mg) by mouth Once per day. 30 tablet 11 06/29/20 25 026 Active diclofenac (Cataflam) 50 MG tablet Take 1 tablet (50 mg) by mouth 3 times daily. 90 tablet 06/29/20 25 Active aspirin-acetamin ophen-caffeine (Excedrin Migraine) 250-250-65 MG tablet Take 2 tablets by mouth every 8 (eight) hours if needed for headaches. 60 tablet 06/29/20 25 Active methocarbamol (Robaxin) 750 MG tablet Take 750 mg by mouth if needed each day for muscle spasms. 025 Discontinued(T herapy completed) FLUoxetine (PROzac) 20 MG capsule Take 2 capsules (40 mg) by mouth Once per day. 90 capsule 01/12/20 25 025 Discontinued ferrous gluconate (Fergon) 324 (37.5 Fe) MG tablet TAKE 1 TABLET BY MOUTH WITH BREAKFAST. 01/13/20 25 025 Discontinued(R eorder (will not trigger notification to Pharmacy)) Multiple Vitamin (multivitamin) tabletIndication s:Healthcare maintenance Take 1 tablet by mouth Once per day. 30 tablet 3 04/11/20 25 025 Discontinued(R eorder (will not trigger notification to Pharmacy)) montelukast (Singulair) 10 MG tabletIndication s:Asthma, unspecified asthma severity, unspecified whether complicated, unspecified whether persistent Take 1 tablet (10 mg) by mouth at bedtime. 30 tablet 2 04/11/20 25 025 Discontinued(T herapy completed) hydrOXYzine pamoate (Vistaril) 25 MG capsuleIndicatio ns:Anxiety with depression Take 1 capsule (25 mg) by mouth every 6 (six) hours if needed for itching. 30 capsule 2 04/11/20 025 Discontinued(T herapy completed) Active Problems Problem Noted Date Diagnosed Date Autism spectrum disorder 06/29/2025 Class 3 severe obesity due t o excess calories without serious comorbidity with body mass index (BMI) of 40.0 to 44.9 in adult 06/29/2025 RLS (restless legs syndrome) 06/29/2025 Growth of ear canal 06/29/2025 Sleep apnea 01/25/2025 Assessment & Plan (01/25/2025 12:00 PM EDT): Patient reports was diagnosed with sleep apnea a couple of years ago in [place], reports she does not have supplies, no reports available. At this moment will need to proceed with new study. Report using CPAP. Anxiety with depression 01/25/2025 Bipolar disorder, in partial remission, most recent episode mixed ([facility]) 01/11/2025 Assessment & Plan (01/25/2025 12:03 PM [...] requesting a podiatry evaluation, will place referral Resolved Problems Problem Noted Date Diagnosed Date Resolved Date Cervical cancer screening 01/25/2025 Assessment & Plan (01/25/2025 12:03 PM EDT): 24 y.o. here for cervical cancer screening. Will continue monitoring following ASCCP guidelines. Acute vaginitis 01/25/2025 06/29/2025 Assessment & Plan (01/25/2025 12:03 PM EDT): Consistent with BV, will send swab and rx metronidazole 500 mg BID Encounter for medical examin ation to establish care 01/11/2025 06/29/2025 Assessment & Plan (01/11/2025 1:21 PM EDT): Last pcp visit 6 months ago ER: stair fall April 2024 @ [facility] Hospitalizations: mental health 2023 Pmhx: autism, bipolar depression, boderline personality, adhd, cptsd, sleep apnea, iron def anemia, pre diabetes PSHX: cholecystectomy 2020, All: juniper/gin Meds Encounter for initial prescr iption of contraceptive pills 01/11/2025 06/29/2025 Encounters Date Type Department Care Team Description 07/19/2025 1:45 PM EST Office Visit [facility] [address] [place] [phone] Tarsang, Peggy, OD Subjective visual disturbance (Primary Dx); Regular astigmatism, bilateral 07/19/2025 Travel 07/14/2025 Travel 06/30/2025 Telephone [facility] [address] [place] [address] Brittni Vargas MD Durable Medical Equipment 06/29/2025 9:15 AM EDT Office Visit [facility] [address] [place] [address] Brittni Vargas MD Autism spectrum disorder (Primary Dx); Healthcare maintenance; Class 3 severe obesity due to excess calories without serious comorbidity with body mass index (BMI) of 40.0 to 44.9 in adult (HCC); RLS (restless legs syndrome); Sleep apnea, unspecified type; Chronic pain of right knee; Chronic pain of left knee; Growth of ear canal; Wheezing; Encounter for immunization 06/29/2025 Travel 06/27/2025 Telephone [facility] [address] [place] [address] Brittni Vargas MD chart prep 06/24/2025 Patient Outreach [facility] [address] [place] [address] Brittni Vargas MD Pre-visit Planning (SDOH screening completed on 02/10/25) 06/22/2025 Travel 06/16/2025 2:30 PM EDT Nutrition [facility] [address] [place] [address] Bipolar disorder, in partial remission, most recent episode mixed (CMS/HCC) ([facility]) 06/03/2025 Telephone [facility] [address] [place] [address] Nutrition referral 05/30/2025 9:40 AM EDT Office Visit [facility] [address] [place] [address] Iqra Mars MD Other migraine with status migrainosus, not intractable (Primary Dx); Dehydration 05/30/2025 Travel 04/21/2025 Refill [facility] [address] [place] [address] Neville Barbosa MD 04/20/2025 Refill [facility] [address] [place] [address] Neville Barbosa MD 04/19/2025 Refill [facility] [address] [place] [address] Neville Barbosa MD from Last 3 Months Immunizations Immunization Administration Dates Next Due Influenza, Injectable, MDCK, preservative free 0 05/05/2025 Tdap 06/29/2025 Family History Medical History Relation Name Comments [...] Sign Reading Time Taken Comments Blood Pressure 116/80 06/29/2025 9:06 AM EDT Pulse 80 06/29/2025 9:06 AM EDT Temperature 36.4 C (97.5 F) 06/29/2025 9:06 AM EDT Respiratory Rate 20 06/29/2025 9:06 AM EDT Oxygen Saturation 98% 06/29/2025 9:06 AM EDT Inhaled Oxygen Concentration - - Weight 113 kg (249 lb 12.8 oz) 06/29/2025 9:06 A M EDT Height 165.1 cm (5' 5 ) 06/29/2025 9:06 AM EDT Body Mass Index 41.57 06/29/2025 9:06 AM EDT Plan of Treatment Upcoming Encounters Date Type Department Care Team (Late st Contact Info) Description 08/12/2025 2:15 PM EST Office Visit [facility] [address] [place], [place] [phone] Brittni Vargas MD [address] [place], [place] [phone] 09/22/2025 2:00 PM EST Clinical Support [facility] [address] [place], [place] [phone] Savanna Simmons, RD [address] [place] [address] Health Maintenance Due Date Last Done Comments Derm Melanoma Skin Check 1998 HPV Vaccines (1 - 3-dose series) 2013 Hepatitis B Vaccines (1 of 3 - 19+ 3-dose series) 2017 Pneumococcal Vaccine: Pediatrics (0 to 5 Years) and At-Risk Patients (6 to 49) Years (1 of 2 - PCV) 2017 COVID-19 Vaccine (1 - 2023-2 5 season) 2025 Depression Monitoring 07/28/2025 01/25/2025 , 01/25/2025 SDOH Screening 02/10/2026 02/10/2025 Family Planning (PISQ) 04/11/2026 04/11/2025 Alcohol/Substance Use Screening 06/29/2026 06/29/2025 Disability Screening 06/29/2026 06/29/2025 Tobacco Screening 07/19/2026 07/19/2025 Pap Smear 01/26/2028 01/25/2025 Lipid Panel 01/25/2030 01/25/2025 DTaP/Tdap/Td Vaccines (2 - T d or Tdap) 06/29/2035 06/29/2025 Zoster Vaccines (1 of 2) 2048 RSV [...] Procedure Name Priority Date/Time Associated Diagnosis Comments CBC WITH AUTO DIFFERENTIAL Routine 07/19/2025 4:09 PM EST Healthcare maintenance HCG, TOTAL, QN Routine 05/30/2025 10:57 AM EDT BASIC METABOLIC PANEL Routine 05/30/2025 10:57 AM EDT CBC WITH AUTO DIFFERENTIAL Routine 05/30/2025 10:57 AM EDT HEPATITIS C AB W/REFL TO HCV [...] Maintenance Results * (ABNORMAL) CBC auto differential (07/19/2025 4:09 PM EST) Only the most recent of2 resultswithin the time period is included. White Blood Count 15.3(H) 4.8 - 10.8 X10*3/uL [facility] Red Blood Count 4.76 4.20 - 5.50 X10*6/uL [facility] Hemoglobin 13.3 12.0 - 16.0 g/dl [facility] Hematocrit 41.0 37.0 - 47.0 % [facility] Mean Corpuscular Volume 86.1 80.0 - 98.0 fL [facility] Mean Corpuscular Hemoglobin 27.9 27.0 - 33.0 pg [facility] Mean Corpuscular HGB Conc 32.4 31.0 - 35.0 g/dl [facility] Red Cell Distribution Width 12.5 11.0 - 16.0 % [facility] Platelet Count 388 160 - 400 X10*3/uL [facility] Mean Platelet Volume 9.2(L) 9.4 - 12.3 fL [facility] Neutrophils Percent Auto 70.8 45 - 73 % [facility] Imm Gran Pct Auto 0.5(H) 0.0 - 0.4 % [facility] Lymphocytes Percent Auto 22.2 20 - 40 % [facility] Monocytes Percent Auto 4.1 2 - 11 % [facility] Eosinophils Percent Auto 2.1 0 - 4 % [facility] Basophils Percent Auto 0.3 0 - 2 % [facility] NRBC Pct Auto 0.0 0.0 - 0.2 /100WBC [facility] Neutrophils Absolute Auto 10.8(H) 2.0 - 8.3 x10*3/uL [facility] Imm Gran Abs Auto 0.08(H) 0.00 - 0.03 X10*3/uL [facility] Lymphocytes Absolute Auto 3.4 1.2 - 4.9 X10*3/uL [facility] Monocytes Absolute Auto 0.6 0.1 - 1.2 X10*3/uL [facility] Eosinophils Absolute Auto 0.3 0.0 - 0.4 X10*3/uL [facility] Basophils Absolute Auto 0.1 0.0 - 0.2 X10*3/uL [facility] NRBC Abs Auto 0.000 0.0 - 0.012 X10*3/uL [facility] Blood Venous blood specimen / Unknown 07/19/2025 4:09 PM EST 07/19/2025 4:09 PM EST us Brittni Vargas MD LAB BLOOD ORDERABLES Final Re sult [facility] [address] [place] [address] [phone] * hCG, Total, Quantitative (05/30/2025 10:57 AM EDT) HCG Quantitative <2 mIU/mL [facility] Comment:Weeks post LMP Appro ximate hCG(Last Menstrual Period) Range (mIU/ml)3 - 4 weeks 9 - 1304 - 5 weeks 75 - 2,6005 - 6 weeks 850 - 20,8006 - 7 weeks 4000 - 100,2007 - 12 weeks 11,500 - 289,60025 - 16 weeks 18,300 - 137,53291 - 29 weeks (2nd trimester) 1,400 - 53,28506 - 41 weeks (3rd trimester) 940 - [...] ORDERAB LES Final Result Performing Organization Address City/[facility]/ZIP Co de Phone Number [facility] [address] [place] [address] [phone] * (ABNORMAL) Basic Metabolic Panel (05/30/2025 10:57 AM EDT) Sodium 137 135 - 145 mmol/L [facility] Potassium 4.2 3.3 - 5.1 mmol/L [facility] Comment:Slight Hemolysis.Int erpret result with caution. Chloride 107 96 - 108 mmol/L [facility] Carbon Dioxide 24 22 - 29 mmol/L [facility] Anion Gap 10(L) 12 - 20 [facility] Urea Nitrogen (BUN) 16 9 - 16 mg/dL [facility] Creatinine, Serum 0.64 0.5 - 1.4 mg/dL [facility] Creatinine Clr Calc Pharmacy 162.0 [facility] Comment:Provided height and weight: 162.56 cm,112.3 kg.eGFR (calculated from the MDRD study equation) and eCrCl(calculated from the Cockcroft-Gault equation) are based ondifferent parameters and may not yield comparable results.If eCrCl result is absurd, please check patient'sheight/weight. Estimated Glomerular Filt Rate >60 [facility] Comment:Chronic Kidney Disea se: Estimated GFR < 60 mL/min/1.15w5Iierob Kidney Disease: Estimated GFR < 15 mL/min/1.73m2 Glucose 109 60 - 115 mg/dL [facility] Calcium 8.9 8.4 - 10.2 mg/dL [facility] 05/30/2025 10:5 7 AM EDT 05/30/2025 11:06 AM EDT us Generic External Data Provider LAB BLOOD ORDERAB LES Final Result Performing Organization Address [facility]/ZIP Co de Phone Number [facility] [address] [place] [address] [phone] * Hepatitis C Antibody with Reflex to HCV, RNA, Quantitative, Real-Time PCR (01/25/2025 1:22 PM EDT) Hepatitis C Antibody Nonreactive Nonreactive [facility] Comment:Antibodies to HCV no t detected; does not exclude early acuteHCV infection. Blood Venous blood specimen / Unknown 01/25/2025 1:22 PM EDT 01/25/2025 2:14 PM EDT Neville Monteiro MD LAB BLOOD ORDERABL ES Final Result Performing Organization Address [facility]/ZIP Co de Phone Number [facility] [address] [place] [address] [phone] * HIV-1/2 Antigen and Antibodies, Fourth Generation, with Reflexes (01/25/2025 1:22 PM EDT) Pathologist [facility] HIV AB/AG Nonreactive Nonreactive [facility] Comment:HIV-1 p24 Ag and/or HIV-1/HIV-2 Ab not detected.A test result that is nonreactive does not exclude thepossibility of exposure to or infection with HIV-1 and/orHIV-2. Nonreactive results in this assay for individualswith prior exposure to HIV-1 and/or HIV-2 may be due toantigen and antibody levels that are below the limit ofdetection of this assay.The [email or web address] HIV Ag/Ab Combo assay result andsupplemental assay results should be interpreted inconjunction with the patient's clinical presentation,history and other laboratory results. If the results areinconsistent with clinical evidence, additional testing issuggested to confirm the result. Blood Venous blood specimen / Unknown 01/25/2025 1:22 PM EDT 01/25/2025 2:14 PM EDT Neville Monteiro MD LAB BLOOD ORDERABL ES Final Result Performing Organization Address [facility]/ZIP Co de Phone Number [facility] [address] [place] [address] [phone] * (ABNORMAL) Lipid Panel, Standard (01/25/2025 1:22 PM EDT) Triglycerides 93 <150 mg/dL [facility] Comment:Desirable Triglyceri de: less than 150 mg/dLBorderline High Triglyceride 150-199 mg/dLHigh Triglyceride: 200-499 mg/dLVery High Triglyceride: greater than or equal to 5OO mg/dL Cholesterol 161 <200 mg/dL [facility] Comment:Desirable Cholestero l: less than 200 mg/dLBorderline High Cholesterol: 200-239 mg/dLHigh Cholesterol: greater than 239 mg/dL LDL Cholesterol Calculated 114(H) <100 mg/dL [facility] Comment:Desirable LDL: less than 100 mg/dLNear Optimal/Above Optimal LDL: 110- 129 mg/dLBorderline High LDL: 130-159 mg/dLHigh LDL: 160-189 mg/dLVery High LDL: greater than or equal to 190 mg/dL HDL Cholesterol 29(L) >40 mg/dL [facility] Comment:Desirable HDL: great er than 40 mg/dL Note: This HDL assay may give artificially low results in patients with liver disease. Blood Venous blood specimen / Unknown 01/25/2025 1:22 PM EDT 01/25/2025 2:14 PM EDT us Neville Monteiro MD LAB BLOOD ORDERABL ES Final Result [facility] [address] [place] [phone] * Pap Smear (01/25/2025 1:09 PM EDT) Swab Cervical swab / Unknown 01/25/2025 1:09 PM EDT 01/26/2025 9:30 AM EDT Narrative [facility] - 01/28/2025 9:27 AM EDT ----- ------- Name: Silvia Parham Age/Sex: 24/F : 2000 Unit#: [id number] Attend Dr: Brittni Vargas MD Re01/25/25 Status: DEP REF Location: [facility] Disch: ----- ------- SPEC : [id number] RECD: 01/26/25 STATUS: JULI MOISE NUM: [id number] FABIANO: 01/25/25-[address] [facility] [address]: Brittni Vargas MD ENTERED: 01/26/25-1021 SP TYPE: Pap Smr OTHR DR: ORDERED: Pap Smear Interpretation Satisfactory for evaluation. Negative for intraepithelial lesion or malignancy. Moderate inflammation. Clinical Information LMP: 01/02/2025 Previous PAP test: Unknown date/findings Material Received ThinPrep-Cervical ----- ------- Signed (signature on file) OLGA Babin ([facility]) 01/28/2527 ----- ------- END OF REPORT Brittni Vargas MD LAB CYTOLOGY ORDERABLES Final Result [facility] [address] [place] [address] [phone] from Last 3 Months or Most Recently Relevant to Health Maintenance Insurance [facility] C3 Care Teams Almond Paste Mixer Relationship Specialty Start Date End Date Brittni Vargas MD [address] [place] [phone] PCP - General Family Medicine 04/11/25 Alex Martinez CARRIER DRIVER Nurse Practitioner Psychiatry 04/29/25
--- OUTSIDE RECORDS SUMMARY | 2025-07-19 17:07 | XMS_ITS | Encounter Summary ---
Author Organization [employer] Address [address] [facility] [address] [place] [address] Care Team Providers Care Supervisor Powdered Metal Name Role Phone Brittni Vargas MD Primary Care Provider [phone] Encounter Details Date Type Department Care Team (Latest Contact Info) Description 07/14/2025 Travel Social History Tobacco Use Types Packs/Day [...] Description 08/12/2025 2:15 PM EST Office Visit [facility] [address] [place], [place] [phone] Brittni Vargas MD [address] [place], [place] [phone] 09/22/2025 2:00 PM EST Clinical Support [facility] [address] [place], [place] [phone] Savanna Simmons, RD [address] [place], [place] [phone] documented as of this encounter Visit Diagnoses Not on filedocumented in this encounter Additional Health Concerns Assessment Noted Time PHQ-9 Depression Total Score: 11 025 1:24 PM EDT documented as of this encounter Care Teams Supervisor Powdered Metal Relationship Specialty Start Date End Date Brittni Vargas MD [address] [place] [address] PCP - General Family Medicine 04/11/25 Alex Martinez, ASSOCIATE PROFESSOR OF BIBLICAL STUDIES Nurse Practitioner Psychiatry 04/29/25 documented as of this encounter
--- OUTSIDE RECORDS SUMMARY | 2025-07-19 17:07 | XMS_ITS | Encounter Summary ---
Author Organization [employer] Address [address] [facility] [address] [place] [address] Care Team Providers Care Live Truck Operator Name Role Phone Brittni Vargas MD Primary Care Provider [phone] Encounter Details Date Type Department Care Team (Latest Contact Info) Description 07/19/2025 Travel Social History Tobacco Use Types Packs/Day [...] Description 08/12/2025 2:15 PM EST Office Visit [facility] [address] [place], [place] [phone] Brittni Vargas MD [address] [place], [place] [phone] 09/22/2025 2:00 PM EST Clinical Support [facility] [address] [place], [place] [phone] Savanna Simmons, RD [address] [place], [place] [phone] documented as of this encounter Visit Diagnoses Not on filedocumented in this encounter Additional Health Concerns Assessment Noted Time PHQ-9 Depression Total Score: 11 025 1:24 PM EDT documented as of this encounter Care Teams Live Truck Operator Relationship Specialty Start Date End Date Brittni Vargas MD [address] [place] [address] PCP - General Family Medicine 04/11/25 Alex Martinez, ACCOUNTING SYSTEMS MANAGER Nurse Practitioner Psychiatry 04/29/25 documented as of this encounter
[2025-07-19 17:13] LABS: Alanine Aminotransferase 14 U/L (0-31); Albumin Level 3.6 g/dL (3.5-5.0); Alkaline Phosphatase 57 U/L (39-117); Anion Gap 10 (12-20); Aspartate Amino Transferase 19 U/L (5-31); Blood Urea Nitrogen 16 mg/dL (9-16); Calcium 8.5 mg/dL (8.4-10.2); Carbon Dioxide 23 mmol/L (22-29); Chloride 108 mmol/L (96-108); Cholesterol 154 mg/dL (<200); Estimated Glomerular Filt Rate > 60; HDL Cholesterol 41 mg/dL (>40); Potassium 4.4 mmol/L (3.3-5.1); Sodium 137 mmol/L (135-145); Total Protein 5.9 g/dL (6.5-8.0); Triglycerides 109 mg/dL (<150)
[2025-07-20 04:44] LABS: HBS Num1 23.83 mIU/mL (0-7.99); HBc Num1 0.05 S/CO (0.00-0.79); HBsAGNum1 0.34 S/CO (0.00-0.99); Hepatitis B Surface Antigen Negative (Negative); ~Hepatitis B Surface Antibody REACTIVE (Nonreactive)
== END 2025-07-19 15:29 | disposition home or self-care (01) ==
LOC: HO.XRAY 15:28
PROVIDERS: PCP Family Medicine; Visit Provider Family Medicine
DX: Z00.00 Encounter for general adult medical examination without abnormal findings (principal); M25.561 Pain in right knee; Z11.59 Encounter for screening for other viral diseases
CPT/HCPCS: 36415; 73564; 80053; 80061; 84443; 85025; 86704; 86706; 87340

== ENCOUNTER → 2025-07-19 15:34 | Outpatient (BNV) | payer MEDICAID, SELFPAY | PROVIDERS: PCP Family Medicine; Visit Provider Radiology Diagnostic Ultrasound | DX: M25.561 Pain in right knee (principal); M25.562 Pain in left knee | CPT/HCPCS: 73564 ==